=== PATIENT | female | born 1950 ===

== ENCOUNTER 2017-01-28 16:16 | Emergency (ER) | payer OTHER ==
--- NOTE | 2017-01-28 19:30 | C.PDOC ---
History Of Present Illness 66 y/o female presents to ED with complaints of exacerbation of baseline dizziness, occipital headache, and elevated blood pressure. Patient also reports c/o of left foot pain, particularly in the arch, noting it worsens with walking up stairs. Patient states she took her normal morning medications today. Otherwise, denies leg swelling, chest pain, palpitations, visual changes , nausea, vomiting, or other complaints. Time Seen by Provider: 01/28/17 19:20 Chief Complaint (Nursing): Dizziness/Lightheaded History Per: Patient History/Exam Limitations: no limitations Onset/Duration Of Symptoms: Days Current Symptoms Are (Timing): Still Present Fall Associated With With Symptoms: No Recent travel outside of the [place]: No Past Medical History Reviewed: Historical Data, Nursing Documentation, Vital Signs Vital Signs: Last Vital Signs Temp 97.7 F 01/28/17 21:17 Pulse 57 L 01/28/17 21:17 Resp 18 01/28/17 21:17 BP 149/77 01/28/17 21:17 Pulse Ox 98 01/28/17 21:35 - Medical History PMH: HTN, Hypercholesterolemia, Kidney Stones, Chronic Kidney Disease (kidney stones) Surgical History: Appendectomy - [facility] Procedures INJECT/INFUSE NEC (08/22/14) INTRODUCTION OF SERUM/TOX/VACCINE INTO MUSCLE, PERC APPROACH (09/04/16) UMBIL HERNIA REPAIR NEC (07/21/98) Family History: States: Hypertension - Social History Hx Alcohol Use: No Hx Substance Use: No - Immunization History Hx Influenza Vaccination: Yes Review Of Systems Except As Marked, All Systems Reviewed And Found Negative. Constitutional: Negative for: Fever, Chills Cardiovascular: Negative for: Chest Pain, Palpitations Respiratory: Negative for: Cough, Shortness of Breath Gastrointestinal: Negative for: Nausea, Vomiting Skin: Negative for: Rash Neurological: Positive for: Headache, Dizziness. Negative for: Weakness, Numbness Physical Exam - Physical Exam Appears: Non-toxic, No Acute Distress Skin: Normal Color, Warm, Dry Head: Atraumatic, Normacephalic Eye(s): bilateral: Normal Inspection, EOMI Nose: Normal Oral Mucosa: Moist Chest: Symmetrical Cardiovascular: Rhythm Regular Respiratory: Normal Breath Sounds, No Rales, No Rhonchi, No Wheezing Gastrointestinal/Abdominal: Soft, No Tenderness, No Guarding, No Rebound Back: Normal Inspection Extremity: Normal ROM, Tenderness (mild, arch of left foot), No Pedal Edema, Capillary Refill (< 2 sec.), No Deformity, No Swelling Extremity: Bilateral: Normal Color And Temperature Pulses: Left Dorsalis Pedis: Normal, Right Dorsalis Pedis: Normal Neurological/Psych: Oriented x3, Normal Speech, Normal Cognition ED Course And Treatment - Laboratory Results Result Diagrams: 01/28/17 19:41 01/28/17 19:41 Lab Interpretation: Normal (ua neg.) ECG: Interpreted By Me ECG Rhythm: Sinus Rhythm ECG Interpretation: Normal Rate From EC O2 Sat by Pulse Oximetry: 98 (RA) Pulse Ox Interpretation: Normal - Radiology CXR: Interpreted by Me CXR Interpretation: Yes: No Acute Disease - CT Scan/US Head CT Other Rad Studies (CT/US): Read By Radiologist, Radiology Report Reviewed CT/US Interpretation: IMPRESSION: 1. No definite acute intracranial abnormality. 2. Incidental/non-acute findings are described above. Progress Note: CT Head, EKG, CxR, bloodwork ordered. Treated with Toradol, Ultram, Vasotec. Placed on lunchroom monitor. CT head returns negative for acute abnormality. Reevaluation Time: 21:36 Reassessment Condition: Improved (MONSON and HTN resolved) Medical Decision Making Medical Decision Making: elevated bp even with good med compliance increase/maximize Zestril 20-> 40 mg daily, f/u in Clinic. Disposition Doctor Will See Patient In The: Office Counseled Patient/Family Regarding: Studies Performed, Diagnosis - Disposition Disposition: HOME/ ROUTINE Disposition Time: 21:37 Condition: GOOD Additional Instructions: Augmenta arnold Zestril de 20 mg diario hasta 40 mg diario. Sigue con arnold medico o' en la Clinica en 2-3 semanas. Prescriptions: Lisinopril [Zestril] 40 mg PO DAILY #30 tab Instructions: Hypertension (ED) Print Language: PORTUGUESE - Clinical Impression Clinical Impression: HTN (hypertension), Headache - Scribe Statement The provider has reviewed the documentation as recorded by the Ana Pimentel Provider Attestation: All medical record entries made by the Estephanieibyao were at my direction and personally dictated by me. I have reviewed the chart and agree that the record accurately reflects my personal performance of the history, physical exam, medical decision making, and the department course for this patient. I have also personally directed, reviewed, and agree with the discharge instructions and disposition.
[2017-01-28] MEDS ORDERED: Sodium Chloride 0.9% 1,000 ML ONE (19:42)
[2017-01-28 19:54] LABS: BASO # 0.1 K/uL (0.0-0.2); BASO % 0.8 % (0.0-2.0); EOS # 0.3 K/uL (0.0-0.7); EOS % 4.1 % (0.0-4.0); HEMATOCRIT 39.1 % (34.0-47.0); LYMPH # 2.1 K/uL (1.0-4.3); LYMPH % 29.5 % (20.0-40.0); MEAN CELL VOLUME 89.4 fL (81.0-99.0); MEAN CORPUSCULAR HEMOGLOBIN 29.7 pg (27.0-31.0); MEAN CORPUSCULAR HGB CONC 33.2 g/dL (33.0-37.0); MEAN PLATELET VOLUME 10.1 fL (7.2-11.7); MONO # 0.4 K/uL (0.0-0.8); MONO % 5.7 % (0.0-10.0); RED CELL DISTRIBUTION WIDTH 12.9 % (11.5-14.5); WHITE BLOOD COUNT 7.1 K/uL (4.8-10.8)
[2017-01-28 20:02] LABS: CHLORIDE 104 mmol/L (98-107)
[2017-01-28 20:03] LABS: SODIUM 138 mmol/L (132-148)
[2017-01-28 20:04] LABS: INR 1.1
[2017-01-28 20:05] LABS: CARBON DIOXIDE 27 mmol/L (22-30); CHOLESTEROL 205 mg/dL (0-199)
[2017-01-28 20:06] LABS: ALB/GLOB RATIO 1.2 (1.0-2.1); ALKALINE PHOSPHATASE 74 U/L (38-126); ALT/SGPT 12 U/L (9-52); AST/SGOT 49 U/L (14-36); BILIRUBIN,TOTAL 1.2 mg/dL (0.2-1.3); BLOOD UREA NITROGEN 15 mg/dL (7-17); GFR AFRICAN-AMERICAN > 60; GLUCOSE,RANDOM 95 mg/dL (65-105); TOTAL PROTEIN 8.2 g/dL (6.3-8.3)
[2017-01-28 20:13] LABS: POTASSIUM 5.3 mmol/L (3.6-5.2)
[2017-01-28 20:14] LABS: RBC URINE < 1 /hpf (0-3); URINE BACTERIA RARE (<OCC); URINE BILIRUBIN NEGATIVE (NEGATIVE); URINE BLOOD 2+ (NEGATIVE); URINE COLOR Straw (YELLOW); URINE GLUCOSE (UA) NORMAL (Normal); URINE KETONE NEGATIVE (NEGATIVE); URINE LEUKOCYTE ESTERASE 1+ Leu/uL (Negative); URINE PROTEIN NEGATIVE (NEGATIVE); URINE UROBILINOGEN NORMAL mg/dL (0.2-1.0); WBC URINE 1 /hpf (0-5)
[2017-01-28 20:28] VITALS: RESP 18
--- NOTE | 2017-01-28 21:09 | CT ---
EXAM: CT Head Without Intravenous Contrast CLINICAL HISTORY: 66 years old, female; Signs and symptoms; Other: High blood pressure; Additional info: Occ MONSON, elev BP, h/o vertigo, ? cerebellar TECHNIQUE: Axial computed tomography images of the head/brain without intravenous contrast. This CT exam was performed using one or more of the following dose reduction techniques: automated exposure control, adjustment of the mA and/or kV according to patient size, and/or use of iterative reconstruction technique. COMPARISON: No relevant prior studies available. FINDINGS: Brain: Mild atrophy. No intracranial hemorrhage. No mass. No definite edema. Ventricles: No hydrocephalus. Bones/joints: No acute fracture. Soft tissues: Unremarkable. Vasculature: Mild atherosclerotic disease of intracranial arteries. Sinuses: Scattered minimal to mild mucosal thickening. Mastoid air cells: No mastoid effusion. Orbits: Unremarkable as visualized. IMPRESSION: 1. No definite acute intracranial abnormality. 2. Incidental/non-acute findings are described above.
[2017-01-28 21:18] VITALS: BP 149/77; PULSE 57; TEMP 97.7
[2017-01-28 21:20] VITALS: O2SAT 98
--- NOTE | 2017-01-29 08:45 | RAD ---
HISTORY: Admission film COMPARISON: No prior. FINDINGS: LUNGS: Diffuse increased interstitial lung markings. No focal infiltrate or effusion. Mild venous congestion. Biapical pleural thickening with upper lobe granulomatous changes. PLEURA: No significant pleural effusion identified, no pneumothorax apparent. CARDIOVASCULAR: Tortuous aorta. OSSEOUS STRUCTURES: Degenerative changes in the spine and shoulders. Question minimal tendinopathy of the right proximal humerus. VISUALIZED UPPER ABDOMEN: Normal. OTHER FINDINGS: None. IMPRESSION: Diffuse increased interstitial lung markings. No focal infiltrate or effusion. Mild venous congestion. Biapical pleural thickening with upper lobe granulomatous changes.
--- NOTE | 2017-01-31 00:27 | CARD ---
APPROVED REPORT EKG Measurement Heart [id number] <Conclusion> Sinus bradycardia Otherwise normal ECG
== END 2017-01-28 21:50 | disposition home or self-care (01) ==
LOC: C.ER 16:16
DX: I10 Essential (primary) hypertension (principal); R51 Headache
CPT/HCPCS: 70450; 71010; 80053; 80061; 81001; 82948; 83036; 84484; 85025; 85610; 85730; 96374; 99285; J1885

== ENCOUNTER 2017-03-07 16:32 | Inpatient (IN) | payer MEDICAID, OTHER ==
--- NOTE | 2017-03-07 17:02 | C.PDOC ---
History Of Present Illness 66 y/o female sent to the emergency department from the clinic with complaints of headache and blurry vision, which she has had for 2 days. Patient with reported elevated BP in the clinic. Sent to ER for evaluation to r/o stroke. Pt at bedside reports mild right leg pain she has had for the last month. Denies any other symptoms. Time Seen by Provider: 03/07/17 16:47 Chief Complaint (Nursing): High Blood Pressure History Per: Patient History/Exam Limitations: no limitations Onset/Duration Of Symptoms: Days Current Symptoms Are (Timing): Still Present Associated Symptoms: Blurred Vision, Headache Recent travel outside of the [place]: No Past Medical History Reviewed: Historical Data, Nursing Documentation, Vital Signs Vital Signs: Last Vital Signs Temp 98.3 F 03/08/17 04:00 Pulse 52 L 03/08/17 04:00 Resp 20 03/08/17 04:00 BP 151/67 H 03/08/17 04:00 Pulse Ox 98 03/08/17 04:00 - Medical History PMH: HTN, Hypercholesterolemia, Kidney Stones, Chronic Kidney Disease (kidney stones) Surgical History: Appendectomy - [facility] Procedures INJECT/INFUSE NEC (08/22/14) INTRODUCTION OF SERUM/TOX/VACCINE INTO MUSCLE, PERC APPROACH (09/04/16) UMBIL HERNIA REPAIR NEC (07/21/98) Family History: States: Hypertension - Social History Hx Alcohol Use: No Hx Substance Use: No - Immunization History Hx Influenza Vaccination: Yes Review Of Systems Except As Marked, All Systems Reviewed And Found Negative. Constitutional: Negative for: Fever, Chills Eyes: Positive for: Other (blurry vision) Cardiovascular: Negative for: Chest Pain, Palpitations Respiratory: Negative for: Cough, Shortness of Breath, Wheezing Gastrointestinal: Negative for: Nausea, Vomiting Musculoskeletal: Positive for: Leg Pain (right). Negative for: Neck Pain Neurological: Positive for: Headache. Negative for: Weakness, Numbness, Dizziness Physical Exam - Physical Exam Appears: Non-toxic, No Acute Distress Skin: Normal Color, Warm, Dry Head: Atraumatic, Normacephalic Eye(s): bilateral: Normal Inspection, PERRL, EOMI Oral Mucosa: Moist Neck: No Paracervical Tenderness, Supple Chest: Symmetrical Cardiovascular: Rhythm Regular, No Murmur Respiratory: Normal Breath Sounds, No Accessory Muscle Use, No Rales, No Rhonchi , No Wheezing Gastrointestinal/Abdominal: Soft, No Tenderness, No Guarding, No Rebound Back: Normal Inspection Extremity: Normal ROM, Capillary Refill (< 2 sec. ) Neurological/Psych: Oriented x3, Normal Speech, Normal Cognition, Normal Motor, Normal Sensation ED Course And Treatment - Laboratory Results Result Diagrams: 03/08/17 06:44 03/08/17 06:40 O2 Sat by Pulse Oximetry: 98 (RA) Pulse Ox Interpretation: Normal - CT Scan/US CT Head Other Rad Studies (CT/US): Read By Radiologist, Radiology Report Reviewed CT/US Interpretation: FINDINGS: HEMORRHAGE: No intracranial hemorrhage. BRAIN : No mass effect or edema. The duque-white matter differentiation appears intact. Re-identified 5 mm right basal ganglia lacunar infarct versus dilated perivascular space. Please note that MRI with diffusion imaging is more sensitive in the detection of acute ischemic event. VENTRICLES: No hydrocephalus. CALVARIUM: Unremarkable. PARANASAL SINUSES: Unremarkable as visualized. No significant inflammatory changes. MASTOID AIR CELLS: Unremarkable as visualized. No inflammatory changes. OTHER FINDINGS: None. IMPRESSION: No acute findings. See above. NIHSS Stroke Scale - Date/Time Evaluation Performed Date Performed: 03/07/17 Time Performed: 18:45 - How Severe is the Stoke Level of Consciousness: 0=Alert LOC to Questions: 0=Both comments correct LOC to commands: 0=Obeys both correctly Best Gaze: 0=Normal Visual: 3=Bilateral Facial: 0=Normal Motor Arm - Left: 0=No drift Motor Arm - Right: 0=No drift Motor Leg - Left: 0=No drift Motor Leg - Right: 0=No drift Limb Ataxia: 0=Absent Sensory: 0=Normal Best Language: 0=No aphasia Dysarthia: 0=Normal articulation Extinction & Inattention (Neglect): 0=Normal, no object Score: 3 Severity Of Stroke: 1-4= Minor Stroke rTPA Inclusion/Exclusion - Refusal of Treatment Patient Refused Treatment: No - Inclusion Criteria for Altepase Patient is 18 years or Older: Yes The Clinical Diagnosis of Ischemic Stroke That is Causing a Potentially Disabling Neurological Deficit: No Time of Onset is Well Established to be Less Than 270 Minute Before Treatment Would Begin: No Risk/Benefit Discussed With Patient/Family Member Present: Yes Medical Decision Making Medical Decision Making: Plan: * Head CT, EKG, CxR, bloodwork * reassess Progress Notes: ekg sinus rohini [address] head negative for acute intracranial abnormality Disposition - Disposition Disposition: HOSPITALIZED Disposition Time: 18:44 Condition: STABLE - Clinical Impression Clinical Impression: Headache, Blurry vision, Hypertensive urgency - Scribe Statement The provider has reviewed the documentation as recorded by the Scribe Yrn Pimentel All medical record entries made by the Scribe were at my direction and personally dictated by me. I have reviewed the chart and agree that the record accurately reflects my personal performance of the history, physical exam, medical decision making, and the department course for this patient. I have also personally directed, reviewed, and agree with the discharge instructions and disposition. Decision To Admit - Pt Status Changed To: Hospital Disposition Of: Inpatient - Admit Certification Admit to Inpatient:: After my assessment, the patient will require hospitalization for at least two midnights. This is because of the severity of symptoms shown, intensity of services needed, and/or the medical risk in this patient being treated as an outpatient. - InPatient: Physician Admission Certification: I certify that this patient requires 2 or more midnights of care for the following reason:: pt hypertensive, r/o cva - . Bed Request Type: Telemetry Admitting Physician: Americo Martínez Patient Diagnosis: Headache, Blurry vision, Hypertensive urgency
[2017-03-07 17:33] LABS: BASO # 0.1 K/uL (0.0-0.2); BASO % 0.8 % (0.0-2.0); EOS # 0.3 K/uL (0.0-0.7); EOS % 4.4 % (0.0-4.0); HEMATOCRIT 39.8 % (34.0-47.0); LYMPH % 31.7 % (20.0-40.0); MEAN CELL VOLUME 89.3 fL (81.0-99.0); MEAN CORPUSCULAR HEMOGLOBIN 30.6 pg (27.0-31.0); MEAN CORPUSCULAR HGB CONC 34.3 g/dL (33.0-37.0); MEAN PLATELET VOLUME 9.8 fL (7.2-11.7); MONO # 0.4 K/uL (0.0-0.8); MONO % 6.7 % (0.0-10.0); RED CELL DISTRIBUTION WIDTH 12.9 % (11.5-14.5); WHITE BLOOD COUNT 6.3 K/uL (4.8-10.8)
[2017-03-07 17:39] LABS: CHLORIDE 99 mmol/L (98-107); POTASSIUM 4.4 mmol/L (3.6-5.2); SODIUM 140 mmol/L (132-148)
[2017-03-07 17:41] LABS: CHOLESTEROL 227 mg/dL (0-199); GFR AFRICAN-AMERICAN > 60
[2017-03-07 17:42] LABS: ALB/GLOB RATIO 1.2 (1.0-2.1); ALKALINE PHOSPHATASE 85 U/L (38-126); ALT/SGPT 42 U/L (9-52); AST/SGOT 32 U/L (14-36); BILIRUBIN,TOTAL 0.5 mg/dL (0.2-1.3); BLOOD UREA NITROGEN 14 mg/dL (7-17); CALCIUM 9.3 mg/dl (8.6-10.4); CARBON DIOXIDE 29 mmol/L (22-30); GLUCOSE,RANDOM 91 mg/dL (65-105); TOTAL PROTEIN 7.7 g/dL (6.3-8.3)
--- NOTE | 2017-03-07 18:02 | CT ---
PROCEDURE: CT HEAD WITHOUT CONTRAST. HISTORY: fay blurry vision COMPARISON: None available. TECHNIQUE: Axial computed tomography images were obtained through the head/brain without intravenous contrast. Radiation dose: Total exam DLP = 819.62 mGy-cm. This CT exam was performed using one or more of the following dose reduction techniques: Automated exposure control, adjustment of the mA and/or kV according to patient size, and/or use of iterative reconstruction technique. FINDINGS: HEMORRHAGE: No intracranial hemorrhage. BRAIN: No mass effect or edema. The duque-white matter differentiation appears intact. Re-identified 5 mm right basal ganglia lacunar infarct versus dilated perivascular space. Please note that MRI with diffusion imaging is more sensitive in the detection of acute ischemic event. VENTRICLES: No hydrocephalus. CALVARIUM: Unremarkable. PARANASAL SINUSES: Unremarkable as visualized. No significant inflammatory changes. MASTOID AIR CELLS: Unremarkable as visualized. No inflammatory changes. OTHER FINDINGS: None. IMPRESSION: No acute findings. See above.
[2017-03-07] MEDS ORDERED: Aspirin 325 mg EC Tablets PO ONE (18:14)
--- NOTE | 2017-03-07 19:56 | CP.PCM.HP ---
<Henry Bolden - Last Filed: 03/08/17 02:25> History of Present Illness - History of Present Illness History of Present Illness: CC: Headache x1week; Blurry vision u9aeisl. HPI: This 66 y/o female with PMHx HTN, Hypercholesterolemia, Kidney Stones, Vertigo - was sent to the emergency department from the clinic due to HTN, complaints of Headache x1wk and Blurry vision x1 month. She went to the clinic to have these symptoms addressed, and admits to overall poor followup with her physician. She describes the headache as occipital in nature, intermittent, lasting for several hours per day, and is not associated with positioning. She also admits to associated light headedness for the past week. She admits to blurry vision for the past month, and describes it as a "thin layer" covering both eyes and causing her vision to be less clear. She has had floaters for many years, and reports that they have not increased or changed significantly. She also wears eye glasses for distance, and does not feel her blurry vision is related to her prescription. Upon further questioning, patient also complains of chest pain on exertion for the past year, especially when walking more than 3 blocks or walking up 3 flights of stairs to her apartment. She does not sleep with any pillows at night and does not get SOB while laying flat. She does c/o mild leg/arm swelling, present at the end of a long day, most days of the week, with intermittent tingling of the L fingertips when the arm is swollen. Of note , patients dose of lisiopril was increased to 40 last month, however this made her feel light headed. She has reduced her dose to 20mg PO qd for the past 3 weeks, and has felt less lightheaded. Denies f/c, weakness, dizziness, chest pain, SOB, abdominal pain, n/v, d/c, recent travel, numbness, tingling, or any additional acute complaints. 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 PMD: [facility] Review of Systems: -Gen: +headache. denies fever, chills, lethargy, weakness. -HEENT: +blurry vision. denies dizziness, change in hearing, sore throat, dysphagia, congestion. -Cardio: +leg/arm edema at night. denies chest pain, palpitations, orthopnea. -Resp: denies cough, dyspnea, hemoptysis, wheezing, pain on inspiration, congestion, mucous. -GI: pt denies abdominal pain, nausea/vomiting, diarrhea/constipation, hematochezia. -: pt denies dysuria, urinary freq, incontinence, hematuria, change in urinary stream. -MSK: denies back pain, muscle weakness, radiating pain. -Skin: denies itching, rash, lesions. -Neuro: +L arm tingling when arm becomes swollen. denies confusion, focal weakness, radicular pain, syncope. -Psych: denies anxiety, depression, H/I, S/I, hallucinations. Present on Admission - Present on Admission Any Indicators Present on Admission: No Past Patient History - Infectious Disease Hx of Infectious Diseases: None - Tetanus Immunizations Tetanus Immunization: Unknown - Past Medical History & Family History Past Medical History?: Yes - Past Social History Smoking Status: Never Smoked - CARDIAC Hx Hypercholesterolemia: Yes Hx Hypertension: Yes - PULMONARY Hx Respiratory Disorders: No - NEUROLOGICAL Hx Neurological Disorder: No - HEENT Hx HEENT Problems: No - RENAL Hx Chronic Kidney Disease: Yes (kidney stones) Hx Kidney Stones: Yes - ENDOCRINE/METABOLIC Hx Endocrine Disorders: No - HEMATOLOGICAL/ONCOLOGICAL Hx Human Immunodeficiency Virus (HIV): No - INTEGUMENTARY Hx Dermatological Problems: No - MUSCULOSKELETAL/RHEUMATOLOGICAL Hx Musculoskeletal Disorders: Yes Hx Falls: Yes - GASTROINTESTINAL Hx Gastrointestinal Disorders: No - GENITOURINARY/GYNECOLOGICAL Hx Genitourinary Disorders: No - PSYCHIATRIC Hx Substance Use: No - SURGICAL HISTORY Hx Appendectomy: Yes - ANESTHESIA Hx Anesthesia: Yes Hx Anesthesia Reactions: No Hx Malignant Hyperthermia: No Meds Allergies/Adverse Reactions: Allergies Allergy/AdvReac Type Severity Reaction Status Date / Time ibuprofen Allergy Mild RASH Verified 03/07/17 16:40 Physical Exam - Constitutional Appears: Non-toxic, No Acute Distress - Head Exam Head Exam: ATRAUMATIC, NORMAL INSPECTION - Eye Exam Eye Exam: EOMI, Normal appearance (no cataracts appreciated), PERRL - ENT Exam ENT Exam: Mucous Membranes Moist, Normal Exam - Neck Exam Neck exam: Negative for: Lymphadenopathy - Respiratory Exam Respiratory Exam: Clear to Auscultation Bilateral, NORMAL BREATHING PATTERN. absent: Rhonchi, Wheezes - Cardiovascular Exam Cardiovascular Exam: Bradycardia, +S1, +S2. absent: Diastolic murmur Additional comments: no carrotid bruits - GI/Abdominal Exam GI & Abdominal Exam: Normal Bowel Sounds, Soft. absent: Tenderness - Extremities Exam Extremities exam: Positive for: normal inspection, pedal edema (mild), pedal pulses present. Negative for: joint swelling, tenderness - Back Exam Back exam: NORMAL INSPECTION. absent: CVA tenderness (L), CVA tenderness (R) - Neurological Exam Neurological exam: Alert, CN II-XII Intact, Oriented x3, Reflexes Normal Additional comments: NIHSS Stroke Scale - Date/Time Evaluation Performed Date Performed: 03/07/17 Time Performed: 18:45 - How Severe is the Stoke Level of Consciousness: 0=Alert LOC to Questions: 0=Both comments correct LOC to commands: 0=Obeys both correctly Best Gaze: 0=Normal Visual: 3=Bilateral Facial: 0=Normal Motor Arm - Left: 0=No drift Motor Arm - Right: 0=No drift Motor Leg - Left: 0=No drift Motor Leg - Right: 0=No drift Limb Ataxia: 0=Absent Sensory: 0=Normal Best Language: 0=No aphasia Dysarthia: 0=Normal articulation Extinction & Inattention (Neglect): 0=Normal, no object Score: 3 Severity Of Stroke: 1-4= Minor Stroke - Psychiatric Exam Psychiatric exam: Normal Affect, Normal Mood - Skin Skin Exam: Dry, Intact, Normal Color, Warm Additional comments: Cheecks/forehead appeared flushed. Warm to palpation Results - Vital Signs Recent Vital Signs: Last Vital Signs Temp 97.8 F 03/07/17 16:37 Pulse 50 L 03/07/17 18:09 Resp 17 03/07/17 18:09 BP 197/79 H 03/07/17 18:09 Pulse Ox 98 03/07/17 18:45 - Labs Result Diagrams: 03/07/17 17:20 03/07/17 17:20 Assessment & Plan - Assessment and Plan (Free Text) Assessment: Hypertensive Urgency * r/o CVA - no focal deficits appreciated, except for blurry vision x1 month. * ED course: ASA 325 + Hydralazine 10mg * EKG - sinus rohini * CT head negative, see full report * CXR - negative, see full report * BP 191/82 in ED * f/u Echo, BNP * Continue home ASA 81, Lisinopril 20mg PO qd, Lipitor 10mg PO qd Headache / Blurry Vision * CT head w/o contrast - negative * ekg sinus rohini 50 bpm * prior admission 08/2016 - similar complaints, diag. w/ postural hypotension. * Orthostatics Q8 * Neuro consult, Dr. Carter, f/u recs * Tylenol 650mg PO Q6H, PRN headache Hypercholesterolema * Continue home Lipitor 10mg PO qd -> Crestor 5mg PO HS * f/u lipid panel Hx of Vertigo * untreated, never followed up * Antivert 12.5mg PO Q12H * Neuro consult, Dr. Carter, f/u recs Prophylaxis * SCD C/I * heart healthy diet * Pepcid 20mg PO BID * Hep 5k SC q8H - Date & Time Date: 03/07/17 Time: 20:00 <Jaciel Brady - Last Filed: 03/08/17 05:54> Results - Vital Signs Recent Vital Signs: Last Vital Signs Temp 98.3 F 03/08/17 04:00 Pulse 52 L 03/08/17 04:00 Resp 20 03/08/17 04:00 BP 151/67 H 03/08/17 04:00 Pulse Ox 98 03/08/17 04:00 - Labs Result Diagrams: 03/07/17 17:20 03/07/17 17:20 Labs: Laboratory Results - last 24 hr 03/07/17 21:51 POC Glucose (mg/dL) 93 Assessment & Plan - Date & Time Date: 03/08/17 (I have seen and examined the patient. I agree with the findings and plan of care as documented by Dr. Bolden. Patient with hypertensive urgency accompanied with headache/vision changes. Hydralazine given in ED. Continue home meds. Symptomatic treatment. Some improvement but headache still not completely relieved. History of vertigo. Noncompliant with meds. Restarts meclizine. Monitor for acute changes.) Time: 05:53 Attending/Attestation - Attestation I have personally seen and examined this patient.: Yes I have fully participated in the care of the patient.: Yes I have reviewed all pertinent clinical information: Yes
[2017-03-08 07:09] LABS: ALB/GLOB RATIO 1.3 (1.0-2.1); ALKALINE PHOSPHATASE 67 U/L (38-126); ALT/SGPT 36 U/L (9-52); AST/SGOT 30 U/L (14-36); BILIRUBIN,TOTAL 0.3 mg/dL (0.2-1.3); BLOOD UREA NITROGEN 14 mg/dL (7-17); CALCIUM 8.9 mg/dl (8.6-10.4); CARBON DIOXIDE 30 mmol/L (22-30); CHLORIDE 99 mmol/L (98-107); CHOLESTEROL 195 mg/dL (0-199); GFR AFRICAN-AMERICAN > 60; GLUCOSE,RANDOM 97 mg/dL (65-105); MAGNESIUM 1.7 mg/dL (1.6-2.3); PHOSPHOROUS 4.1 mg/dL (2.5-4.5); POTASSIUM 3.8 mmol/L (3.6-5.2); SODIUM 139 mmol/L (132-148); TOTAL PROTEIN 6.4 g/dL (6.3-8.3)
[2017-03-08 07:17] LABS: BASO % 0.8 % (0.0-2.0); EOS # 0.3 K/uL (0.0-0.7); EOS % 5.3 % (0.0-4.0); HEMATOCRIT 37.3 % (34.0-47.0); LYMPH # 1.8 K/uL (1.0-4.3); LYMPH % 35.4 % (20.0-40.0); MEAN CELL VOLUME 89.3 fL (81.0-99.0); MEAN CORPUSCULAR HEMOGLOBIN 30.8 pg (27.0-31.0); MEAN CORPUSCULAR HGB CONC 34.5 g/dL (33.0-37.0); MEAN PLATELET VOLUME 10.2 fL (7.2-11.7); MONO # 0.3 K/uL (0.0-0.8); MONO % 6.7 % (0.0-10.0); NRBC % 0.1 % (0.0-2.0)
[2017-03-08 07:22] LABS: FREE T4 1.24 ng/dL (0.78-2.19)
[2017-03-08 07:35] LABS: THYROID STIMULATING HORMONE 6.23 mIU/L (0.46-4.68)
[2017-03-08 07:36] LABS: THYROID STIMULATING HORMONE 6.37 mIU/L (0.46-4.68)
--- NOTE | 2017-03-08 07:41 | CP.PCM.CON ---
History of Present Illness - History of Present Illness History of Present Illness: consult dictated NO LATERLIZING SIGNS CHCK MRI WORK UP PER ORDER CORRECT BP Past Patient History - Infectious Disease Hx of Infectious Diseases: None - Tetanus Immunizations Tetanus Immunization: Unknown - Past Medical History & Family History Past Medical History?: Yes - Past Social History Smoking Status: Never Smoked - CARDIAC Hx Hypercholesterolemia: Yes Hx Hypertension: Yes - PULMONARY Hx Respiratory Disorders: No - NEUROLOGICAL Hx Neurological Disorder: No - HEENT Hx HEENT Problems: No - RENAL Hx Chronic Kidney Disease: Yes (kidney stones) Hx Kidney Stones: Yes - ENDOCRINE/METABOLIC Hx Endocrine Disorders: No - HEMATOLOGICAL/ONCOLOGICAL Hx Human Immunodeficiency Virus (HIV): No - INTEGUMENTARY Hx Dermatological Problems: No - MUSCULOSKELETAL/RHEUMATOLOGICAL Hx Musculoskeletal Disorders: Yes Hx Falls: Yes - GASTROINTESTINAL Hx Gastrointestinal Disorders: No - GENITOURINARY/GYNECOLOGICAL Hx Genitourinary Disorders: No - PSYCHIATRIC Hx Substance Use: No - SURGICAL HISTORY Hx Appendectomy: Yes - ANESTHESIA Hx Anesthesia: Yes Hx Anesthesia Reactions: No Hx Malignant Hyperthermia: No Meds Allergies/Adverse Reactions: Allergies Allergy/AdvReac Type Severity Reaction Status Date / Time ibuprofen Allergy Mild RASH Verified 03/07/17 16:40 - Medications Medications: Current Medications Acetaminophen (Tylenol 325mg Tab) 650 mg PO Q6 PRN PRN Reason: Headache Aspirin (Ecotrin) 81 mg PO DAILY [facility] Famotidine (Pepcid) 20 mg PO BID [facility] Heparin Sodium (Porcine) (Heparin) 5,000 units SC Q8 [facility] Last Admin: 03/08/17 05:30 Dose: 5,000 units Lisinopril (Zestril) 20 mg PO DAILY [facility] Meclizine HCl (Antivert) 12.5 mg PO Q12H [facility] Last Admin: 03/08/17 00:00 Dose: 12.5 mg Rosuvastatin Calcium (Crestor) 5 mg PO HS [facility] Last Admin: 03/07/17 21:49 Dose: 5 mg Results - Vital Signs Recent Vital Signs: Last Vital Signs Temp 98.3 F 03/08/17 04:00 Pulse 52 L 03/08/17 04:00 Resp 20 03/08/17 04:00 BP 151/67 H 03/08/17 04:00 Pulse Ox 98 03/08/17 04:00 - Labs Result Diagrams: 03/08/17 06:44 03/08/17 06:40 Labs: Laboratory Results - last 24 hr 03/07/17 03/08/17 03/08/17 21:51 06:23 06:40 WBC RBC Hgb Hct MCV MCH MCHC RDW Plt Count MPV Neut % (Auto) Lymph % (Auto) Hendricks % (Auto) Eos % (Auto) Baso % (Auto) Neut # Lymph # Hendricks # Eos # Baso # APTT Sodium Potassium Chloride Carbon Dioxide Anion Gap BUN Creatinine Est GFR ( Amer) Est GFR (Non-Af Amer) POC Glucose (mg/dL) 93 105 Random Glucose Calcium Phosphorus Magnesium Total Bilirubin AST ALT Alkaline Phosphatase C-React Prot High Sens 1.36 NT-Pro-B Natriuret Pep Total Protein Albumin Globulin Albumin/Globulin Ratio Triglycerides Cholesterol LDL Cholesterol Direct HDL Cholesterol Free T4 1.24 TSH 3rd Generation 03/08/17 03/08/17 03/08/17 06:40 06:44 06:44 WBC 5.0 RBC 4.17 Hgb 12.8 Hct 37.3 MCV 89.3 MCH 30.8 MCHC 34.5 RDW 13.0 Plt Count 164 MPV 10.2 Neut % (Auto) 51.8 Lymph % (Auto) 35.4 Hendricks % (Auto) 6.7 Eos % (Auto) 5.3 H Baso % (Auto) 0.8 Neut # 2.6 Lymph # 1.8 Hendricks # 0.3 Eos # 0.3 Baso # 0.0 APTT 28 Sodium 139 Potassium 3.8 Chloride 99 Carbon Dioxide 30 Anion Gap 14 BUN 14 Creatinine 0.6 L Est GFR ( Amer) > 60 Est GFR (Non-Af Amer) > 60 POC Glucose (mg/dL) Random Glucose 97 Calcium 8.9 Phosphorus 4.1 Magnesium 1.7 Total Bilirubin 0.3 AST 30 ALT 36 Alkaline Phosphatase 67 C-React Prot High Sens NT-Pro-B Natriuret Pep 167 Total Protein 6.4 Albumin 3.6 Globulin 2.7 Albumin/Globulin Ratio 1.3 Triglycerides 105 Cholesterol 195 LDL Cholesterol Direct 145 H HDL Cholesterol 49 Free T4 TSH 3rd Generation 6.23 H
--- NOTE | 2017-03-08 09:08 | RAD ---
HISTORY: stroke alert COMPARISON: 01/28/2017 FINDINGS: LUNGS: No active pulmonary disease. PLEURA: No significant pleural effusion identified, no pneumothorax apparent. CARDIOVASCULAR: Normal. OSSEOUS STRUCTURES: No significant abnormalities. VISUALIZED UPPER ABDOMEN: Normal. OTHER FINDINGS: None. IMPRESSION: No active disease.
--- NOTE | 2017-03-08 11:26 | MRI ---
PROCEDURE: MRI BRAIN WITHOUT CONTRAST HISTORY: stroke COMPARISON: Noncontrast head CT from 03/07/2017 TECHNIQUE: Multiplanar, multisequence MR images of the brain were obtained without intravenous contrast enhancement. FINDINGS: HEMORRHAGE: None DWI: No evidence of an acute or early subacute infarction. BRAIN PARENCHYMA: There are mild chronic microangiopathic changes. There is no mass, mass effect or abnormal extra-axial fluid collection. There is no territorial infarction. The midline sagittal structures are normal. VENTRICLES: There is mild age-related global parenchymal volume loss and proportionate enlargement of the ventricles and cortical sulci. CRANIUM: There is normal bone marrow signal pattern. ORBITS: Grossly unremarkable. PARANASAL SINUSES/MASTOIDS: There is mild mucosal thickening in the left posterior ethmoid air cells, and mild circumferential mucosal thickening in the sphenoid sinus and frontal sinuses. The remaining included paranasal sinuses and mastoid air cells are predominantly clear P VASCULAR SYSTEM: There are normal signal voids in the larger intracranial arteries. OTHER FINDINGS: None. IMPRESSION: 1. No acute intracranial abnormality. 2. Mild chronic microangiopathic changes and mild age-related global parenchymal volume loss.
--- NOTE | 2017-03-08 15:16 | CON ---
DATE: 03/08/2017 REASON FOR CONSULTATION: Visual impairment. CHIEF COMPLAINT: The patient was brought in to [facility] with history of headache, hypertension and visual disturbances. From neurological point of view, I was called in to evaluate for her further management. HISTORY OF PRESENT ILLNESS: The patient is a right-handed Georgian-speaking female, presenting with headache and visual impairment right more than her left side for the last 1 week. The symptoms associating with mild lightheadedness. She denies temporal headache; however, she admitted to the hospital with an headache. Her headache is around 4/5, not associating with nausea or vomiting. No history of double vision. No history of bulbar dysfunction. No history of focal weakness. PAST MEDICAL HISTORY: Hypertension, dyslipidemia, renal stone and vertigo. PAST SURGICAL HISTORY: Appendectomy in the past. MEDICATIONS AT HOME: Lipitor, lisinopril, aspirin. ALLERGIES: TO IBUPROFEN. FAMILY HISTORY: Hypertension and RI on her mother's history. SOCIAL HISTORY: Quit smoking by a year ago. Denies alcohol use. REVIEW OF SYSTEMS: As per H and P. MEDICATIONS: Meclizine, Crestor, aspirin, heparin, Pepcid, Tylenol and Zestril. PHYSICAL EXAMINATION: VITAL SIGNS: Blood pressure 151/67, mean arterial pressure of 95, respiratory rate of 16, temperature afebrile. NECK: Supple. No carotid bruits. HEART: Sounds are regular. CHEST: Fair air entry. EXTREMITIES: No edema in legs. NEUROLOGICAL: Mental status examination; She is awake, alert, oriented to person, place, and time. Speech is clear. Naming, repetition, fluency, comprehension all within normal. The patient is communicable only in Georgian. MOTOR EXAMINATION: She could able to lift both upper extremities against the gravity. No drift noted. Power is symmetric on either side. DEEP TENDON REFLEXES: At both knees are absent and at both ankles are absent. Plantars are downgoing. COORDINATION: [id number] test is intact. Examination of the temporal artery, no beading appearance, no tenderness. No Tinel sign positive over temporal artery as wells as TMJ is normal. CONCLUSION: Upon reviewing her history and neurological examination, the patient presenting with no lateralizing sign except subjective visual impairment. 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 Rest of the examination does not show the any evidence of possible Temporal Arteritis. The patient is also presenting with mild sensory motor neuropathy as per examination. LABORATORY DATA: Workup WBC 5.0, hemoglobin 12.8, hematocrit 37.3, platelet 164. Sodium 139, potassium 3.8, chloride 99, bicarbonate 30, BUN 14, creatinine 0.6, PT 11.6, INR 1.0, PTT is 27. Cholesterol 227 and LDL 163. RECOMMENDATIONS: 1. The patient is requested to have an MRI of the brain to rule out any ischemic process. 2. Continue statin and antiplatelet. Rest of the blood workup has requested. 3. If the patient MRI is negative and the patient can be discharge from neurological point of view and if her symptoms are persistent, she should be follow up as outpatient and she should have ophthalmology consultation as well. Javan Carter MD MTDD
--- NOTE | 2017-03-08 15:21 | VASCLAB ---
PROCEDURE: HISTORY: stenosis COMPARISON: None available. TECHNIQUE: Grayscale and duplex Doppler evaluation of the cervical carotid and vertebral arteries were performed. The common carotid, carotid bifurcations and cervical Internal Carotid Artery (ICA) and proximal External Carotid Artery (ECA) were evaluated. The vertebral arteries were evaluated for gross patency and flow direction. Report prepared by Marlon Figueroa, BS, RVT FINDINGS: RIGHT CAROTID ARTERIES: 1. Common Carotid Artery: No significant focal plaque formation of the right common carotid artery. Maximum Peak Systolic velocity: 85 cm/sec: End-diastolic velocity 24 cm/sec. 2. Carotid Bifurcation: plaque formation. Maximum Peak Systolic velocity: 88 cm/sec: End-diastolic velocity 26 cm/sec. 3. Internal Carotid Artery: Minimal plaque formation of the right proximal ICA which does not result in hemodynamically significant stenosis. Plaque description: Calcific 3.1. Proximal Segment: Peak systolic velocity 89 cm/sec: End-diastolic velocity 34 cm/sec - % stenosis 0-15% 3.2. Middle Segment: Peak systolic velocity 103 cm/sec: End-diastolic velocity 37 cm/sec - % stenosis 0-15% 3.3. Distal Segment: Peak systolic velocity 107 cm/sec: End-diastolic velocity 29 cm/sec - % stenosis 0-15% 4. External Carotid Artery: No significant focal plaque formation. Peak systolic velocity 151 cm/sec 5. ICA/CCA Ratio: 1.3 LEFT CAROTID ARTERIES: 1. Common Carotid Artery: No significant focal plaque formation of the left common carotid artery. Maximum Peak Systolic velocity: 80 cm/sec: End-diastolic velocity 24 cm/sec. 2. Carotid Bifurcation: plaque formation. Maximum Peak Systolic velocity: 71 cm/sec: End-diastolic velocity 23 cm/sec. 3. Internal Carotid Artery: Plaque description: 3.1. Proximal Segment: Peak systolic velocity 103 cm/sec: End-diastolic velocity 29 cm/sec - % stenosis 0-15% 3.2. Middle Segment: Peak systolic velocity 103 cm/sec: End-diastolic velocity 27 cm/sec - % stenosis 0-15% 3.3. Distal Segment: Peak systolic velocity 70 cm/sec: End-diastolic velocity 17 cm/sec - % stenosis 0-15% 4. External Carotid Artery: No significant focal plaque formation. Peak systolic velocity 99 cm/sec 5. ICA/CCA Ratio: 1.3 VERTEBRAL ARTERIES: 1. Right Vertebral Artery: The right vertebral artery flow direction is antegrade. 2. Left Vertebral Artery: The left vertebral artery flow direction is antegrade. OTHER FINDINGS: 1. Right Brachial Blood pressure: 130 mmHg. 2. Left Brachial Blood pressure: 132 mmHg. IMPRESSION: RIGHT: Duplex scan does not suggest hemodynamically significant stenosis of the right extracranial carotid arteries. LEFT: Duplex scan does not suggest hemodynamically significant stenosis of the left extracranial carotid arteries.
[2017-03-08] MEDS: Amoxicillin-Clav 875-125 mg Tab PO SCH (16:20)
[2017-03-08] MEDS: Saccharomyces Boulardi 250 mg Cap PO SCH (18:07)
--- NOTE | 2017-03-08 19:10 | CP.PCM.PN ---
<Rola Guevara - Last Filed: 03/08/17 19:07> Subjective - Date & Time of Evaluation Date of Evaluation: 03/08/17 Time of Evaluation: 07:00 - Subjective Subjective: PGY1- Medicine Note- Dr. Sumner's Service Patient seen and examined at bedside. Patient complains of headache and blurry vision. Headache is 3/10 pain that is located at the occiput and is exacerbated upon movement. There are no exacerbating or remitting factors. Patient complains of blurry vision for the past month and also complains of intermittent black spots. Patient is able to see objects in the room and denies seeing flashing lights. Denies chest pain, shortness of breath, dizziness, numbness in fingers and toes, leg swelling and pain, fever, chills, nausea, vomiting, diarrhea, constipation, dysuria. Denies all other complaints. Objective - Vital Signs/Intake and Output Vital Signs (last 24 hours): Temp Pulse Resp BP Pulse Ox 98.1 F 58 L 18 115/71 96 03/08/17 16:00 03/08/17 16:00 03/08/17 16:00 03/08/17 16:00 03/08/17 16:00 - Medications Medications: Current Medications Acetaminophen (Tylenol 325mg Tab) 650 mg PO Q6 PRN PRN Reason: Headache Amoxicillin/Clavulanate Potassium (Augmentin 875 Mg-125 Mg Tab) 1 tab PO Q12H [facility] Last Admin: 03/08/17 16:20 Dose: 1 tab Aspirin (Ecotrin) 81 mg PO DAILY [facility] Last Admin: 03/08/17 10:22 Dose: 81 mg Famotidine (Pepcid) 20 mg PO BID [facility] Last Admin: 03/08/17 18:08 Dose: 20 mg Heparin Sodium (Porcine) (Heparin) 5,000 units SC Q8 [facility] Last Admin: 03/08/17 14:00 Dose: Not Given Lisinopril (Zestril) 20 mg PO DAILY [facility] Last Admin: 03/08/17 10:22 Dose: 20 mg Meclizine HCl (Antivert) 12.5 mg PO Q12H [facility] Last Admin: 03/08/17 16:20 Dose: 12.5 mg Rosuvastatin Calcium (Crestor) 5 mg PO HS [facility] Last Admin: 03/07/17 21:49 Dose: 5 mg Saccharomyces Leóni (Florastor) 250 mg PO BID [facility] Last Admin: 03/08/17 18:07 Dose: 250 mg - Labs Labs: 03/08/17 06:44 03/08/17 06:40 PT 11.6 SECONDS (9.7-12.2) 03/07/17 17:20 INR 1.0 03/07/17 17:20 APTT 28 SECONDS (21-34) 03/08/17 06:44 - Constitutional Appears: Well, Non-toxic, No Acute Distress - Head Exam Head Exam: ATRAUMATIC, NORMAL INSPECTION, NORMOCEPHALIC - Eye Exam Eye Exam: EOMI, Normal appearance, PERRL - ENT Exam ENT Exam: Mucous Membranes Moist, Normal Exam - Neck Exam Neck Exam: Full ROM, Normal Inspection. absent: Lymphadenopathy - Respiratory Exam Respiratory Exam: Clear to Ausculation Bilateral, NORMAL BREATHING PATTERN - Cardiovascular Exam Cardiovascular Exam: REGULAR RHYTHM, RRR. absent: Gallop, Rubs, Murmur - GI/Abdominal Exam GI & Abdominal Exam: Soft, Normal Bowel Sounds - Extremities Exam Extremities Exam: Full ROM, Normal Inspection - Back Exam Back Exam: NORMAL INSPECTION. absent: rash noted - Neurological Exam Neurological Exam: Alert, Awake, Oriented x3 - Psychiatric Exam Psychiatric exam: Normal Affect, Normal Mood - Skin Skin Exam: Intact, Normal Color, Warm Assessment and Plan - Assessment and Plan (Free Text) Assessment: Hypertensive Urgency * r/o CVA - no focal deficits appreciated, except for blurry vision x1 month. * ED course: ASA 325 + Hydralazine 10mg * EKG - sinus rohini * CT head negative, see full report * CXR - negative, see full report * MRI: no acute intracranial abnormality, mild chronic microangiopathic changes and mild age related global parenchymal volume loss * BP 191/82 in ED * f/u Echo * BNP: 167 * Continue home ASA 81, Lisinopril 20mg PO qd, Lipitor 10mg PO qd * TSH:6.23, T4: 1.14 Headache / Blurry Vision * CT head w/o contrast - negative * ekg sinus rohini 50 bpm * prior admission 08/2016 - similar complaints, diag. w/ postural hypotension. * Orthostatics Q8 * Neuro consult, Dr. Carter, f/u recs * Tylenol 650mg PO Q6H, PRN headache Hypercholesterolema * Continue home Lipitor 10mg PO qd -> Crestor 5mg PO HS * lipid panel: Triglycerides:105, Cholesterol: 195, LDL: 145, HDL:49 Hx of Vertigo * untreated, never followed up * Antivert 12.5mg PO Q12H * Neuro consult, Dr. Carter, help appreciated Prophylaxis * SCD C/I * heart healthy diet * Pepcid 20mg PO BID * Hep 5k SC q8H <Marija Sumner V - Last Filed: 03/08/17 20:16> Objective - Vital Signs/Intake and Output Vital Signs (last 24 hours): Temp Pulse Resp BP Pulse Ox 98.1 F 58 L 18 115/71 96 03/08/17 16:00 03/08/17 16:00 03/08/17 16:00 03/08/17 16:00 03/08/17 16:00 - Medications Medications: Current Medications Acetaminophen (Tylenol 325mg Tab) 650 mg PO Q6 PRN PRN Reason: Headache Amoxicillin/Clavulanate Potassium (Augmentin 875 Mg-125 Mg Tab) 1 tab PO Q12H [facility] Last Admin: 03/08/17 16:20 Dose: 1 tab Aspirin (Ecotrin) 81 mg PO DAILY [facility] Last Admin: 03/08/17 10:22 Dose: 81 mg Famotidine (Pepcid) 20 mg PO BID [facility] Last Admin: 03/08/17 18:08 Dose: 20 mg Heparin Sodium (Porcine) (Heparin) 5,000 units SC Q8 [facility] Last Admin: 03/08/17 14:00 Dose: Not Given Lisinopril (Zestril) 20 mg PO DAILY [facility] Last Admin: 03/08/17 10:22 Dose: 20 mg Meclizine HCl (Antivert) 12.5 mg PO Q12H [facility] Last Admin: 03/08/17 16:20 Dose: 12.5 mg Rosuvastatin Calcium (Crestor) 5 mg PO HS [facility] Last Admin: 03/07/17 21:49 Dose: 5 mg Saccharomyces Boulardii (Florastor) 250 mg PO BID [facility] Last Admin: 03/08/17 18:07 Dose: 250 mg - Labs Labs: 03/08/17 06:44 03/08/17 06:40 PT 11.6 SECONDS (9.7-12.2) 03/07/17 17:20 INR 1.0 03/07/17 17:20 APTT 28 SECONDS (21-34) 03/08/17 06:44 Attending/Attestation - Attestation I have personally seen and examined this patient.: Yes I have fully participated in the care of the patient.: Yes I have reviewed all pertinent clinical information, including history, physical exam and plan: Yes Notes (Text): Patient seen, examined and case discussed with day-time resident. Patient reports mild headache and associated lightheadedness. Patient completed Brain MRI and echo. Echocardiogram pending report. Patient's Brain MRI showing mucosal thickening over the sinuses-->patient started on Augmentin 875 1 tab PO bid with probiotic. Blood pressure controlled. pending echocardiogram Assessment/Plan 1) Hypertensive Urgency * Blood pressure controlled * EKG - sinus rohini * CT head negative, see full report * CXR - negative, see full report * MRI brain (03/08/17): no acute intracranial abnormality, mild chronic microangiopathic changes and mild age related global parenchymal volume loss; mild mucosal thickening in the left posterio ethmoid air cells, mild circumferential mucosal thickening in the sphenoid sinus and frontal sinuses. * Cartoid doppler: negative * Patient is not orthostatic * f/u Echo * BNP: 167 * Continue home ASA 81mg PO daily, Lisinopril 20mg PO qdaily, Lipitor 10mg PO qdaily * TSH:6.23, T4: 1.14 2) Headache * CT head w/o contrast - negative * ekg sinus rohini 50 bpm * prior admission 08/2016 - similar complaints, diag. w/ postural hypotension. * Orthostatics Q8 * Neuro consult, Dr. Carter, f/u recs * Tylenol 650mg PO Q6H, PRN headache * RPR: nonreactive 3) Sinusitis * MRI brain (03/08/17): no acute intracranial abnormality, mild chronic microangiopathic changes and mild age related global parenchymal volume loss; mild mucosal thickening in the left posterio ethmoid air cells, mild circumferential mucosal thickening in the sphenoid sinus and frontal sinuses. * Augmentin 875-125 mg PO 1 tab PO BID * Florastor 250mg PO BID 4) Impaired glucose tolerance * a1c: 6.2 * will need follow-up in one year to avoid overt diabetes * recommend diet and exercise modifications 5) Hypercholesterolema * Continue home Lipitor 10mg PO qd -> Crestor 5mg PO HS (lipitor not available on hospital formulary( * lipid panel: Triglycerides:105, Cholesterol: 195, LDL: 145 HDL:49 6) Hx of Vertigo * untreated, never followed up * Antivert 12.5mg PO Q12H * Neuro consult, Dr. Carter, help appreciated 7) Prophylaxis * SCD C/I * heart healthy diet * Pepcid 20mg PO BID * Hep 5000 SC q8H * PT eval
[2017-03-09 00:10] VITALS: O2SAT 98
[2017-03-09] MEDS: Amoxicillin-Clav 875-125 mg Tab PO SCH ×2 (01:03→11:52)
[2017-03-09 07:45] LABS: BASO # 0.1 K/uL (0.0-0.2); EOS # 0.2 K/uL (0.0-0.7); EOS % 4.5 % (0.0-4.0); HEMATOCRIT 38.9 % (34.0-47.0); LYMPH # 1.9 K/uL (1.0-4.3); LYMPH % 36.3 % (20.0-40.0); MEAN CORPUSCULAR HEMOGLOBIN 30.7 pg (27.0-31.0); MEAN CORPUSCULAR HGB CONC 34.5 g/dL (33.0-37.0); MEAN PLATELET VOLUME 9.3 fL (7.2-11.7); MONO # 0.3 K/uL (0.0-0.8); MONO % 6.3 % (0.0-10.0); NRBC % 0.1 % (0.0-2.0); RED CELL DISTRIBUTION WIDTH 13.1 % (11.5-14.5); WHITE BLOOD COUNT 5.2 K/uL (4.8-10.8)
[2017-03-09 08:10] VITALS: BP 121/68; PULSE 52; RESP 18; TEMP 98.3
[2017-03-09 08:18] LABS: CHLORIDE 100 mmol/L (98-107); POTASSIUM 4.2 mmol/L (3.6-5.2); SODIUM 141 mmol/L (132-148)
[2017-03-09 08:20] LABS: ALB/GLOB RATIO 1.1 (1.0-2.1); ALKALINE PHOSPHATASE 69 U/L (38-126); AST/SGOT 26 U/L (14-36); BILIRUBIN,TOTAL 0.7 mg/dL (0.2-1.3); CARBON DIOXIDE 28 mmol/L (22-30); GFR AFRICAN-AMERICAN > 60; TOTAL PROTEIN 7.2 g/dL (6.3-8.3)
[2017-03-09 08:21] LABS: ALT/SGPT 35 U/L (9-52); BLOOD UREA NITROGEN 15 mg/dL (7-17); CALCIUM 8.8 mg/dl (8.6-10.4); GLUCOSE,RANDOM 100 mg/dL (65-105); MAGNESIUM 1.8 mg/dL (1.6-2.3); PHOSPHOROUS 3.6 mg/dL (2.5-4.5)
[2017-03-09] MEDS: Saccharomyces Boulardi 250 mg Cap PO SCH (09:26)
--- NOTE | 2017-03-09 14:11 | CP.PCM.DIS ---
<LauraMarilin H - Last Filed: 03/09/17 14:04> Provider - Provider Date of Admission: 03/07/17 18:23 Attending physician: Americo Martínez MD Primary care physician: Referred to [facility] Consults: Neurology - Dr. Carter Time Spent in preparation of Discharge (in minutes): 40 Hospital Course - Lab Results Lab Results: Most Recent Lab Values WBC 5.2 K/uL (4.8-10.8) 03/09/17 07:33 RBC 4.37 Mil/uL (3.80-5.20) 03/09/17 07:33 Hgb 13.4 g/dL (11.0-16.0) 03/09/17 07:33 Hct 38.9 % (34.0-47.0) 03/09/17 07:33 MCV 89.0 fL (81.0-99.0) 03/09/17 07:33 MCH 30.7 pg (27.0-31.0) 03/09/17 07:33 MCHC 34.5 g/dL (33.0-37.0) 03/09/17 07:33 RDW 13.1 % (11.5-14.5) 03/09/17 07:33 Plt Count 173 K/uL (130-400) 03/09/17 07:33 MPV 9.3 fL (7.2-11.7) 03/09/17 07:33 Neut % (Auto) 51.9 % (50.0-75.0) 03/09/17 07:33 Lymph % (Auto) 36.3 % (20.0-40.0) 03/09/17 07:33 Chicot % (Auto) 6.3 % (0.0-10.0) 03/09/17 07:33 Eos % (Auto) 4.5 % (0.0-4.0) H 03/09/17 07:33 Baso % (Auto) 1.0 % (0.0-2.0) 03/09/17 07:33 Neut # 2.7 K/uL (1.8-7.0) 03/09/17 07:33 Lymph # 1.9 K/uL (1.0-4.3) 03/09/17 07:33 Chicot # 0.3 K/uL (0.0-0.8) 03/09/17 07:33 Eos # 0.2 K/uL (0.0-0.7) 03/09/17 07:33 Baso # 0.1 K/uL (0.0-0.2) 03/09/17 07:33 ESR 5 mm/hr (0-20) 03/08/17 06:44 PT 11.6 SECONDS (9.7-12.2) 03/07/17 17:20 INR 1.0 03/07/17 17:20 APTT 28 SECONDS (21-34) 03/08/17 06:44 Sodium 141 mmol/L (132-148) 03/09/17 07:33 Potassium 4.2 mmol/L (3.6-5.2) 03/09/17 07:33 Chloride 100 mmol/L (98-107) 03/09/17 07:33 Carbon Dioxide 28 mmol/L (22-30) 03/09/17 07:33 Anion Gap 18 (10-20) 03/09/17 07:33 BUN 15 mg/dL (7-17) 03/09/17 07:33 Creatinine 0.7 MG/DL (0.7-1.2) 03/09/17 07:33 Est GFR ( Amer) > 60 03/09/17 07:33 Est GFR (Non-Af Amer) > 60 03/09/17 07:33 POC Glucose (mg/dL) 105 mg/dL (65-110) 03/09/17 11:20 Random Glucose 100 mg/dL (65-105) 03/09/17 07:33 Hemoglobin A1c 6.1 % (4.2-6.5) 03/08/17 06:44 Calcium 8.8 mg/dl (8.6-10.4) 03/09/17 07:33 Phosphorus 3.6 mg/dL (2.5-4.5) 03/09/17 07:33 Magnesium 1.8 mg/dL (1.6-2.3) 03/09/17 07:33 Total Bilirubin 0.7 mg/dL (0.2-1.3) 03/09/17 07:33 AST 26 U/L (14-36) 03/09/17 07:33 ALT 35 U/L (9-52) 03/09/17 07:33 Alkaline Phosphatase 69 U/L (38-126) 03/09/17 07:33 Troponin I < 0.0120 ng/mL (0.00-0.120) 03/07/17 17:20 C-React Prot High Sens 1.36 mg/L (1.00-3.00) 03/08/17 06:40 NT-Pro-B Natriuret Pep 167 pg/mL (0-900) 03/08/17 06:40 Total Protein 7.2 g/dL (6.3-8.3) 03/09/17 07:33 Albumin 3.8 g/dL (3.5-5.0) 03/09/17 07:33 Globulin 3.4 gm/dL (2.2-3.9) 03/09/17 07:33 Albumin/Globulin Ratio 1.1 (1.0-2.1) 03/09/17 07:33 Triglycerides 105 mg/dL (0-149) 03/08/17 06:40 Cholesterol 195 mg/dL (0-199) 03/08/17 06:40 LDL Cholesterol Direct 145 mg/dL (0-129) H 03/08/17 06:40 HDL Cholesterol 49 mg/dL (30-70) 03/08/17 06:40 Free T4 1.14 ng/dL (0.78-2.19) 03/08/17 06:44 TSH 3rd Generation 6.37 mIU/L (0.46-4.68) H 03/08/17 06:40 RPR Nonreactive (NONREACTIVE) 03/08/17 06:40 Blood Type B POSITIVE 03/07/17 17:20 Antibody Screen Negative 03/07/17 17:20 - Hospital Course Hospital Course: On admission: This 66 y/o female with PMHx HTN, Hypercholesterolemia, Kidney Stones, Vertigo - was sent to the emergency department from the clinic due to HTN, complaints of Headache x1wk and Blurry vision x1 month. She went to the clinic to have these symptoms addressed, and admits to overall poor followup with her physician. She describes the headache as occipital in nature, intermittent, lasting for several hours per day, and is not associated with positioning. She also admits to associated light headedness for the past week. She admits to blurry vision for the past month, and describes it as a "thin layer" covering both eyes and causing her vision to be less clear. She has had floaters for many years, and reports that they have not increased or changed significantly. She also wears eye glasses for distance, and does not feel her blurry vision is related to her prescription. Upon further questioning, patient also complains of chest pain on exertion for the past year, especially when walking more than 3 blocks or walking up 3 flights of stairs to her apartment. She does not sleep with any pillows at night and does not get SOB while laying flat. She does c/o mild leg/arm swelling, present at the end of a long day, most days of the week, with intermittent tingling of the L fingertips when the arm is swollen. Of note , patients dose of lisiopril was increased to 40 last month, however this made her feel light headed. She has reduced her dose to 20mg PO qd for the past 3 weeks, and has felt less lightheaded. Denies f/c, weakness, dizziness, chest pain, SOB, abdominal pain, n/v, d/c, recent travel, numbness, tingling, or any additional acute complaints. Hospital Course: Patient worked up for HTN urgency, headache and sinusitis. Blood pressure was controlled with lisinopril 20mg PO daily. Patient had an EKG showing sinus rohini. CT of her head was negative. CXr was negative. Carotid dopplers were negative. Patient was not orthostatic. ECHO report needs to be followed up outpatient. Patient also placed on ASA and lipitor for elevated LDL at 145. Patient's HgbA1C found to be 6.2. Patient counselled on diet and exercise. HgbA1C will need to be rechecked in 3-6 months. For patient's headache, Head CT and Brain MRI were done. Head CT was negative. Brain MRI on 03/08/17 showed no acute intracranial abnormality, mild chronic microangiopathic changes and mild age related global parenchymal volume loss; mild mucosal thickening in the left posterio ethmoid air cells, mild circumferential mucosal thickening in the sphenoid sinus and frontal sinuses. ( please see full report in [facility]) Neurology was consulted - help appreciated. RPR was negative. Tylenol helped pain. For the sinusitis, patient was started on Augmentin BID and Florastor BID. Patient has a history of vertigo. She was not taking her antivert but she was restarted on it here and given a script for it as well. Patient denied any problems walking this morning. Patient says she has not felt dizzy in 24 hours. She says she can walk to the bathroom and back which is about 12 feet away without any dizziness. On Discharge: Patient to be discharged home per Dr. Jossue Sumner. Patient should take medications as directed below. Patient also given script for outpatient physical therapy. Patient should make an appointment and follow up in the [facility] within one week. There, she should follow up her ECHO report, get an ophthalmology consult and get an ENT consult if symptoms of sinusitis continue after 5 more days of Augmentin. Patient should return to ED immediately if symptoms return or worsen. Medications: Aspirin 81mg by mouth daily #30 Lisinopril 20mg by mouth daily #30 Simvastatin 20mg by mouth daily #30 Augmentin 875-125mg by mouth every 12 hours for 5 more days #10 take with yogurt Meclizine 12.5mg by mouth every 12 hours #60 Discharge Exam - Head Exam Head Exam: ATRAUMATIC, NORMAL INSPECTION, NORMOCEPHALIC - Eye Exam Eye Exam: EOMI - ENT Exam ENT Exam: Mucous Membranes Moist - Respiratory Exam Respiratory Exam: Clear to PA & Lateral, NORMAL BREATHING PATTERN. absent: Rales, Wheezes, Respiratory Distress - Cardiovascular Exam Cardiovascular Exam: REGULAR RHYTHM, +S1, +S2, Systolic Murmur. absent: Gallop , Rubs - GI/Abdominal Exam GI & Abdominal Exam: Normal Bowel Sounds, Soft. absent: Tenderness - Extremities Exam Extremities exam: normal capillary refill, pedal pulses present - Neurological Exam Neurological exam: Alert, Oriented x3 - Psychiatric Exam Psychiatric exam: Normal Affect, Normal Mood - Skin Skin Exam: Normal Color, Warm Discharge Plan - Discharge Medications Prescriptions: RX: Amoxicillin/Clavulanate [Augmentin 875 MG-125 MG Tab] 1 tab PO Q12H #10 tab RX: Aspirin [Ecotrin] 81 mg PO DAILY #30 RX: Lisinopril [Zestril] 20 mg PO DAILY #30 tab RX: Meclizine [Antivert] 12.5 mg PO Q12H #60 tab RX: Simvastatin 20 mg PO DAILY #30 tablet - Follow Up Plan Condition: STABLE Disposition: HOME/ ROUTINE Instructions: Amoxicillin/Clavulanate Potassium (By mouth), Acute Headache (DC) , Hypertension (DC), Hypertension (GEN) Additional Instructions: Patient to be discharged home per Dr. Jossue Sumner. Patient should take medications as directed below. Patient also given script for outpatient physical therapy. Patient should make an appointment and follow up in the [facility] within one week. There, she should follow up her ECHO report, get an ophthalmology consult and get an ENT consult if symptoms of sinusitis continue after 5 more days of Augmentin. Patient should return to ED immediately if symptoms return or worsen. Medications: Aspirin 81mg by mouth daily #30 Lisinopril 20mg by mouth daily #30 Simvastatin 20mg by mouth daily #30 Augmentin 875-125mg by mouth every 12 hours for 5 more days #10 take with yogurt Meclizine 12.5mg by mouth every 12 hours #60 Referrals: [facility] [Outside] Javan Carter MD [Staff Provider] - <Marija Sumner V - Last Filed: 03/09/17 19:24> Provider - Provider Date of Admission: 03/07/17 18:23 Attending physician: Americo Martínez MD Hospital Course - Lab Results Lab Results: Most Recent Lab Values WBC 5.2 K/uL (4.8-10.8) 03/09/17 07:33 RBC 4.37 Mil/uL (3.80-5.20) 03/09/17 07:33 Hgb 13.4 g/dL (11.0-16.0) 03/09/17 07:33 Hct 38.9 % (34.0-47.0) 03/09/17 07:33 MCV 89.0 fL (81.0-99.0) 03/09/17 07:33 MCH 30.7 pg (27.0-31.0) 03/09/17 07:33 MCHC 34.5 g/dL (33.0-37.0) 03/09/17 07:33 RDW 13.1 % (11.5-14.5) 03/09/17 07:33 Plt Count 173 K/uL (130-400) 03/09/17 07:33 MPV 9.3 fL (7.2-11.7) 03/09/17 07:33 Neut % (Auto) 51.9 % (50.0-75.0) 03/09/17 07:33 Lymph % (Auto) 36.3 % (20.0-40.0) 03/09/17 07:33 Chicot % (Auto) 6.3 % (0.0-10.0) 03/09/17 07:33 Eos % (Auto) 4.5 % (0.0-4.0) H 03/09/17 07:33 Baso % (Auto) 1.0 % (0.0-2.0) 03/09/17 07:33 Neut # 2.7 K/uL (1.8-7.0) 03/09/17 07:33 Lymph # 1.9 K/uL (1.0-4.3) 03/09/17 07:33 Chicot # 0.3 K/uL (0.0-0.8) 03/09/17 07:33 Eos # 0.2 K/uL (0.0-0.7) 03/09/17 07:33 Baso # 0.1 K/uL (0.0-0.2) 03/09/17 07:33 ESR 5 mm/hr (0-20) 03/08/17 06:44 PT 11.6 SECONDS (9.7-12.2) 03/07/17 17:20 INR 1.0 03/07/17 17:20 APTT 28 SECONDS (21-34) 03/08/17 06:44 Sodium 141 mmol/L (132-148) 03/09/17 07:33 Potassium 4.2 mmol/L (3.6-5.2) 03/09/17 07:33 Chloride 100 mmol/L (98-107) 03/09/17 07:33 Carbon Dioxide 28 mmol/L (22-30) 03/09/17 07:33 Anion Gap 18 (10-20) 03/09/17 07:33 BUN 15 mg/dL (7-17) 03/09/17 07:33 Creatinine 0.7 MG/DL (0.7-1.2) 03/09/17 07:33 Est GFR ( Amer) > 60 03/09/17 07:33 Est GFR (Non-Af Amer) > 60 03/09/17 07:33 POC Glucose (mg/dL) 105 mg/dL (65-110) 03/09/17 11:20 Random Glucose 100 mg/dL (65-105) 03/09/17 07:33 Hemoglobin A1c 6.1 % (4.2-6.5) 03/08/17 06:44 Calcium 8.8 mg/dl (8.6-10.4) 03/09/17 07:33 Phosphorus 3.6 mg/dL (2.5-4.5) 03/09/17 07:33 Magnesium 1.8 mg/dL (1.6-2.3) 03/09/17 07:33 Total Bilirubin 0.7 mg/dL (0.2-1.3) 03/09/17 07:33 AST 26 U/L (14-36) 03/09/17 07:33 ALT 35 U/L (9-52) 03/09/17 07:33 Alkaline Phosphatase 69 U/L (38-126) 03/09/17 07:33 Troponin I < 0.0120 ng/mL (0.00-0.120) 03/07/17 17:20 C-React Prot High Sens 1.36 mg/L (1.00-3.00) 03/08/17 06:40 NT-Pro-B Natriuret Pep 167 pg/mL (0-900) 03/08/17 06:40 Total Protein 7.2 g/dL (6.3-8.3) 03/09/17 07:33 Albumin 3.8 g/dL (3.5-5.0) 03/09/17 07:33 Globulin 3.4 gm/dL (2.2-3.9) 03/09/17 07:33 Albumin/Globulin Ratio 1.1 (1.0-2.1) 03/09/17 07:33 Triglycerides 105 mg/dL (0-149) 03/08/17 06:40 Cholesterol 195 mg/dL (0-199) 03/08/17 06:40 LDL Cholesterol Direct 145 mg/dL (0-129) H 03/08/17 06:40 HDL Cholesterol 49 mg/dL (30-70) 03/08/17 06:40 Free T4 1.14 ng/dL (0.78-2.19) 03/08/17 06:44 TSH 3rd Generation 6.37 mIU/L (0.46-4.68) H 03/08/17 06:40 RPR Nonreactive (NONREACTIVE) 03/08/17 06:40 Blood Type B POSITIVE 03/07/17 17:20 Antibody Screen Negative 03/07/17 17:20 Attending/Attestation - Attestation I have personally seen and examined this patient.: Yes I have fully participated in the care of the patient.: Yes I have reviewed all pertinent clinical information, including history, physical exam and plan: Yes Notes (Text): Patient seen, examined and case discussed with day-time resident. Patient denies acute complaints today. Patient reports she is able to tolerate walking to the bathroom without dizziness. Patient to continue Augmentin 875-125 1 tab PO BID for 5 days more to cover for sinusitis. patient advised to follow-up with opthalamology and ENT as outpatient. Patient to follow-up Echocardiogram for report which is not available at this. Discussed discharge order and discharge instructions with day-time resident. Medications reconciled with resident. Upon discharge: Patient also given script for outpatient physical therapy. Patient should make an appointment and follow up in the [facility] within one week. There, she should follow up her ECHO report and advised for referral for ophthalmology consult and ENT consult; if symptoms of sinusitis continue after 5 more days of Augmentin. Patient should return to ED immediately if symptoms return or worsen. Medications: Aspirin 81mg by mouth daily #30/0 refills Lisinopril 20mg by mouth daily #30/0 refills Simvastatin 20mg by mouth qHS #30/0 refills Augmentin 875-125mg by mouth every 12 hours for 5 more days #10 take with yogurt to complete 7 day course for sinusitis Meclizine 12.5mg by mouth every 12 hours #60/no refills This is a summary of patient's hospitalization. Please see EMR for further details. Assessment/Plan 1) Hypertensive Urgency-->stable with medications * Blood pressure controlled * EKG - sinus rohini * CT head negative, see full report * CXR - negative, see full report * MRI brain (03/08/17): no acute intracranial abnormality, mild chronic microangiopathic changes and mild age related global parenchymal volume loss; mild mucosal thickening in the left posterio ethmoid air cells, mild circumferential mucosal thickening in the sphenoid sinus and frontal sinuses. * Cartoid doppler: negative * Patient is not orthostatic * f/u Echo=>will need to follow-up official report as outpatient * BNP: 167 * Continue home ASA 81mg PO daily, Lisinopril 20mg PO qdaily, Lipitor 10mg PO qdaily * TSH:6.23, T4: 1.14 2) Headache-->resolved * CT head w/o contrast - negative * ekg sinus rohini 50 bpm * prior admission 08/2016 - similar complaints, diag. w/ postural hypotension; tolerates ambulation without dizziness * Orthostatics Q8-->patient is not orthostatic * Neuro consult, Dr. Carter, f/u recs * Tylenol 650mg PO Q6H, PRN headache * RPR: nonreactive 3) Sinusitis * MRI brain (03/08/17): no acute intracranial abnormality, mild chronic microangiopathic changes and mild age related global parenchymal volume loss; mild mucosal thickening in the left posterio ethmoid air cells, mild circumferential mucosal thickening in the sphenoid sinus and frontal sinuses. * Discharge on Augmentin 875-125 mg PO 1 tab PO BID (10 pills/0 refills) to complete 7 days * Florastor 250mg PO BID 4) Impaired glucose tolerance * a1c: 6.2 * will need follow-up in one year to avoid overt diabetes * recommend diet and exercise modifications 5) Hypercholesterolema * Continue home Lipitor 10mg PO qd -> Crestor 5mg PO HS (lipitor not available on hospital formulary( * lipid panel: Triglycerides:105, Cholesterol: 195, LDL: 145 HDL:49 6) Hx of Vertigo * untreated, never followed up * Discharge with Antivert 12.5mg PO Q12H * Neuro consult, Dr. Carter, help appreciated 7) Prophylaxis * SCD C/I * heart healthy diet * Pepcid 20mg PO BID * Hep 5000 SC q8H * PT eval
--- NOTE | 2017-03-18 08:42 | CARD ---
APPROVED REPORT EXAM: Two-dimensional and M-mode echocardiogram with Doppler and color Doppler. Other Information Quality : GoodRhythm : NSR INDICATION Dyspnea R/O CVA RISK FACTORS Hypertension Hyperlipidemia 2D DIMENSIONS IVSd1.2 (0.7-1.1cm)LVDd4.0 (3.9-5.9cm) LVOT Diameter1.5 (1.8-2.4cm)PWd1.1 (0.7-1.1cm) IVSs1.4 (0.8-1.2cm)LVDs2.8 (2.5-4.0cm) FS (%) 29.8 %PWs1.5 (0.8-1.2cm) LVEF (%)57.5 (>50%) M-Mode DIMENSIONS Left Atrium (MM)4.55 (2.5-4.0cm)Aortic Root2.98 (2.2-3.7cm) Aortic Cusp Exc.1.74 (1.5-2.0cm) Aortic Valve AoV Peak Ghtxndht813.3cm/Gerardo Peak GR.11mmHgLVOT Peak Vscfhhcu913.8cm/s HOLGER (VMAX)1.29cm2 Mitral Valve MV E [place]19.3cm/sMV A Mhuuwcyh21.0cm/sE/A ratio1.0 TDI E/Lateral E'0.0E/Medial E'0.0 Pulmonary Valve PV Peak Ydgjutvn167.6cm/sPV Peak Grad.5mmHg Tricuspid Valve TR Peak Nmazslft587bz/sTR Peak Gr.90scJkBJBM85ieXp LEFT VENTRICLE The left ventricle is normal size. There is normal left ventricular wall thickness. The left ventricular function is normal. The left ventricular ejection fraction is within the normal range. There is normal LV segmental wall motion. Transmitral Doppler flow pattern is Grade I-abnormal relaxation pattern. No left ventricle thrombus noted on this study. RIGHT VENTRICLE The right ventricle is normal size. There is normal right ventricular wall thickness. The right ventricular systolic function is normal. ATRIA The left atrium is mildly dilated. The right atrium size is normal. The interatrial septum is intact with no evidence for an atrial septal defect. AORTIC VALVE The aortic valve is mildly sclerotic. The aortic valve is trileaflet. No aortic regurgitation is present. There is no aortic valvular stenosis. There is no aortic valvular vegetation. MITRAL VALVE The mitral valve is normal in structure. There is no evidence of mitral valve prolapse. There is no mitral valve stenosis. Mitral regurgitation is trace. TRICUSPID VALVE The tricuspid valve is normal in structure. There is mild tricuspid regurgitation. There is no tricuspid valve prolapse or vegetation. There is no tricuspid valve stenosis. PULMONIC VALVE The pulmonary valve is normal in structure. There is mild pulmonic valvular regurgitation. There is no pulmonic valvular stenosis. GREAT VESSELS The aortic root is normal in size. The ascending aorta is normal in size. The IVC is normal in size and collapses >50% with inspiration. PERICARDIAL EFFUSION There is no pericardial effusion. There is no pleural effusion. <Conclusion> The left ventricular function is normal. Transmitral Doppler flow pattern is Grade I-abnormal relaxation pattern. The left atrium is mildly dilated. The aortic valve is mildly sclerotic. Mitral regurgitation is trace. There is mild tricuspid regurgitation.
--- NOTE | 2017-03-18 09:05 | CARD ---
APPROVED REPORT EKG Measurement Heart [id number] <Conclusion> Sinus bradycardia Otherwise normal ECG
== END 2017-03-09 14:30 | disposition home or self-care (01) | DRG 134 ==
LOC: C.ER 16:32 → C.9E 18:23 → C.6T 20:18
PROVIDERS: ADMIT Family Medicine; ATTEND Family Medicine
DX: I16.0 Hypertensive urgency (principal); J32.9 Chronic sinusitis, unspecified; T46.4X6A Underdosing of angiotensin-converting-enzyme inhibitors, initial encounter; Z91.128 Patient's intentional underdosing of medication regimen for other reason; R42 Dizziness and giddiness; R73.02 Impaired glucose tolerance (oral); E78.00 Pure hypercholesterolemia, unspecified; R51 Headache; Z79.82 Long term (current) use of aspirin; Z79.899 Other long term (current) drug therapy

== ENCOUNTER 2017-05-30 08:55 | Emergency (ER) | payer OTHER ==
[2017-05-30 08:56] VITALS: BMI 32.3
--- NOTE | 2017-05-30 10:09 | C.PDOC ---
History Of Present Illness 66 year old female presents to the ED with complaints of right knee pain after a trip and fall yesterday. Patient reports she landed on her right knee and is able to ambulate with a slight limp. She denies LOC, head injury, or symptoms prior to the fall. Chief Complaint (Nursing): Lower Extremity Problem/Injury History Per: Patient History/Exam Limitations: no limitations Onset/Duration Of Symptoms: Hrs Current Symptoms Are (Timing): Still Present Recent travel outside of the [place]: No - Knee Description Of Injury: Fell (tripped and fell, landed on right knee ) Past Medical History Reviewed: Historical Data, Nursing Documentation, Vital Signs Vital Signs: Last Vital Signs Temp 97.6 F 05/30/17 10:36 Pulse 67 05/30/17 10:36 Resp 18 05/30/17 10:36 BP 138/80 05/30/17 10:36 Pulse Ox 100 05/30/17 13:44 - Medical History PMH: HTN, Hypercholesterolemia, Kidney Stones, Chronic Kidney Disease (kidney stones) Surgical History: Appendectomy - [facility] Procedures INJECT/INFUSE NEC (08/22/14) INTRODUCTION OF SERUM/TOX/VACCINE INTO MUSCLE, PERC APPROACH (09/04/16) UMBIL HERNIA REPAIR NEC (07/21/98) Family History: States: Hypertension - Social History Hx Alcohol Use: No Hx Substance Use: No - Immunization History Hx Tetanus Toxoid Vaccination: Yes Hx Influenza Vaccination: Yes Hx Pneumococcal Vaccination: Yes Review Of Systems Musculoskeletal: Positive for: Leg Pain (right knee pain ) Neurological: Negative for: Weakness, Numbness Physical Exam - Physical Exam Appears: Non-toxic, No Acute Distress Skin: Warm, Dry Head: Atraumatic, Normacephalic Extremity: No Normal ROM (slightly decreased ROM, secondary to pain ), Tenderness (diffuse tenderness to right patella ), No Calf Tenderness, Capillary Refill (good capillary refill, less than two seconds ), No Deformity, No Swelling, Other (Abrasion to right knee. No signs of infection. ) Neurological/Psych: Oriented x3, Normal Motor, Normal Sensation Gait: Steady ED Course And Treatment O2 Sat by Pulse Oximetry: 100 (RA) - Other Rad Right Knee X-Ray X-Ray: Viewed By Me, Read By Radiologist Interpretation: FINDINGS: BONES: Normal. No fracture. JOINTS: Normal. No osteoarthritis. JOINT EFFUSION: Suspect trace suprapatellar joint effusion. OTHER FINDINGS: None. IMPRESSION: No evidence of acute displaced fracture nor dislocation. Suspect trace suprapatellar joint effusion. Progress Note: Right knee X-Ray was ordered and patient was given Tylenol. Disposition - Disposition Referrals: Tomasz Epstein Johnathon, [Non-Staff] - Disposition: HOME/ ROUTINE Disposition Time: 10:25 Condition: GOOD Additional Instructions: Thank you for letting us take care of you today. Your provider was Dr. Fajardo. You were treated for a knee contusion. The emergency medical care you received today was directed at your acute symptoms. If you were prescribed any medication, please fill it and take as directed. It may take several days for your symptoms to resolve. Return to the Emergency Department if your symptoms worsen, do not improve, or if you have any other problems. Please contact your doctor or call one of the physicians/clinics you have been referred to that are listed on the Patient Visit Information form that is included in your discharge packet. Bring any paperwork you were given at discharge with you along with any medications you are taking to your follow up visit. Our treatment cannot replace ongoing medical care by a primary care provider (PCP) outside of the emergency department. Thank you for allowing the [facility] team to be part of your care today. Follow up with your doctor if you have any concerns. [place] por permitirnos cuidar de usted braden. Hale proveedor fue el Dr. Fajardo. Te trataron por mena contusin de rodilla. La atencin mdica de emergencia que recibi hoy estaba dirigida a rubi sntomas agudos. Si le recetaron algn medicamento, llnelo y tome dami se le indic. Puede llevar varios dasilva resolver rubi sntomas. Regrese al Departamento de Emergencias si rubi sntomas empeoran, no mejoran o si tiene algn otro problema. Comunquese con hale mdico o llame a shonda de los mdicos / clnicas a los que fay sido derivado que figuran en el formulario de informacin de visita del paciente que se incluye en hale paqu[place] de kay. Lleve consigo cualquier papeleo que reciba al kay junto con cualquier medicamento que est tomando en hale visita de seguimiento. Nuestro tratamiento no puede reemplazar la atencin m dica continua de un proveedor de atencin primaria (PCP) fuera del departamento de emergencias. [place]ie por permitir que el equipo de [facility] sea parte de hale atencin hoy. Si tiene alguna inquietud, hable con hale mdico. Instructions: Knee Pain (ED), RICE Therapy (ED) Forms: Gen Discharge Inst Syriac Print Language: HAITIAN - Clinical Impression Clinical Impression: Knee contusion - Scribe Statement The provider has reviewed the documentation as recorded by the Scribe Beba Hill All medical record entries made by the Scribe were at my direction and personally dictated by me. I have reviewed the chart and agree that the record accurately reflects my personal performance of the history, physical exam, medical decision making, and the department course for this patient. I have also personally directed, reviewed, and agree with the discharge instructions and disposition.
--- NOTE | 2017-05-30 10:18 | RAD ---
PROCEDURE: Right Knee Radiographs. HISTORY: r/o fx COMPARISON: None. FINDINGS: BONES: Normal. No fracture. JOINTS: Normal. No osteoarthritis. JOINT EFFUSION: Suspect trace suprapatellar joint effusion OTHER FINDINGS: None. IMPRESSION: No evidence of acute displaced fracture nor dislocation. Suspect trace suprapatellar joint effusion.
[2017-05-30 10:38] VITALS: BP 138/80; PULSE 67; RESP 18; TEMP 97.6
[2017-05-30 10:59] VITALS: O2SAT 100
== END 2017-05-30 10:37 | disposition home or self-care (01) ==
LOC: C.ER 08:55
DX: S80.01XA Contusion of right knee, initial encounter (principal); W01.0XXA Fall on same level from slipping, tripping and stumbling without subsequent striking against object, initial encounter; E78.00 Pure hypercholesterolemia, unspecified; I10 Essential (primary) hypertension

== ENCOUNTER 2017-06-03 06:31 | Day surgery (SDC) | payer OTHER ==
[2017-06-03] MEDS ORDERED: Propofol 10 mg/ml Inj (20 ML) ONE (07:45)
[2017-06-03] MEDS ORDERED: Lactated Ringer's 1,000 ML IV ONE ×2 (07:49)
[2017-06-03] MEDS: cefOXitin IV 2 gm in Dextrose 2 GM/50 ML BAG IVPB ONE ×2 (07:50→08:10)
--- NOTE | 2017-06-03 08:46 | PCM.SURG1 ---
Surgeon's Initial Post Op Note - Surgeon's Notes Surgeon: Dr Austin Master Of Ceremonies: Dr Mabel Guadalupe, Dr Raegan Javed ( [facility] ) Type of Anesthesia: General Endo Anesthesia Administered By: Dr Sloan Pre-Operative Diagnosis: Postmenopausal Bleeding/ endometrial thickening Operative Findings: Normal sized anteverted uterus, hypertrophic cervical canal , atrophic endometrial cavity. IV Fluids- 500mls. EBL-10mls. UO- 40mls. Post-Operative Diagnosis: Same as Preop Operation Performed: D and C Hysteroscopy, Specimen/Specimens Removed: Endometrial and endocervical tissue for histopathology. Estimated Blood Loss: EBL {In ML}: 10 Post-Op Condition: Good Date of Surgery/Procedure: 06/03/17 Time of Surgery/Procedure: 08:47
[2017-06-03 10:52] VITALS: BP 120/74; PULSE 66; RESP 18; TEMP 97; O2SAT 98
--- NOTE | 2017-06-03 14:18 | OP ---
PROCEDURE DATE: 06/03/2017 PREOPERATIVE DIAGNOSES: Postmenopausal bleeding and endometrial thickening. POSTOPERATIVE DIAGNOSES: Postmenopausal bleeding and endometrial thickening. PROCEDURE DONE: Dilation and curettage hysteroscopy performed on 06/03/2017. SURGEON: Luis Austin MD. ASSISTANTS: . TYPE OF ANESTHESIA: General endotracheal. ANESTHESIA ADMINISTERED BY: Antolin Sloan MD. OPERATIVE FINDINGS: Normal-sized anteverted uterus with hypertrophic cervical, endocervical tissue at hysteroscopy. The endometrial cavity bunch appeared atrophic. There have been no other abnormalities noted. IV FLUID INTAKE: 500 mL. ESTIMATED BLOOD LOSS: About 10 mL. URINE OUTPUT: About 40 mL. COMPLICATIONS: None. SPECIMENS: Obtained are endometrial and endocervical tissue for histopathology. DESCRIPTION OF PROCEDURE: After obtaining informed consent, the patient was sent to the OR with IV running. The patient was placed in a supine position on the OR table and after adequate general anesthesia, was repositioned in the dorsal lithotomy position using the David stirrups. The patient was then prepped and draped in the usual sterile fashion. The urinary bladder was drained using a straight cath with output of about 40 mL of clear urine. The posterior vaginal wall was depressed with a weighted speculum and the anterior wall was elevated with an L-shaped retractor to expose the cervix. The anterior lip of the cervix was held with a single-tooth tenaculum and the uterus was later sounded to a depth of about 7 cm. The cervical canal was dilated with Hegar dilator with dilatation of about 8 mm, after which the hysteroscope was introduced with the above findings noted. Endometrial and endocervical curettage was performed using a sharp curette and the tissues obtained were sent for pathological evaluation. Once the procedure had been completed, all instruments were taken out of the vagina after assuring hemostasis. The patient was repositioned in the supine position and was sent to the recovery room awake and in stable condition. All counts were correct x3. The patient tolerated the procedure well. Luis Austin MD
== END 2017-06-03 12:29 | disposition home or self-care (01) ==
LOC: C.SDS 06:31
PROVIDERS: ATTEND Obstetrics & Gynecology
DX: N84.0 Polyp of corpus uteri (principal); N95.0 Postmenopausal bleeding; R93.8 Abnormal findings on diagnostic imaging of other specified body structures
CPT/HCPCS: 58558; 88305; J0694; J2704; J3010; J7120

== ENCOUNTER 2017-07-18 17:39 | Observation (INO) | payer OTHER ==
[2017-07-18 17:40] VITALS: BMI 28.2
[2017-07-18] MEDS ORDERED: Morphine 4 MG/ML VIAL IV STA (19:40)
[2017-07-18 19:55] LABS: BASO # 0.1 K/uL (0.0-0.2); BASO % 0.6 % (0.0-2.0); EOS # 0.2 K/uL (0.0-0.7); EOS % 2.7 % (0.0-4.0); HEMATOCRIT 42.5 % (34.0-47.0); LYMPH # 2.3 K/uL (1.0-4.3); LYMPH % 26.7 % (20.0-40.0); MEAN CELL VOLUME 89.4 fL (81.0-99.0); MEAN CORPUSCULAR HEMOGLOBIN 30.5 pg (27.0-31.0); MEAN CORPUSCULAR HGB CONC 34.1 g/dL (33.0-37.0); MONO # 0.5 K/uL (0.0-0.8); MONO % 5.6 % (0.0-10.0); NRBC % 0.1 % (0.0-2.0); RED CELL DISTRIBUTION WIDTH 13.2 % (11.5-14.5); WHITE BLOOD COUNT 8.7 K/uL (4.8-10.8)
[2017-07-18 20:15] LABS: ALB/GLOB RATIO 1.3 (1.0-2.1); ALKALINE PHOSPHATASE 72 U/L (38-126); ALT/SGPT 38 U/L (9-52); AST/SGOT 25 U/L (14-36); BILIRUBIN,TOTAL 0.7 mg/dL (0.2-1.3); BLOOD UREA NITROGEN 14 mg/dL (7-17); CALCIUM 9.1 mg/dl (8.6-10.4); CARBON DIOXIDE 32 mmol/L (22-30); CHLORIDE 99 mmol/L (98-107); GFR AFRICAN-AMERICAN > 60; GLUCOSE,RANDOM 118 mg/dL (65-105); SODIUM 138 mmol/L (132-148); TOTAL PROTEIN 7.6 g/dL (6.3-8.3)
[2017-07-18] MEDS ORDERED: Acetaminophen-Codeine 300/30 mg Tab PO STA (20:24)
[2017-07-18] MEDS ORDERED: Acetaminophen-Codeine 300/30 mg Tab PO ONE (20:30)
--- NOTE | 2017-07-18 21:09 | C.PDOC ---
History Of Present Illness 66 y/o female reports to the ER for a work-related crush injury to her right hand. Patient states she had an X- ray at [facility] and the X ray was negative. She reports that she went to [employer] the following day for worker' s compensation. She had a repeat X-Ray and went back today for follow-up and saw her XR results which indicated small radiodensity at the dorsal aspect of the 4th proximal phalanx, questionable foreign body vs. density from a fracture. She states that she had numbness in all her fingers so she was sent to the ER for further evaluation. She denies any injuries and has no other complaints. Time Seen by Provider: 07/18/17 17:54 Chief Complaint (Nursing): Finger,Hand,&Wrist History Per: Patient History/Exam Limitations: no limitations Onset/Duration Of Symptoms: Days Current Symptoms Are (Timing): Still Present Past Medical History Reviewed: Historical Data, Nursing Documentation, Vital Signs Vital Signs: Last Vital Signs Temp 97.8 F 07/18/17 21:10 Pulse 66 07/18/17 21:10 Resp 18 07/18/17 21:10 BP 137/82 07/18/17 21:10 Pulse Ox 100 07/18/17 21:53 - Medical History PMH: Atrial Fibrillation (?), HTN, Hypercholesterolemia, Kidney Stones, Chronic Kidney Disease (kidney stones) Surgical History: Appendectomy - [facility] Procedures INJECT/INFUSE NEC (08/22/14) INTRODUCTION OF SERUM/TOX/VACCINE INTO MUSCLE, PERC APPROACH (09/04/16) UMBIL HERNIA REPAIR NEC (07/21/98) Family History: States: Hypertension - Social History Hx Alcohol Use: No Hx Substance Use: No - Immunization History Hx Tetanus Toxoid Vaccination: Yes Hx Influenza Vaccination: Yes Hx Pneumococcal Vaccination: Yes Review Of Systems Except As Marked, All Systems Reviewed And Found Negative. Constitutional: Negative for: Fever, Chills, Weakness Musculoskeletal: Negative for: Neck Pain, Back Pain, Leg Pain Skin: Negative for: Rash Neurological: Positive for: Numbness (numbness in all fingers in right hand). Negative for: Weakness Physical Exam - Physical Exam Appears: Well, Non-toxic, No Acute Distress Skin: Normal Color, Warm Head: Atraumatic, Normacephalic Oral Mucosa: Moist Neck: Supple Chest: Symmetrical Cardiovascular: Rhythm Regular Respiratory: Normal Breath Sounds Extremity: Normal ROM (FROM of all digits on right hand), Tenderness ( tenderness to the right fourth digit), Capillary Refill (normal), Swelling ( swelling to the right fourth digit, mild swelling to the right third digit), Other (area of ecchymosis at center of palm on right hand) Pulses: Left Radial: Normal, Right Radial: Normal Neurological/Psych: Oriented x3, Normal Speech, Normal Cognition, Normal Cranial Nerves, Normal Motor, Normal Sensation ED Course And Treatment - Laboratory Results Result Diagrams: 07/18/17 19:53 07/18/17 19:53 O2 Sat by Pulse Oximetry: 100 (RA ) Pulse Ox Interpretation: Normal Medical Decision Making Medical Decision Making: Impression: Crush Injury to right hand Plan: Percocet 1 tab PO Morphine: 2 mg IV Zofran: 4 mg IVP Labs Time: [address] Chance, orthopedist lean process deployment consultant, who recommends patient to be placed in in-patient observation and to have an MRI in the morning. Patient admitted under Dr. Wong. Disposition Counseled Patient/Family Regarding: Diagnosis (and plan for inpatient observation d/w the patient and she agrees with plan ) - Disposition Disposition: HOSPITALIZED Disposition Time: 20:30 Condition: STABLE - Clinical Impression Clinical Impression: Crushing injury of right hand, Paresthesias in right hand - PA / MATHEMATICS TECHNICIAN / Resident Statement MD/DO has reviewed & agrees with the documentation as recorded. - Scribe Statement The provider has reviewed the documentation as recorded by the Ana Spencer Provider Attestation: All medical record entries made by the Ana were at my direction and personally dictated by me. I have reviewed the chart and agree that the record accurately reflects my personal performance of the history, physical exam, medical decision making, and the department course for this patient. I have also personally directed, reviewed, and agree with the discharge instructions and disposition.
[2017-07-19 00:39] VITALS: RESP 20
[2017-07-19] MEDS ORDERED: Levothyroxine 50 MCG TAB PO SCH (06:30)
[2017-07-19 08:09] VITALS: O2SAT 96
[2017-07-19 08:17] LABS: CHOLESTEROL 190 mg/dL (0-199)
[2017-07-19 08:34] LABS: FREE T4 1.2 ng/dL (0.78-2.19)
[2017-07-19 08:48] LABS: THYROID STIMULATING HORMONE 3.64 mIU/L (0.46-4.68)
[2017-07-19] MEDS ORDERED: Ergocalciferol 50,000 Intl Units Cap PO SCH (10:00)
--- NOTE | 2017-07-19 10:01 | CP.PCM.HP ---
History of Present Illness - History of Present Illness History of Present Illness: pt has pain and swelind midle finger after injery at work has numness hang Present on Admission - Present on Admission Any Indicators Present on Admission: No Review of Systems - Review of Systems Systems not reviewed;Unavailable: Acuity of Condition - Constitutional Constitutional: As Per HPI - EENT Eyes: As Per HPI Ears: As Per HPI Nose/Mouth/Throat: As Per HPI - Breasts Breasts: As Per HPI - Cardiovascular Cardiovascular: As Per HPI - Respiratory Respiratory: As Per HPI - Gastrointestinal Gastrointestinal: As Per HPI - Genitourinary Genitourinary: As Per HPI - Reproductive: Female Reproductive:Female: As Per HPI - Menstruation Menstruation: As Per HPI - Musculoskeletal Musculoskeletal: Joint Swelling, Numbness - Integumentary Integumentary: As Per HPI - Neurological Neurological: Dizziness Additional comments: for few days get dizzy when gets up or move her head - Endocrine Endocrine: As Per HPI - Hematologic/Lymphatic Hematologic: As Per HPI Past Patient History - Infectious Disease Hx of Infectious Diseases: None - Tetanus Immunizations Tetanus Immunization: Unknown - Past Medical History & Family History Past Medical History?: Yes - Past Social History Smoking Status: Never Smoked - CARDIAC Hx Cardiac Disorders: Yes Hx Hypercholesterolemia: Yes Hx Hypertension: Yes - PULMONARY Hx Respiratory Disorders: No - NEUROLOGICAL Hx Neurological Disorder: No - HEENT Hx HEENT Problems: No - RENAL Hx Chronic Kidney Disease: Yes (kidney stones) Hx Kidney Stones: Yes - ENDOCRINE/METABOLIC Hx Endocrine Disorders: Yes Hx Hypothyroidism: Yes - HEMATOLOGICAL/ONCOLOGICAL Hx Blood Disorders: No - INTEGUMENTARY Hx Dermatological Problems: No - MUSCULOSKELETAL/RHEUMATOLOGICAL Hx Falls: No - GASTROINTESTINAL Hx Gastrointestinal Disorders: No - GENITOURINARY/GYNECOLOGICAL Hx Genitourinary Disorders: No - PSYCHIATRIC Hx Substance Use: No - SURGICAL HISTORY Hx Surgeries: Yes Hx Appendectomy: Yes - ANESTHESIA Hx Anesthesia: Yes Hx Anesthesia Reactions: No Hx Malignant Hyperthermia: No Has any member of the family had a problem w/ anesthesia?: No Meds Allergies/Adverse Reactions: Allergies Allergy/AdvReac Type Severity Reaction Status Date / Time ibuprofen Allergy Mild RASH Verified 06/16/17 17:53 Physical Exam - Constitutional Appears: Non-toxic - Head Exam Head Exam: NORMAL INSPECTION - Eye Exam Eye Exam: EOMI Pupil Exam: PERRL - ENT Exam ENT Exam: Mucous Membranes Moist - Neck Exam Neck exam: Positive for: Full Rom - Respiratory Exam Respiratory Exam: Clear to Auscultation Bilateral Results - Vital Signs Recent Vital Signs: Last Vital Signs Temp 98.4 F 07/19/17 08:08 Pulse 60 07/19/17 08:08 Resp 20 07/19/17 08:08 BP 116/72 07/19/17 08:08 Pulse Ox 96 07/19/17 08:08 - Labs Result Diagrams: 07/18/17 19:53 07/18/17 19:53 Labs: Laboratory Results - last 24 hr 07/18/17 07/18/17 07/19/17 19:53 19:53 07:46 WBC 8.7 D RBC 4.75 Hgb 14.5 Hct 42.5 MCV 89.4 MCH 30.5 MCHC 34.1 RDW 13.2 Plt Count 229 MPV 9.0 Neut % (Auto) 64.4 Lymph % (Auto) 26.7 [place] % (Auto) 5.6 Eos % (Auto) 2.7 Baso % (Auto) 0.6 Neut # 5.6 Lymph # 2.3 [place] # 0.5 Eos # 0.2 Baso # 0.1 Sodium 138 Potassium 4.0 Chloride 99 Carbon Dioxide 32 H Anion Gap 11 BUN 14 Creatinine 0.7 Est GFR ( Amer) > 60 Est GFR (Non-Af Amer) > 60 Random Glucose 118 H Calcium 9.1 Total Bilirubin 0.7 AST 25 ALT 38 Alkaline Phosphatase 72 Total Protein 7.6 Albumin 4.3 Globulin 3.4 Albumin/Globulin Ratio 1.3 Triglycerides 152 H Cholesterol 190 LDL Cholesterol Direct 103 HDL Cholesterol 61 Free T4 TSH 3rd Generation 07/19/17 07:46 WBC RBC Hgb Hct MCV MCH MCHC RDW Plt Count MPV Neut % (Auto) Lymph % (Auto) [place] % (Auto) Eos % (Auto) Baso % (Auto) Neut # Lymph # Stark # Eos # Baso # Sodium Potassium Chloride Carbon Dioxide Anion Gap BUN Creatinine Est GFR ( Amer) Est GFR (Non-Af Amer) Random Glucose Calcium Total Bilirubin AST ALT Alkaline Phosphatase Total Protein Albumin Globulin Albumin/Globulin Ratio Triglycerides Cholesterol LDL Cholesterol Direct HDL Cholesterol Free T4 1.20 TSH 3rd Generation 3.64 Assessment & Plan - Assessment and Plan (Free Text) Assessment: pain and numness ortho called xray neg await mri Plan: as per ortho transfer servise to routin servise - Date & Time Date: 07/19/17 Time: 10:07
--- NOTE | 2017-07-19 10:18 | CP.PCM.CON ---
History of Present Illness - History of Present Illness History of Present Illness: Orthopedic consultation Dr. Chance 66F complains of right hand numbness and tingling after crush injury. 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 States that she has feeling in all of her fingers, but her middle and ring finger feel tingly. Says the sides/front back all feel the same. Most of pain is in right finger. She denies tingling in small finger, a little tingling in index finger. No fever/chills. Pain is minimal if she isn't trying to move fingers. Review of Systems - Review of Systems All systems: reviewed and no additional remarkable complaints except - Constitutional Additional comments: no fever chills - Cardiovascular Additional comments: denies cp - Respiratory Additional comments: denies sob - Musculoskeletal Musculoskeletal: As Per HPI - Integumentary Additional comments: skin intact,, swelling - Neurological Neurological: As Per HPI - Hematologic/Lymphatic Hematologic: absent: As Per HPI, Easy Bleeding, Easy Bruising, Lymphadenopathy, Other Past Patient History - Infectious Disease Hx of Infectious Diseases: None - Tetanus Immunizations Tetanus Immunization: Unknown - Past Medical History & Family History Past Medical History?: Yes Past Family History: Reviewed and not pertinent - Past Social History Smoking Status: Never Smoked - CARDIAC Hx Cardiac Disorders: Yes Hx Hypercholesterolemia: Yes Hx Hypertension: Yes - PULMONARY Hx Respiratory Disorders: No - NEUROLOGICAL Hx Neurological Disorder: No - HEENT Hx HEENT Problems: No - RENAL Hx Chronic Kidney Disease: Yes (kidney stones) Hx Kidney Stones: Yes - ENDOCRINE/METABOLIC Hx Endocrine Disorders: Yes Hx Hypothyroidism: Yes - HEMATOLOGICAL/ONCOLOGICAL Hx Blood Disorders: No - INTEGUMENTARY Hx Dermatological Problems: No - MUSCULOSKELETAL/RHEUMATOLOGICAL Hx Falls: No - GASTROINTESTINAL Hx Gastrointestinal Disorders: No - GENITOURINARY/GYNECOLOGICAL Hx Genitourinary Disorders: No - PSYCHIATRIC Hx Substance Use: No - SURGICAL HISTORY Hx Surgeries: Yes Hx Appendectomy: Yes - ANESTHESIA Hx Anesthesia: Yes Hx Anesthesia Reactions: No Hx Malignant Hyperthermia: No Has any member of the family had a problem w/ anesthesia?: No Meds Allergies/Adverse Reactions: Allergies Allergy/AdvReac Type Severity Reaction Status Date / Time ibuprofen Allergy Mild RASH Verified 06/16/17 17:53 - Medications Medications: Current Medications Acetaminophen (Tylenol 325mg Tab) 650 mg PO Q6 PRN PRN Reason: Pain, Mild (1-3) Amitriptyline HCl (Elavil) 25 mg PO HS [facility] Aspirin (Ecotrin) 81 mg PO DAILY [facility] Last Admin: 07/19/17 09:53 Dose: 81 mg Ergocalciferol (Drisdol 50,000 Intl Units Cap) 1 cap PO QWK [facility] Last Admin: 07/19/17 09:53 Dose: 1 cap Famotidine (Pepcid) 20 mg PO BID [facility] Last Admin: 07/19/17 09:53 Dose: 20 mg Heparin Sodium (Porcine) (Heparin) 5,000 units SC Q12 [facility] Last Admin: 07/19/17 09:52 Dose: 5,000 units Hydrochlorothiazide (Microzide) 12.5 mg PO DAILY [facility] Last Admin: 07/19/17 09:53 Dose: 12.5 mg Levothyroxine Sodium (Synthroid) 50 mcg PO DAILY@0630 [facility] Last Admin: 07/19/17 05:40 Dose: 50 mcg Lisinopril (Zestril) 20 mg PO DAILY [facility] Last Admin: 07/19/17 09:53 Dose: 20 mg Physical Exam - Constitutional Appears: Well, No Acute Distress - Head Exam Head Exam: ATRAUMATIC - Neck Exam Neck exam: Positive for: Full Rom, Normal Inspection - Extremities Exam Additional comments: no laxity appreciated to PIP/DIP joints ring/long fineers - Expanded Upper Extremities Exam Right Elbow exam: full ROM Forearm Wrist exam: swelling (noted to ring and middle fingers. Patient admits to sensation, but says her entire middle and ring fingers are tingling. There is no difference over rad/ulnar/median nerve distrib, and no difference radial or ulnar side of finger. This does not correlate with any one nerve. Fingers warm, cap refill <2 secs to all fingers. Minmal swelling to hand. Non tender, compartments soft. Neg tinels over carpal tunnel. c/o pain trying to bend fingers.) Neuro motor exam: finger 2-5 abduction intact, thumb abduction, thumb IP flexion intact, thumb opposition intact, wrist extension intact Neurosensory exam: median nerve intact, radial nerve intact, ulnar nerve intact Vascular exam: radial pulse - Neurological Exam Neurological exam: Alert, Oriented x3 - Psychiatric Exam Psychiatric exam: Normal Affect, Normal Mood - Skin Skin Exam: Dry, Intact, Normal Color, Warm Results - Vital Signs Recent Vital Signs: Last Vital Signs Temp 98.4 F 07/19/17 08:08 Pulse 60 07/19/17 08:08 Resp 20 07/19/17 08:08 BP 116/72 07/19/17 08:08 Pulse Ox 96 07/19/17 08:08 - Labs Result Diagrams: 07/18/17 19:53 07/18/17 19:53 Labs: Laboratory Results - last 24 hr 07/18/17 07/18/17 07/19/17 19:53 19:53 07:46 WBC 8.7 D RBC 4.75 Hgb 14.5 Hct 42.5 MCV 89.4 MCH 30.5 MCHC 34.1 RDW 13.2 Plt Count 229 MPV 9.0 Neut % (Auto) 64.4 Lymph % (Auto) 26.7 [place] % (Auto) 5.6 Eos % (Auto) 2.7 Baso % (Auto) 0.6 Neut # 5.6 Lymph # 2.3 [place] # 0.5 Eos # 0.2 Baso # 0.1 Sodium 138 Potassium 4.0 Chloride 99 Carbon Dioxide 32 H Anion Gap 11 BUN 14 Creatinine 0.7 Est GFR ( Amer) > 60 Est GFR (Non-Af Amer) > 60 Random Glucose 118 H Calcium 9.1 Total Bilirubin 0.7 AST 25 ALT 38 Alkaline Phosphatase 72 Total Protein 7.6 Albumin 4.3 Globulin 3.4 Albumin/Globulin Ratio 1.3 Triglycerides 152 H Cholesterol 190 LDL Cholesterol Direct 103 HDL Cholesterol 61 Free T4 TSH 3rd Generation 07/19/17 07:46 WBC RBC Hgb Hct MCV MCH MCHC RDW Plt Count MPV Neut % (Auto) Lymph % (Auto) [place] % (Auto) Eos % (Auto) Baso % (Auto) Neut # Lymph # [place] # Eos # Baso # Sodium Potassium Chloride Carbon Dioxide Anion Gap BUN Creatinine Est GFR ( Amer) Est GFR (Non-Af Amer) Random Glucose Calcium Total Bilirubin AST ALT Alkaline Phosphatase Total Protein Albumin Globulin Albumin/Globulin Ratio Triglycerides Cholesterol LDL Cholesterol Direct HDL Cholesterol Free T4 1.20 TSH 3rd Generation 3.64 - Impressions Impression: Right hand 3 views: AP/lat/oblique Disagree with radiology reading. There is a small avulsion fracture noted off the PIP joint ulnarly, which seems to correlate to donor site on MRI. This is consistent with physical exam findings of pain and swelling at right PIP joint. No other fx/dislocation noted. Severe DJD at all DIP joints noted. Patient Name / ID : JAC Owens / [id number] Exam Date : 07/19/2017 09:32:35 ( Approved ) Study Comment : Sex / Age : F / 66Y Creator : Henry Samuel MD Dictator : Henry Samuel MD Supervisor Special Education : Chain Sales Representative : Henry Samuel MD Approver2 : Report Date : 07/19/2017 10:28:26 My Comment : PROCEDURE: Right Hand Radiographs. HISTORY: hand crush injury, attention ring finger COMPARISON: Not available FINDINGS: BONES: Normal. No fracture. JOINTS: Osteoarthritis DIP 2 through 5. Remaining joint spaces are preserved. Articular surfaces are preserved. SOFT TISSUES: Normal. OTHER FINDINGS: None. IMPRESSION: No acute fracture. Osteoarthritis DIP 2 through 5. Assessment & Plan (1) Closed fracture of proximal phalanx of right ring finger Assessment and Plan: small avulsion fracture noted volar splint intrinsic plus to rest long finger and hand as wel elevation, ice awaiting MRI reading for completeness f/u as outpatient, no ortho intervention indicated at this time, call for appointment within 1 week [phone] d/w Dr. Chance, agrees with above Status: Acute (2) Crushing injury of right hand Assessment and Plan: minimal swelling to hand, noted mild swelling to long and ring finger, localized to PIP joint ring finger due to avulsion fracture tingling does not follow any nerve distribution, is generalized to finger due to swelling hand soft, non tender, no clinical suspicion of compartment syndrome or infection elevation to improve swelling, rest, splint orthopedically stable f/u official MRI reading prior to d/c patient to follow up in office of Dr. Chance within 1 week, return to ER for worsening of symtoms Status: Acute
--- NOTE | 2017-07-19 10:30 | RAD ---
PROCEDURE: Right Hand Radiographs. HISTORY: hand crush injury, attention ring finger COMPARISON: Not available FINDINGS: BONES: Normal. No fracture. JOINTS: Osteoarthritis DIP 2 through 5. Remaining joint spaces are preserved. Articular surfaces are preserved. SOFT TISSUES: Normal. OTHER FINDINGS: None. IMPRESSION: No acute fracture. Osteoarthritis DIP 2 through 5.
--- NOTE | 2017-07-19 13:52 | MRI ---
PROCEDURE: MRI of the right hand without contrast HISTORY: crush injury, pain, swelling R 4th digit and hand COMPARISON: Plain film same day TECHNIQUE: MRI of the right hand was performed in multiple planes using multiple pulse sequences FINDINGS: There is minimal soft tissue edema in the 3rd and 4th fingers. There is no marrow edema to suggest fracture. As seen on plain films there are osteoarthritis changes in the DIP joints. IMPRESSION: No evidence of acute fracture or bone bruise
--- NOTE | 2017-07-19 14:06 | CP.PCM.DIS ---
<Beto Sparks - Last Filed: 07/19/17 14:04> Provider - Provider Date of Admission: 07/18/17 20:30 Attending physician: Marija Sumner DO Primary care physician: none Consults: Ortho- Dr. Chance Time Spent in preparation of Discharge (in minutes): 45 Diagnosis - Discharge Diagnosis (1) Crushing injury of right hand Status: Acute Comment: Xray and MRI show no sign of fracture. Ortho cleared for discharge, for outpatient followup. Hospital Course - Lab Results Lab Results: Most Recent Lab Values WBC 8.7 K/uL (4.8-10.8) D 07/18/17 19:53 RBC 4.75 Mil/uL (3.80-5.20) 07/18/17 19:53 Hgb 14.5 g/dL (11.0-16.0) 07/18/17 19:53 Hct 42.5 % (34.0-47.0) 07/18/17 19:53 MCV 89.4 fL (81.0-99.0) 07/18/17 19:53 MCH 30.5 pg (27.0-31.0) 07/18/17 19:53 MCHC 34.1 g/dL (33.0-37.0) 07/18/17 19:53 RDW 13.2 % (11.5-14.5) 07/18/17 19:53 Plt Count 229 K/uL (130-400) 07/18/17 19:53 MPV 9.0 fL (7.2-11.7) 07/18/17 19:53 Neut % (Auto) 64.4 % (50.0-75.0) 07/18/17 19:53 Lymph % (Auto) 26.7 % (20.0-40.0) 07/18/17 19:53 Vernon % (Auto) 5.6 % (0.0-10.0) 07/18/17 19:53 Eos % (Auto) 2.7 % (0.0-4.0) 07/18/17 19:53 Baso % (Auto) 0.6 % (0.0-2.0) 07/18/17 19:53 Neut # 5.6 K/uL (1.8-7.0) 07/18/17 19:53 Lymph # 2.3 K/uL (1.0-4.3) 07/18/17 19:53 Vernon # 0.5 K/uL (0.0-0.8) 07/18/17 19:53 Eos # 0.2 K/uL (0.0-0.7) 07/18/17 19:53 Baso # 0.1 K/uL (0.0-0.2) 07/18/17 19:53 Sodium 138 mmol/L (132-148) 07/18/17 19:53 Potassium 4.0 mmol/L (3.6-5.2) 07/18/17 19:53 Chloride 99 mmol/L (98-107) 07/18/17 19:53 Carbon Dioxide 32 mmol/L (22-30) H 07/18/17 19:53 Anion Gap 11 (10-20) 07/18/17 19:53 BUN 14 mg/dL (7-17) 07/18/17 19:53 Creatinine 0.7 mg/dL (0.7-1.2) 07/18/17 19:53 Est GFR ( Amer) > 60 07/18/17 19:53 Est GFR (Non-Af Amer) > 60 07/18/17 19:53 Random Glucose 118 mg/dL (65-105) H 07/18/17 19:53 Calcium 9.1 mg/dl (8.6-10.4) 07/18/17 19:53 Total Bilirubin 0.7 mg/dL (0.2-1.3) 07/18/17 19:53 AST 25 U/L (14-36) 07/18/17 19:53 ALT 38 U/L (9-52) 07/18/17 19:53 Alkaline Phosphatase 72 U/L (38-126) 07/18/17 19:53 Total Protein 7.6 g/dL (6.3-8.3) 07/18/17 19:53 Albumin 4.3 g/dL (3.5-5.0) 07/18/17 19:53 Globulin 3.4 gm/dL (2.2-3.9) 07/18/17 19:53 Albumin/Globulin Ratio 1.3 (1.0-2.1) 07/18/17 19:53 Triglycerides 152 mg/dL (0-149) H 07/19/17 07:46 Cholesterol 190 mg/dL (0-199) 07/19/17 07:46 LDL Cholesterol Direct 103 mg/dL (0-129) 07/19/17 07:46 HDL Cholesterol 61 mg/dL (30-70) 07/19/17 07:46 Free T4 1.20 ng/dL (0.78-2.19) 07/19/17 07:46 TSH 3rd Generation 3.64 mIU/L (0.46-4.68) 07/19/17 07:46 - Hospital Course Hospital Course: Patient was admitted to the hospital for evaluation of a crushing injury that occurred at work. Patient states her hand got stuck in a machine designed to compress cardboard. 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 Patient was seen by orthopedics who ordered an MRI of the hand, which showed no evidence of acute fracture or bone bruising, minimal soft tissue edema in the 3rd and 4th fingers, as well as osteoarthritic changes. Patient was cleared by ortho for discharge and sent home with a splint, with instructions to followup outpatient. Patient was sent home with the following discharge instructions. Please discharge patient home, as per Dr. Sumner. Patient is to continue taking home medications as instructed. Patient is to followup with her primary care doctor within 1 week of discharge. If patient does not have a primary care doctor, patient is to establish care within 1 week in the [facility] on the basement floor of [facility]. Patient will need to followup with an orthopedic doctor. Patient is to take tylenol or ibuprofen as needed for pain. If symptoms worsen, patient is to return to the hospital for further evaluation and treatment. Discharge Exam - Head Exam Head Exam: ATRAUMATIC - Eye Exam Eye Exam: EOMI, Normal appearance Pupil Exam: NORMAL ACCOMODATION, PERRL - ENT Exam ENT Exam: Mucous Membranes Moist - Respiratory Exam Respiratory Exam: Clear to PA & Lateral, NORMAL BREATHING PATTERN, UNREMARKABLE - Cardiovascular Exam Cardiovascular Exam: REGULAR RHYTHM, +S1, +S2 - GI/Abdominal Exam GI & Abdominal Exam: Normal Bowel Sounds, Soft, Unremarkable. absent: Distended , Firm, Tenderness - Extremities Exam Extremities exam: normal capillary refill, pedal pulses present Additional comments: limited active range of motion on right 3rd and 4th digit. - Neurological Exam Neurological exam: Alert, Oriented x3 - Psychiatric Exam Psychiatric exam: Normal Affect, Normal Mood - Skin Skin Exam: Dry, Intact, Normal Color, Warm Discharge Plan - Follow Up Plan Condition: STABLE Disposition: HOME/ ROUTINE Instructions: Meralgia Paresthetica (GEN) Additional Instructions: Please discharge patient home, as per Dr. Sumner. Patient is to continue taking home medications as instructed. Patient is to followup with her primary care doctor within 1 week of discharge. If patient does not have a primary care doctor, patient is to establish care within 1 week in the [facility] on the basement floor of [facility]. Patient will need to followup with an orthopedic doctor. Upon discharge, patient will need to obtain a copy of her Xrays and MRI to bring to her appointments. Patient is to take tylenol or ibuprofen as needed for pain. If symptoms worsen, patient is to return to the hospital for further evaluation and treatment. Referrals: [facility] [Outside] Lan Chance III, MD [Staff Provider] - <Marija Sumner V - Last Filed: 07/19/17 17:26> Provider - Provider Date of Admission: 07/18/17 20:30 Attending physician: Marija Sumner, [facility] Course - Lab Results Lab Results: Most Recent Lab Values WBC 8.7 K/uL (4.8-10.8) D 07/18/17 19:53 RBC 4.75 Mil/uL (3.80-5.20) 07/18/17 19:53 Hgb 14.5 g/dL (11.0-16.0) 07/18/17 19:53 Hct 42.5 % (34.0-47.0) 07/18/17 19:53 MCV 89.4 fL (81.0-99.0) 07/18/17 19:53 MCH 30.5 pg (27.0-31.0) 07/18/17 19:53 MCHC 34.1 g/dL (33.0-37.0) 07/18/17 19:53 RDW 13.2 % (11.5-14.5) 07/18/17 19:53 Plt Count 229 K/uL (130-400) 07/18/17 19:53 MPV 9.0 fL (7.2-11.7) 07/18/17 19:53 Neut % (Auto) 64.4 % (50.0-75.0) 07/18/17 19:53 Lymph % (Auto) 26.7 % (20.0-40.0) 07/18/17 19:53 Vernon % (Auto) 5.6 % (0.0-10.0) 07/18/17 19:53 Eos % (Auto) 2.7 % (0.0-4.0) 07/18/17 19:53 Baso % (Auto) 0.6 % (0.0-2.0) 07/18/17 19:53 Neut # 5.6 K/uL (1.8-7.0) 07/18/17 19:53 Lymph # 2.3 K/uL (1.0-4.3) 07/18/17 19:53 Vernon # 0.5 K/uL (0.0-0.8) 07/18/17 19:53 Eos # 0.2 K/uL (0.0-0.7) 07/18/17 19:53 Baso # 0.1 K/uL (0.0-0.2) 07/18/17 19:53 Sodium 138 mmol/L (132-148) 07/18/17 19:53 Potassium 4.0 mmol/L (3.6-5.2) 07/18/17 19:53 Chloride 99 mmol/L (98-107) 07/18/17 19:53 Carbon Dioxide 32 mmol/L (22-30) H 07/18/17 19:53 Anion Gap 11 (10-20) 07/18/17 19:53 BUN 14 mg/dL (7-17) 07/18/17 19:53 Creatinine 0.7 mg/dL (0.7-1.2) 07/18/17 19:53 Est GFR ( Amer) > 60 07/18/17 19:53 Est GFR (Non-Af Amer) > 60 07/18/17 19:53 Random Glucose 118 mg/dL (65-105) H 07/18/17 19:53 Calcium 9.1 mg/dl (8.6-10.4) 07/18/17 19:53 Total Bilirubin 0.7 mg/dL (0.2-1.3) 07/18/17 19:53 AST 25 U/L (14-36) 07/18/17 19:53 ALT 38 U/L (9-52) 07/18/17 19:53 Alkaline Phosphatase 72 U/L (38-126) 07/18/17 19:53 Total Protein 7.6 g/dL (6.3-8.3) 07/18/17 19:53 Albumin 4.3 g/dL (3.5-5.0) 07/18/17 19:53 Globulin 3.4 gm/dL (2.2-3.9) 07/18/17 19:53 Albumin/Globulin Ratio 1.3 (1.0-2.1) 07/18/17 19:53 Triglycerides 152 mg/dL (0-149) H 07/19/17 07:46 Cholesterol 190 mg/dL (0-199) 07/19/17 07:46 LDL Cholesterol Direct 103 mg/dL (0-129) 07/19/17 07:46 HDL Cholesterol 61 mg/dL (30-70) 07/19/17 07:46 Free T4 1.20 ng/dL (0.78-2.19) 07/19/17 07:46 TSH 3rd Generation 3.64 mIU/L (0.46-4.68) 07/19/17 07:46 Attending/Attestation - Attestation I have personally seen and examined this patient.: Yes I have fully participated in the care of the patient.: Yes I have reviewed all pertinent clinical information, including history, physical exam and plan: Yes Notes (Text): Patient seen, examined, and case discussed with Dr. Wong and resident at bedside. Patient completed CT and MRI imaging. per Ortho, patient is stable for discharge. Patient recommended to follow-up outpatient at the [facility] ). No new medications provided. I spoke with patient's outpatient pharmacy, has not picked up any scripts for Amitrypline, Synthroid, nor Simvastatin. Patient has refills Lisinopril and HCTZ. Note: patient is allergic to Motrin; reports when she was last hospitalized in [place] she had rapid heart rate and hands were shaking. Discharge instructions updated to reflect her allergy. Patient has tolerated Aspirin during hospitalization. No allergies nor adverse reaction noted.
--- NOTE | 2017-07-19 17:14 | CP.PCM.PN ---
Subjective - Date & Time of Evaluation Date of Evaluation: 07/19/17 Time of Evaluation: 12:20 - Subjective Subjective: Brief Note: I spoke with the [facility]. Patient has refills on the Lisinopril and HCTZ. Patient has not picked up Levothyroxine 50mcg POqdaily. Patient has not picked up a script for Simvastatin 20mg POqHS and Amtryppline 25mgPOHS. Patient will need to follow-up with the [facility] ( [phone]) in regards to these medications. Objective - Vital Signs/Intake and Output Vital Signs (last 24 hours): Temp Pulse Resp BP Pulse Ox 98.4 F 60 20 116/72 96 07/19/17 08:08 07/19/17 08:08 07/19/17 08:08 07/19/17 08:08 07/19/17 08:08 - Medications Medications: Current Medications Acetaminophen (Tylenol 325mg Tab) 650 mg PO Q6 PRN PRN Reason: Pain, Mild (1-3) Last Admin: 07/19/17 12:12 Dose: 650 mg Amitriptyline HCl (Elavil) 25 mg PO HS [facility] Aspirin (Ecotrin) 81 mg PO DAILY [facility] Last Admin: 07/19/17 09:53 Dose: 81 mg Ergocalciferol (Drisdol 50,000 Intl Units Cap) 1 cap PO QWK [facility] Last Admin: 07/19/17 09:53 Dose: 1 cap Famotidine (Pepcid) 20 mg PO BID [facility] Last Admin: 07/19/17 09:53 Dose: 20 mg Heparin Sodium (Porcine) (Heparin) 5,000 units SC Q12 [facility] Last Admin: 07/19/17 09:52 Dose: 5,000 units Hydrochlorothiazide (Microzide) 12.5 mg PO DAILY [facility] Last Admin: 07/19/17 09:53 Dose: 12.5 mg Levothyroxine Sodium (Synthroid) 50 mcg PO DAILY@0630 [facility] Last Admin: 07/19/17 05:40 Dose: 50 mcg Lisinopril (Zestril) 20 mg PO DAILY [facility] Last Admin: 07/19/17 09:53 Dose: 20 mg - Labs Labs: 07/18/17 19:53 07/18/17 19:53
[2017-07-19 17:50] VITALS: BP 114/66; PULSE 66; TEMP 98
== END 2017-07-19 20:15 | disposition home or self-care (01) ==
LOC: C.ER 17:39 → C.9E 20:30 → C.3T 22:47
PROVIDERS: ADMIT Hospitalist; ATTEND Hospitalist
DX: S67.21XA Crushing injury of right hand, initial encounter (principal); W23.0XXA Caught, crushed, jammed, or pinched between moving objects, initial encounter; Y99.0 Civilian activity done for income or pay; M19.90 Unspecified osteoarthritis, unspecified site; I12.9 Hypertensive chronic kidney disease with stage 1 through stage 4 chronic kidney disease, or unspecified chronic kidney disease; N18.9 Chronic kidney disease, unspecified; I48.91 Unspecified atrial fibrillation; Z87.442 Personal history of urinary calculi; Z90.49 Acquired absence of other specified parts of digestive tract; E78.00 Pure hypercholesterolemia, unspecified
CPT/HCPCS: 36415; 73130; 73218; 80053; 80061; 84439; 84443; 85025; 99285; G0378; J1644

== ENCOUNTER 2017-09-13 09:31 | Emergency (ER) | payer OTHER ==
[2017-09-13 09:41] VITALS: BMI 29.8
[2017-09-13 10:36] LABS: SQUAMOUS EPITHIAL < 1 /hpf (0-5); URINE BILIRUBIN NEGATIVE (NEGATIVE); URINE BLOOD NEGATIVE (NEGATIVE); URINE CLARITY Clear (Clear); URINE COLOR Yellow (YELLOW); URINE GLUCOSE (UA) NORMAL (Normal); URINE LEUKOCYTE ESTERASE TRACE Leu/uL (Negative); URINE NITRATE NEGATIVE (NEGATIVE); URINE PROTEIN NEGATIVE (NEGATIVE); URINE UROBILINOGEN NORMAL mg/dL (0.2-1.0)
[2017-09-13 10:54] LABS: ALB/GLOB RATIO 1.1 (1.0-2.1); ALBUMIN 4.2 g/dL (3.5-5.0); ALT/SGPT 29 U/L (9-52); AST/SGOT 24 U/L (14-36); BLOOD UREA NITROGEN 15 mg/dL (7-17); CALCIUM 9.2 mg/dl (8.6-10.4); GFR AFRICAN-AMERICAN > 60; GFR NON-AFRICAN AMERICAN > 60
[2017-09-13 10:59] LABS: BASO # 0.1 K/uL (0.0-0.2); BASO % 0.6 % (0.0-2.0); EOS # 0.2 K/uL (0.0-0.7); EOS % 1.9 % (0.0-4.0); LYMPH # 1.4 K/uL (1.0-4.3); LYMPH % 14.7 % (20.0-40.0); MEAN CELL VOLUME 88.6 fL (81.0-99.0); MEAN CORPUSCULAR HEMOGLOBIN 31.1 pg (27.0-31.0); MEAN CORPUSCULAR HGB CONC 35.1 g/dL (33.0-37.0); MEAN PLATELET VOLUME 9.4 fL (7.2-11.7); MONO # 0.5 K/uL (0.0-0.8); MONO % 5.1 % (0.0-10.0); NEUT # 7.2 K/uL (1.8-7.0); NEUT % 77.7 % (50.0-75.0); NRBC % 0.1 % (0.0-2.0); RBC 4.5 Mil/uL (3.80-5.20); RED CELL DISTRIBUTION WIDTH 12.5 % (11.5-14.5); WHITE BLOOD COUNT 9.3 K/uL (4.8-10.8)
--- NOTE | 2017-09-13 11:23 | CT ---
PROCEDURE: CT HEAD WITHOUT CONTRAST. HISTORY: r/o ICH COMPARISON: 03/07/2017 TECHNIQUE: Axial computed tomography images were obtained through the head/brain without intravenous contrast. Radiation dose: Total exam DLP = 823.83 mGy-cm. This CT exam was performed using one or more of the following dose reduction techniques: Automated exposure control, adjustment of the mA and/or kV according to patient size, and/or use of iterative reconstruction technique. FINDINGS: HEMORRHAGE: No intracranial hemorrhage. BRAIN: No mass effect or edema. No atrophy or chronic microvascular ischemic changes. VENTRICLES: Unremarkable. No hydrocephalus. CALVARIUM: Unremarkable. PARANASAL SINUSES: Unremarkable as visualized. No significant inflammatory changes. MASTOID AIR CELLS: Unremarkable as visualized. No inflammatory changes. OTHER FINDINGS: None. IMPRESSION: Normal CT of the Head. No intracranial mass, hemorrhage or evidence of acute infarct
--- NOTE | 2017-09-13 13:13 | C.PDOC ---
History Of Present Illness 66 y/o female, with history of HTN and vertigo, presents to the ER complaining of dizziness and HTN. Daughter states that her mother takes her medication every night but she did not take her medications last night. Patient woke up last night with typical symptoms of vertigo and she took her blood pressure medications at the time. Patient states she has a headache but it is not the worse headache of her life. She denies having fever, cough, chest pain, SOB,and abdominal pain. Chief Complaint (Nursing): Dizziness/Lightheaded History Per: Patient History/Exam Limitations: no limitations Onset/Duration Of Symptoms: Days Current Symptoms Are (Timing): Still Present Severity: Moderate Past Medical History Reviewed: Historical Data, Nursing Documentation, Vital Signs Vital Signs: Last Vital Signs Temp 98.6 F 09/13/17 13:14 Pulse 63 09/13/17 13:14 Resp 18 09/13/17 13:14 BP 124/74 09/13/17 13:14 Pulse Ox 97 09/13/17 13:29 - Medical History PMH: Atrial Fibrillation (?), Depression, HTN, Hypercholesterolemia, Hypothyroidism, Kidney Stones, Chronic Kidney Disease (kidney stones) Surgical History: Appendectomy - [facility] Procedures INJECT/INFUSE NEC (08/22/14) INTRODUCTION OF SERUM/TOX/VACCINE INTO MUSCLE, PERC APPROACH (09/04/16) UMBIL HERNIA REPAIR NEC (07/21/98) Family History: States: Hypertension - Social History Hx Alcohol Use: No Hx Substance Use: No - Immunization History Hx Tetanus Toxoid Vaccination: Yes Hx Influenza Vaccination: Yes Hx Pneumococcal Vaccination: Yes Review Of Systems Except As Marked, All Systems Reviewed And Found Negative. Constitutional: Negative for: Fever Cardiovascular: Negative for: Chest Pain Respiratory: Negative for: Cough, Shortness of Breath Gastrointestinal: Negative for: Abdominal Pain Neurological: Positive for: Dizziness. Negative for: Headache Physical Exam - Physical Exam Appears: Non-toxic, No Acute Distress Skin: Normal Color, Warm Head: Atraumatic, Normacephalic Eye(s): bilateral: Normal Inspection Nose: Normal Oral Mucosa: Moist Neck: Supple Chest: Symmetrical Cardiovascular: Rhythm Regular Respiratory: Normal Breath Sounds, No Accessory Muscle Use, No Rales, No Rhonchi , No Wheezing Gastrointestinal/Abdominal: Normal Exam, Soft, No Tenderness Extremity: Normal ROM Neurological/Psych: Oriented x3, Normal Speech, Normal Motor, Normal Sensation ED Course And Treatment - Laboratory Results Result Diagrams: 09/13/17 10:37 09/13/17 10:37 O2 Sat by Pulse Oximetry: 97 - CT Scan/US No standard instances Other Rad Studies (CT/US): Read By Radiologist CT/US Interpretation: PROCEDURE: CT HEAD WITHOUT CONTRAST. HISTORY: r/o ICH. COMPARISON: 03/07/2017. TECHNIQUE: Axial computed tomography images were obtained through the head/brain without intravenous contrast. Radiation dose: Total exam DLP = 823.83 mGy-cm. This CT exam was performed using one or more of the following dose reduction techniques: Automated exposure control, adjustment of the mA and/or kV according to patient size, and/or use of iterative reconstruction technique. FINDINGS: HEMORRHAGE: No intracranial hemorrhage. BRAIN: No mass effect or edema. No atrophy or chronic microvascular ischemic changes. VENTRICLES: Unremarkable. No hydrocephalus. CALVARIUM: Unremarkable. PARANASAL SINUSES: Unremarkable as visualized. No significant inflammatory changes. MASTOID AIR CELLS: Unremarkable as visualized. No inflammatory changes. OTHER FINDINGS: None. IMPRESSION: Normal CT of the Head. No intracranial mass, hemorrhage or evidence of acute infarct Medical Decision Making Medical Decision Making: Plan: --CT-Head --CXR --Labs Disposition - Disposition Referrals: Tomasz Diego, [Non-Staff] - Disposition: HOME/ ROUTINE Disposition Time: 12:00 Condition: IMPROVED Additional Instructions: Thank you for letting us take care of you today. The emergency medical care you received today was directed at your acute symptoms. If you were prescribed any medication, please fill it and take as directed. It may take several days for your symptoms to resolve. Return to the Emergency Department if your symptoms worsen, do not improve, or if you have any other problems. Please contact your doctor or call one of the physicians/clinics you have been referred to that are listed on the Patient Visit Information form that is included in your discharge packet. Bring any paperwork you were given at discharge with you along with any medications you are taking to your follow up visit. Our treatment cannot replace ongoing medical care by a primary care provider (PCP) outside of the emergency department. Thank you for allowing the [facility] team to be part of your care today. Follow up with your doctor the clinic in 3-4 days for re-evaluation and further management. Prescriptions: oxyCODONE [oxyCODONE Immediate Release Tab] 5 mg PO Q8 PRN #5 tab PRN Reason: Pain, Severe (8-10) Instructions: Hypertension (ED), Dizziness (ED) Forms: [facility] ([place]) - Clinical Impression Clinical Impression: Dizziness, HTN (hypertension) - Scribe Statement The provider has reviewed the documentation as recorded by the Ana Spencer Provider Attestation: All medical record entries made by the Estephanieibyao were at my direction and personally dictated by me. I have reviewed the chart and agree that the record accurately reflects my personal performance of the history, physical exam, medical decision making, and the department course for this patient. I have also personally directed, reviewed, and agree with the discharge instructions and disposition.
[2017-09-13 13:15] VITALS: BP 124/74; PULSE 63; RESP 18; TEMP 98.6
[2017-09-13 13:16] VITALS: O2SAT 97
--- NOTE | 2017-09-13 13:29 | RAD ---
PROCEDURE: CHEST RADIOGRAPH, 1 VIEW HISTORY: r/o infiltrate COMPARISON: 05/22/2017 FINDINGS: LUNGS: Clear. PLEURA: No pneumothorax or pleural fluid seen. CARDIOVASCULAR: Normal. OSSEOUS STRUCTURES: No significant abnormalities. VISUALIZED UPPER ABDOMEN: Normal. OTHER FINDINGS: None. IMPRESSION: No active disease.
[2017-09-13] MEDS ORDERED: oxyCODONE 5 mg Immediate Release Tab PO STA (13:41)
[2017-09-13] MEDS ORDERED: Oxycodone/Acetaminophen 5/325 mg Tab ONE (13:45)
== END 2017-09-13 13:56 | disposition home or self-care (01) ==
LOC: C.ER 09:31
DX: R42 Dizziness and giddiness (principal); I12.9 Hypertensive chronic kidney disease with stage 1 through stage 4 chronic kidney disease, or unspecified chronic kidney disease; N18.9 Chronic kidney disease, unspecified; E78.00 Pure hypercholesterolemia, unspecified

== ENCOUNTER 2017-09-20 18:32 | Emergency (ER) | payer OTHER ==
[2017-09-20 19:02] VITALS: BMI 29.7
--- NOTE | 2017-09-20 20:25 | C.PDOC ---
History Of Present Illness Patient is a 66 y/o female who presents to the ED with a complaint of a headache since yesterday. Patient expresses concern for high blood pressure as well. Patient describes headache as occipital; admits to some nausea, vomiting, and mild photophobia. Patient was seen last week in ED for similar complaints and received a negative head CT. No other physical complaints at this time. Time Seen by Provider: 09/20/17 20:24 Chief Complaint (Nursing): Headache History Per: Patient History/Exam Limitations: no limitations Onset/Duration Of Symptoms: Days (yesterday) Current Symptoms Are (Timing): Still Present Severity: Moderate Pain Scale Rating Of: 4 Associated Symptoms: Photophobia, Nausea, Vomiting Recent travel outside of the [place]: No Past Medical History Vital Signs: Last Vital Signs Temp 101 F H 09/20/17 20:45 Pulse 102 H 09/20/17 20:45 Resp 20 09/20/17 20:45 BP 167/84 H 09/20/17 20:45 Pulse Ox 100 09/20/17 21:21 - Medical History PMH: Atrial Fibrillation (?), Depression, HTN, Hypercholesterolemia, Hypothyroidism, Kidney Stones, Chronic Kidney Disease (kidney stones) Surgical History: Appendectomy - [facility] Procedures INJECT/INFUSE NEC (08/22/14) INTRODUCTION OF SERUM/TOX/VACCINE INTO MUSCLE, PERC APPROACH (09/04/16) UMBIL HERNIA REPAIR NEC (07/21/98) Family History: States: Hypertension - Social History Hx Tobacco Use: No Hx Alcohol Use: No Hx Substance Use: No - Immunization History Hx Tetanus Toxoid Vaccination: Yes Hx Influenza Vaccination: Yes Hx Pneumococcal Vaccination: Yes Review Of Systems Eyes: Positive for: Other (mild photophobia) Gastrointestinal: Positive for: Nausea, Vomiting Neurological: Positive for: Headache Physical Exam - Physical Exam Appears: Non-toxic, No Acute Distress Skin: Warm, Dry Head: Normacephalic Eye(s): bilateral: Normal Inspection Oral Mucosa: Moist Chest: Symmetrical Cardiovascular: Rhythm Regular, No Murmur Respiratory: Normal Breath Sounds, No Rales, No Rhonchi, No Wheezing Neurological/Psych: Oriented x3, Normal Speech (speaking in complete sentences) , Other (no other focal deficits) ED Course And Treatment - Laboratory Results Result Diagrams: 09/20/17 21:09 09/20/17 21:09 O2 Sat by Pulse Oximetry: 100 Pulse Ox Interpretation: Normal Progress Note: Blood work ordered. Tylenol, benadryl, solumedrol, reglan, morphine, and IV fluids administered. Disposition Counseled Patient/Family Regarding: Studies Performed, Diagnosis, Need For Followup, Rx Given - Disposition Referrals: Susie Cole MD [Staff Provider] - Disposition: HOME/ ROUTINE Disposition Time: 20:25 Condition: FAIR Prescriptions: Ondansetron ODT [Zofran ODT] 1 odt PO BID PRN #10 odt PRN Reason: Nausea/Vomiting Oseltamivir Phosphate [Tamiflu] 75 mg PO BID #10 capsule Instructions: Migraine Headache (ED) Forms: [employer] ([place]) - Clinical Impression Clinical Impression: Migraine - Scribe Statement The provider has reviewed the documentation as recorded by the Scribe Latha White All medical record entries made by the Scribe were at my direction and personally dictated by me. I have reviewed the chart and agree that the record accurately reflects my personal performance of the history, physical exam, medical decision making, and the department course for this patient. I have also personally directed, reviewed, and agree with the discharge instructions and disposition.
[2017-09-20] MEDS ORDERED: DiphenhydrAMINE 50 mg/ml Inj IVP STA (20:41)
[2017-09-20] MEDS ORDERED: Sodium Chloride 0.9% 1,000 ML IV ONE (20:43)
[2017-09-20 20:45] VITALS: RESP 20
[2017-09-20] MEDS ORDERED: DiphenhydrAMINE 50 mg/ml Inj ONE (20:52)
[2017-09-20] MEDS ORDERED: Sodium Chloride 0.9% 1,000 ML ONE (20:53)
[2017-09-20 21:15] LABS: BASO % 0.1 % (0.0-2.0); EOS # 0.1 K/uL (0.0-0.7); EOS % 0.7 % (0.0-4.0); LYMPH # 0.8 K/uL (1.0-4.3); LYMPH % 7.2 % (20.0-40.0); MEAN CELL VOLUME 88.8 fL (81.0-99.0); MEAN CORPUSCULAR HEMOGLOBIN 31.2 pg (27.0-31.0); MEAN CORPUSCULAR HGB CONC 35.1 g/dL (33.0-37.0); MEAN PLATELET VOLUME 9.2 fL (7.2-11.7); MONO # 0.6 K/uL (0.0-0.8); MONO % 5.2 % (0.0-10.0); NEUT # 9.5 K/uL (1.8-7.0); NEUT % 86.8 % (50.0-75.0); PLATELET COUNT 186 K/uL (130-400); RED CELL DISTRIBUTION WIDTH 12.5 % (11.5-14.5)
[2017-09-20 21:38] LABS: ALB/GLOB RATIO 1.1 (1.0-2.1); ALBUMIN 4.5 g/dL (3.5-5.0); ALT/SGPT 27 U/L (9-52); AST/SGOT 22 U/L (14-36); BLOOD UREA NITROGEN 15 mg/dL (7-17); CALCIUM 9.5 mg/dl (8.6-10.4); GFR AFRICAN-AMERICAN > 60; GFR NON-AFRICAN AMERICAN > 60
[2017-09-20 23:17] LABS: PLATELET ESTIMATE NORMAL (NORMAL)
[2017-09-20 23:19] LABS: BANDS 6 % (0-2); LYMPHOCYTE 7 % (20-40); MONOCYTE 5 % (0-10); NEUTROPHIL 82 % (50-75); TOTAL CELLS COUNTED 100
[2017-09-20 23:20] LABS: ANISOCYTOSIS SLIGHT; HYPERSEGMENTATION PRESENT; LARGE PLATELETS PRESENT; POIKILOCYTOSIS SLIGHT; SMUDGE CELLS PRESENT; SPHEROCYTES SLIGHT
[2017-09-20 23:37] VITALS: BP 130/77; PULSE 78; TEMP 98.7; O2SAT 95
== END 2017-09-21 00:05 | disposition home or self-care (01) ==
LOC: C.ER 18:32
DX: G43.909 Migraine, unspecified, not intractable, without status migrainosus (principal); E03.9 Hypothyroidism, unspecified; E78.00 Pure hypercholesterolemia, unspecified; I48.91 Unspecified atrial fibrillation; I10 Essential (primary) hypertension
CPT/HCPCS: 80053; 85025; 96361; 96374; 96375; 99285; J1200; J2270; J2765; J2930; J7040

== ENCOUNTER 2017-11-21 09:30 | Day surgery (SDC) | payer OTHER ==
[2017-10-28 11:01] VITALS: BMI 28.7
[2017-11-21] MEDS: Tetracaine 0.5% Ophth (OR ONLY) ONE ×2 (08:19→10:30)
[2017-11-21] MEDS: Chondroitin/Hyaluronate Opth Syringe KIT (0.55 ml-0.5 ml) IO ONE ×2 (08:20→10:30)
[2017-11-21] MEDS: Hyaluronidase Human, Recombi 150 U/ML VIAL ONE ×2 (08:20→10:30)
[2017-11-21] MEDS: Carbachol 0.01% IO ONE ×2 (08:21→10:30)
[2017-11-21] MEDS: Tobramycin/Dexamethasone OPHT OINT ONE ×2 (08:21→10:50)
[~2017-11-21 09:30] MED LIST: Lactated Ringer's 500 ML IV ONE; Lidocaine Hydrochloride 5 ML INJ ONE; Phenylephrine 2.5% Opht Soln OD SCH; Tropicamide 1% Opht SOLUTION OD SCH
[2017-11-21] MEDS ORDERED: Lactated Ringer's 1,000 ML IV ONE (10:20)
[2017-11-21] MEDS ORDERED: Propofol 10 mg/ml Inj (20 ML) ONE (10:45)
[2017-11-21 11:15] VITALS: RESP 16; TEMP 97.6
[2017-11-21 12:02] VITALS: BP 154/68; PULSE 68; O2SAT 98
--- NOTE | 2017-11-22 18:09 | OP ---
PROCEDURE DATE: 11/21/2017 PREOPERATIVE DIAGNOSIS: Nuclear cataract, right eye. POSTOPERATIVE DIAGNOSIS: Nuclear cataract, right eye. PROCEDURE: Cataract extraction with lens implant, right eye. SURGEON: Cleve Galdamez MD ANESTHESIA: Retrobulbar block. COMPLICATIONS: None. DESCRIPTION OF PROCEDURE: The patient was brought to the operating room and properly identified. Anesthesia staff administered intravenous sedation and retrobulbar block was given to the surgical eye. The patient was then prepped and draped in the usual sterile fashion. Attention was turned to the surgical eye. A lid speculum was placed into interpalpebral fissure. Sitting temporally, two paracentesis incisions were made. The anterior chamber was filled with viscoelastic and a triplanar clear corneal incision was made. Using a cystitome, anterior capsular leaflet was created. Utrata forceps were used to create a continuous curvilinear capsulorrhexis. Balanced salt solution on a cannula was used to hydrodissect and hydrodelineate the lens. The lens was then phacoemulsified with no complications. Automated irrigation and aspiration was used to remove the cortex. Viscoelastic was used to deepen the anterior chamber. The lens was placed in the capsular bag. Automated irrigation and aspiration was used to remove the viscoelastic. The anterior chamber was filled with Miochol. The wounds were hydrated with balanced salt solution. There was noted to be no leak at the end of the case and the lens was well positioned. The lid speculum was removed. The eye was given antibiotics and steroids and covered with a patch and shield. The patient was returned to the recovery room in stable condition. Cleve Galdamez MD
== END 2017-11-21 11:56 | disposition home or self-care (01) ==
LOC: C.SDS 09:30
PROVIDERS: ATTEND Ophthalmology
DX: H25.13 Age-related nuclear cataract, bilateral (principal)
CPT/HCPCS: 66984; J2704; J3470; J7120; V2632

== ENCOUNTER 2017-12-19 06:04 | Day surgery (SDC) | payer OTHER ==
[2017-11-29 09:55] VITALS: BMI 34.4
[2017-12-19] MEDS ORDERED: Lactated Ringer's 500 ML IV ONE ×4 (06:53→08:25)
[2017-12-19] MEDS ORDERED: Tropicamide 1% Opht SOLUTION OS SCH (07:00)
[2017-12-19] MEDS ORDERED: Phenylephrine 2.5% Opht Soln OS SCH (07:00)
[2017-12-19] MEDS ORDERED: Tobramycin/Dexamethasone OPHT OINT ONE (07:25)
[2017-12-19] MEDS ORDERED: Carbachol 0.01% IO ONE (07:25)
[2017-12-19] MEDS ORDERED: Tetracaine 0.5% Ophth (OR ONLY) ONE (07:25)
[2017-12-19] MEDS ORDERED: Povidone Iodine Ophthalmic 5% Soln ONE (07:25)
[2017-12-19] MEDS ORDERED: Chondroitin/Hyaluronate Opth Syringe KIT (0.55 ml-0.5 ml) IO ONE (07:26)
[2017-12-19] MEDS ORDERED: Hyaluronidase Human, Recombi 150 U/ML VIAL ONE (07:27)
[2017-12-19] MEDS ORDERED: Lidocaine Hydrochloride 5 ML INJ ONE (07:31)
[2017-12-19] MEDS ORDERED: Phenylephrine 2.5% Opht Soln ONE (07:44)
[2017-12-19] MEDS ORDERED: Cyclopentolate 1% Opth (2 ml) ONE (07:44)
[2017-12-19] MEDS ORDERED: Propofol 10 mg/ml Inj (20 ML) ONE (07:51)
[2017-12-19 08:51] VITALS: RESP 18
[2017-12-19 12:06] VITALS: BP 130/62; PULSE 66; TEMP 97.9; O2SAT 99
--- NOTE | 2017-12-19 20:53 | OP ---
PROCEDURE DATE: 12/19/2017 PREOPERATIVE DIAGNOSIS: Mature nuclear cataract, left eye. POSTOPERATIVE DIAGNOSIS: Mature nuclear cataract, left eye. PROCEDURE: Cataract extraction with lens implant, left eye. SURGEON: Cleve Galdamez MD TYPE OF ANESTHESIA: Retrobulbar block. COMPLICATIONS: None. ESTIMATED BLOOD LOSS: Zero. DESCRIPTION OF PROCEDURE: The patient was brought to the operating room and properly identified. Anesthesia staff administered intravenous sedation and retrobulbar block was given to the surgical eye. The patient was then prepped and draped in the usual sterile fashion. Attention was turned to the surgical eye. A lid speculum was placed into interpalpebral fissure. Sitting temporally, two paracentesis incisions were made. The anterior chamber was filled with viscoelastic and a triplanar clear corneal incision was made. Using a cystitome, anterior capsular leaflet was created. Utrata forceps were used to create a continuous curvilinear capsulorrhexis. Balanced salt solution on a cannula was used to hydrodissect and hydrodelineate the lens. The lens was then phacoemulsified with no complications. Automated irrigation and aspiration was used to remove the cortex. Viscoelastic was used to deepen the anterior chamber. The lens was placed in the capsular bag. Automated irrigation and aspiration was used to remove the viscoelastic. The anterior chamber was filled with Miochol. The wounds were hydrated with balanced salt solution. There was noted to be no leak at the end of the case and the lens was well positioned. The lid speculum was removed. The eye was given antibiotics and steroids and covered with a patch and shield. The patient was returned to the recovery room in stable condition. Cleve Galdamez MD
== END 2017-12-19 10:25 | disposition home or self-care (01) ==
LOC: C.SDS 06:04
PROVIDERS: ATTEND Ophthalmology
DX: H25.12 Age-related nuclear cataract, left eye (principal)
CPT/HCPCS: 66984; J2704; J3470; J7120; V2632

== ENCOUNTER 2018-01-09 13:34 | Emergency (ER) | payer OTHER ==
[2018-01-09 13:35] VITALS: BMI 34.4
--- NOTE | 2018-01-09 13:57 | C.PDOC ---
History Of Present Illness 67-year-old female, presents to the emergency department with complaints of left knee. Patient states that he slipped and fell in kitchen due to wet floor 2 -3 hrs prior to arrival. Patient fell on left side and now is complaining of pain to left knee. Pain radiates up to back and down to ankle. Otherwise denies head injury, neck pain, numbness/weakness, or any other associated symptoms. no other complaints at this time. Time Seen by Provider: 01/09/18 13:45 Chief Complaint (Nursing): Lower Extremity Problem/Injury History Per: Patient History/Exam Limitations: no limitations Past Medical History Reviewed: Historical Data, Nursing Documentation, Vital Signs Vital Signs: Last Vital Signs Temp 98.8 F 01/09/18 15:39 Pulse 62 01/09/18 17:06 Resp 18 01/09/18 17:06 BP 149/82 01/09/18 17:06 Pulse Ox 98 01/09/18 19:40 - Medical History PMH: Atrial Fibrillation (?), Depression, HTN, Hypercholesterolemia, Hypothyroidism, Kidney Stones, Chronic Kidney Disease Surgical History: Appendectomy - [facility] Procedures INJECT/INFUSE NEC (08/22/14) INTRODUCTION OF SERUM/TOX/VACCINE INTO MUSCLE, PERC APPROACH (09/04/16) UMBIL HERNIA REPAIR NEC (07/21/98) Family History: States: Hypertension - Social History Hx Tobacco Use: No Hx Alcohol Use: No Hx Substance Use: No - Immunization History Hx Tetanus Toxoid Vaccination: Yes Hx Influenza Vaccination: Yes Hx Pneumococcal Vaccination: Yes Review Of Systems Gastrointestinal: Negative for: Vomiting Musculoskeletal: Positive for: Leg Pain Neurological: Negative for: Weakness, Numbness Physical Exam - Physical Exam Appears: Non-toxic, No Acute Distress Skin: Normal Color, Warm, Dry, No Rash Head: Atraumatic, Normacephalic Eye(s): bilateral: Normal Inspection Nose: Normal Oral Mucosa: Moist Lips: Normal Appearing Neck: Normal ROM Chest: Symmetrical Cardiovascular: Rhythm Regular, No Murmur Respiratory: Normal Breath Sounds, No Accessory Muscle Use Back: Other (mild tenderness to coccygeal region) Extremity: Tenderness, No Deformity, No Swelling, Other (no left hip tenderness. Left knee: mild swelling and tenderness to anterior lateral knee left) Pulses: Left Dorsalis Pedis: Normal, Right Dorsalis Pedis: Normal Neurological/Psych: Oriented x3, Normal Speech ED Course And Treatment O2 Sat by Pulse Oximetry: 98 (RA) Pulse Ox Interpretation: Normal - CT Scan/US XR ankle Other Rad Studies (CT/US): Read By Radiologist, Radiology Report Reviewed CT/US Interpretation: Accession No. : [id number]. Patient Name / ID : JAC Owens / [id number]. Exam Date : 01/09/2018 14:16:02 ( Approved ). Study Comment : Sex / Age : F / 67Y. Creator : Lynette Cruz. Dictator : Lynette Griffin. Founder / Ceo : [employer]ation Equipment Operator : Lynette Griffin. Approver2 : Report Date : 01/09/2018 15:53:51. My Comment : . PROCEDURE: Left Ankle Radiographs. HISTORY: injury, pain lateral ankle. COMPARISON: None. FINDINGS: BONES: 2 x 4 mm well corticated ossification projects posterior to the tibia and fibula on the lateral view at the ankle joint level -a discrete donor site is not appreciated. The soft tissues here do not appear particularly edematous or swollen and Kager's fat-pad appears preserved. Lateral perimalleolar soft tissue swelling noted. The position of this well corticated ossification in that the other views is difficult to confirm with certainty. Inferior calcaneal spurring. JOINTS: No significant appearing osteoarthritis. Ankle mortise maintained. Talar dome grossly intact. SOFT TISSUES: As above. OTHER FINDINGS: None. IMPRESSION: 2 x 4 mm well corticated ossification projects posterior to the tibia and fibula on the lateral view at the ankle joint level - a discrete donor site is not appreciated. The soft tissues here do not appear particularly edematous or swollen and Kager's fat-pad appears preserved. Lateral perimalleolar soft tissue swelling noted. The position of this well corticated ossification in that the other views is difficult to confirm with certainty. This may be a chronic finding -a donor site for an avulsed fracture fragment is not assessed and no immediate contiguous soft tissue posttraumatic like changes here are appreciated. These findings are indeterminate need clinical correlation. Patient's area of soft tissue swelling is over the lateral malleolus. No cortical fracture is appreciated. Inferior calcaneal spurring xr knee Other Rad Studies (CT/US): Read By Radiologist, Radiology Report Reviewed CT/US Interpretation: Accession No. : [id number]. Patient Name / ID : JAC Owens / [id number]. Exam Date : 01/09/2018 14:15:28 ( Approved ). Study Comment : Sex / Age : F / 67Y. Creator : Lynette Cruz. Dictator : Lynette Griffin. Founder / Ceo : Carbonation Equipment Operator : Lynette Griffin. Approver2 : Report Date : 01/09/2018 15:57:44. My Comment : . PROCEDURE: Left Knee Radiographs. HISTORY: Pain. COMPARISON: None. FINDINGS: BONES: No cortical fracture noted. A well corticated 4 mm ossification projects over the anterior and lateral aspect of the knee joint its chronicity is unknown. JOINTS: Minimal tibial spine spurring consistent with minimal osteoarthrosis. JOINT EFFUSION: None. OTHER FINDINGS: None. IMPRESSION: Minimal osteoarthrosis. Possible loose body anterior lateral femoral tibial joint space sacrum and coccyx Other Rad Studies (CT/US): Read By Radiologist, Radiology Report Reviewed CT/US Interpretation: Accession No. : [id number]. Patient Name / ID : JAC Owens / [id number]. Exam Date : 01/09/2018 14:15:44 ( Approved ). Study Comment : Sex / Age : F / 67Y. Creator : Lynette Cruz. Dictator : Lynette Griffin. Founder / Ceo : Carbonation Equipment Operator : Lynette Griffin. Approver2 : Report Date : 01/09/2018 15:55:59. My Comment : . PROCEDURE: Radiographs of the Sacrum and Coccyx. HISTORY: fall on tailbone. COMPARISON: None available. TECHNIQUE: Frontal and lateral views of the sacrum and coccyx. FINDINGS: BONES: Sacrum and coccyx unremarkable. No fracture or focal lesion. Evaluation of the coccyx however is limited. SACROILIAC JOINTS: Unremarkable. OTHER FINDINGS: Right hemipelvic phleboliths suggested. Bilateral hip arthrosis suggested. IMPRESSION: No definitive fracture of the sacrum noted. Limited evaluation of the coccyx. hip/pelvis XR Other Rad Studies (CT/US): Read By Radiologist, Radiology Report Reviewed CT/US Interpretation: Accession No. : [id number]. Patient Name / ID : JAC Owens / [id number]. Exam Date : 01/09/2018 14:14:41 ( Approved ). Study Comment : Sex / Age : F / 67Y. Creator : Niyah Stiles MD. Dictator : Niyah Stiles MD. Founder / Ceo : Carbonation Equipment Operator : Niyah Stiles MD. Approver2 : Report Date : 01/09/2018 15:38:22. My Comment : . PROCEDURE: Left Hip X-ray Radiographs. HISTORY: hip injury, fall. COMPARISON: None. FINDINGS: BONES: The pelvic ring is intact. There is no acute displaced fracture or bone destruction. Bone mineralization is normal. JOINTS: There is mild degenerative osteoarthrosis in the hip joints. There is mild osteitis pubis. SOFT TISSUES: Normal. OTHER FINDINGS: There are few phleboliths in the pelvis. IMPRESSION: No acute displaced fracture or dislocation.Please note occult fractures cannot be excluded on plain radiographs. If there is a persistent clinical concern, an MRI of the hip may be performed for further evaluation. Medical Decision Making Medical Decision Making: Immobilizer placed by scrub tech. Pt instructed in walker, walking Disposition - Disposition Referrals: [facility] [Outside] Disposition: HOME/ ROUTINE Disposition Time: 16:52 Condition: GOOD Additional Instructions: Follow up with the medical doctor/clinic within 1-2 days. Return if worsened. Prescriptions: traMADol [Ultram] 50 mg PO Q6 PRN #10 tab PRN Reason: Pain Instructions: Knee Sprain (DC) Forms: [employer] (Anguillan) Print Language: SAMMARINESE - Clinical Impression Clinical Impression: Knee contusion, Back contusion, Ankle sprain - Scribe Statement The provider has reviewed the documentation as recorded by the Scribe (Ilia Horn) All medical record entries made by the Scribe were at my direction and personally dictated by me. I have reviewed the chart and agree that the record accurately reflects my personal performance of the history, physical exam, medical decision making, and the department course for this patient. I have also personally directed, reviewed, and agree with the discharge instructions and disposition.
[2018-01-09 15:40] VITALS: PULSE 62; RESP 18; TEMP 98.8
--- NOTE | 2018-01-09 15:40 | RAD ---
PROCEDURE: Left Hip X-ray Radiographs. HISTORY: hip injury, fall COMPARISON: None. FINDINGS: BONES: The pelvic ring is intact. There is no acute displaced fracture or bone destruction. Bone mineralization is normal. JOINTS: There is mild degenerative osteoarthrosis in the hip joints. There is mild osteitis pubis. SOFT TISSUES: Normal. OTHER FINDINGS: There are few phleboliths in the pelvis. IMPRESSION: No acute displaced fracture or dislocation.Please note occult fractures cannot be excluded on plain radiographs. If there is a persistent clinical concern, an MRI of the hip may be performed for further evaluation.
--- NOTE | 2018-01-09 15:55 | RAD ---
PROCEDURE: Left Ankle Radiographs. HISTORY: injury, pain lateral ankle COMPARISON: None FINDINGS: BONES: 2 x 4 mm well corticated ossification projects posterior to the tibia and fibula on the lateral view at the ankle joint level -a discrete donor site is not appreciated. The soft tissues here do not appear particularly edematous or swollen and Kager's fat-pad appears preserved. Lateral perimalleolar soft tissue swelling noted. The position of this well corticated ossification in that the other views is difficult to confirm with certainty. Inferior calcaneal spurring JOINTS: No significant appearing osteoarthritis. Ankle mortise maintained. Talar dome grossly intact SOFT TISSUES: As above OTHER FINDINGS: None. IMPRESSION: 2 x 4 mm well corticated ossification projects posterior to the tibia and fibula on the lateral view at the ankle joint level -a discrete donor site is not appreciated. The soft tissues here do not appear particularly edematous or swollen and Kager's fat-pad appears preserved. Lateral perimalleolar soft tissue swelling noted. The position of this well corticated ossification in that the other views is difficult to confirm with certainty. This may be a chronic finding -a donor site for an avulsed fracture fragment is not assessed and no immediate contiguous soft tissue posttraumatic like changes here are appreciated. These findings are indeterminate need clinical correlation. Patient's area of soft tissue swelling is over the lateral malleolus. No cortical fracture is appreciated. Inferior calcaneal spurring
--- NOTE | 2018-01-09 15:57 | RAD ---
PROCEDURE: Radiographs of the Sacrum and Coccyx HISTORY: fall on tailbone COMPARISON: None available. TECHNIQUE: Frontal and lateral views of the sacrum and coccyx FINDINGS: BONES: Sacrum and coccyx unremarkable. No fracture or focal lesion. Evaluation of the coccyx however is limited SACROILIAC JOINTS: Unremarkable. OTHER FINDINGS: Right hemipelvic phleboliths suggested Bilateral hip arthrosis suggested IMPRESSION: No definitive fracture of the sacrum noted. Limited evaluation of the coccyx.
--- NOTE | 2018-01-09 15:59 | RAD ---
PROCEDURE: Left Knee Radiographs. HISTORY: Pain. COMPARISON: None. FINDINGS: BONES: No cortical fracture noted. A well corticated 4 mm ossification projects over the anterior and lateral aspect of the knee joint its chronicity is unknown. JOINTS: Minimal tibial spine spurring consistent with minimal osteoarthrosis JOINT EFFUSION: None. OTHER FINDINGS: None. IMPRESSION: Minimal osteoarthrosis. Possible loose body anterior lateral femoral tibial joint space
[2018-01-09 17:07] VITALS: BP 149/82
[2018-01-09 19:36] VITALS: O2SAT 98
== END 2018-01-09 17:07 | disposition home or self-care (01) ==
LOC: C.ER 13:34
DX: S80.02XA Contusion of left knee, initial encounter (principal); S93.409A Sprain of unspecified ligament of unspecified ankle, initial encounter; S30.0XXA Contusion of lower back and pelvis, initial encounter; W01.0XXA Fall on same level from slipping, tripping and stumbling without subsequent striking against object, initial encounter; E78.00 Pure hypercholesterolemia, unspecified; I12.9 Hypertensive chronic kidney disease with stage 1 through stage 4 chronic kidney disease, or unspecified chronic kidney disease; N18.9 Chronic kidney disease, unspecified; E03.9 Hypothyroidism, unspecified
CPT/HCPCS: 72220; 73502; 73562; 73610; 97116; 97161; 99285; G8978; G8979; G8980

== ENCOUNTER 2018-03-02 14:59 | Inpatient (IN) | payer MEDICAID, OTHER ==
[2018-03-02 14:59] VITALS: BMI 34.4
--- NOTE | 2018-03-02 15:42 | C.PDOC ---
History Of Present Illness 67 year old female presents to ED c/o worsening left side chest pain for the last 3 days, worse today. 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 Left side chest pain is intermittent, sharp, localized now more intense. No nausea, vomiting. Pt has intermittent chest pain but more intense than prior. Also complains of persistent headache for the past week. History of chronic, intermittent headache for many years but current headache more intense than usual. No relief with Aleve, no pain meds taken today. No trauma, other associated symptoms. History of vertigo but takes Meclizine only as needed, last episode 12/2017. POOR HISTORIAN VIA TRANS CO WORSENING L CP X 3 DAYS, WORSE TODAY. 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 L CP INTERMIT, SHARP LOCALIZED NOW MORE INTENSE. NO NV. PS HAS INTERMIT CP BUT CURRENT CP MORE INTENSE THAN PRIOR. ALSO CO PERSIST MONSON X 1 WEEK. HO CHRONIC, INTERMIT MONSON "MANY YEARS" BUT CURRENT MONSON MORE INTENSE THAN USUAL. NO RELIEF W ALEVE NO PAIN MEDS TAKEN TODAY. NO TRAUMA, OTHER ASSOC SX. HO VERTIGO BUT TAKES MECLIZINE "ONLY NEEDED", LAST EPISODE 12/2017. PMHx HTN, Hypercholesterolemia, Kidney Stones, Vertigo EXAM MILD DIST NONTOXIC HEENT ATRAUM NO PHOTOPHOBIA NECK SUPPLE LUNGS CTA B/L NO W/R/R CV RRR NEURO NO FOCAL DEF REMAINDER NEG MDM S/P ECHO, BRAIN MRI [id number]. REPORTS REVIEWED. 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 History/Exam Limitations: no limitations Recent travel outside of the [place]: No Additional History Per: Patient Past Medical History Reviewed: Historical Data, Nursing Documentation, Vital Signs Vital Signs: Last Vital Signs Temp 98.9 F 03/02/18 17:06 Pulse 73 03/02/18 17:06 Resp 18 03/02/18 17:06 BP 134/73 03/02/18 17:06 Pulse Ox 99 03/02/18 17:06 - Medical History PMH: Atrial Fibrillation (?), Depression, HTN, Hypercholesterolemia, Hypothyroidism, Kidney Stones, Chronic Kidney Disease Surgical History: Appendectomy - [facility] Procedures INJECT/INFUSE NEC (08/22/14) INTRODUCTION OF SERUM/TOX/VACCINE INTO MUSCLE, PERC APPROACH (09/04/16) UMBIL HERNIA REPAIR NEC (07/21/98) Family History: States: Hypertension - Social History Hx Tobacco Use: No Hx Alcohol Use: No Hx Substance Use: No - Immunization History Hx Tetanus Toxoid Vaccination: Yes Hx Influenza Vaccination: Yes Hx Pneumococcal Vaccination: Yes Review Of Systems Except As Marked, All Systems Reviewed And Found Negative. Constitutional: Negative for: Fever, Chills Cardiovascular: Positive for: Chest Pain, Light Headedness Respiratory: Negative for: Cough, Shortness of Breath Gastrointestinal: Negative for: Nausea, Vomiting, Abdominal Pain Neurological: Positive for: Headache. Negative for: Weakness, Numbness, Dizziness Physical Exam - Physical Exam Appears: Non-toxic, Other (mild distress) Skin: Normal Color, Warm, Dry Head: Atraumatic, Normacephalic Eye(s): bilateral: Normal Inspection, Other (no photophobia) Oral Mucosa: Moist, No Drooling Neck: Normal ROM, Supple Cardiovascular: Rhythm Regular, No Murmur Respiratory: Normal Breath Sounds, No Rales, No Rhonchi, No Stridor, No Wheezing , Other (Speaking in full sentences without difficulty) Gastrointestinal/Abdominal: Soft, No Tenderness Extremity: Normal ROM Neurological/Psych: Oriented x3, Normal Speech, No Other (no focal deficits) ED Course And Treatment - Laboratory Results Result Diagrams: 03/02/18 16:04 03/02/18 16:04 ECG: Interpreted By Me ECG Rhythm: Sinus Rhythm ECG Interpretation: Normal Rate From EC O2 Sat by Pulse Oximetry: 99 Pulse Ox Interpretation: Normal - Radiology CXR: Interpreted by Me CXR Interpretation: Yes: No Acute Disease Progress - Re-Evaluation Re-evaluation Note: 03/02/18 16:03 DAUGHTER STATES PT W DIFFICULTY SWALLOWING LIQUID. HO INCREASING DIFFICULTY SWALLOWING LIQUIDS AND SOLIDS X SEV MONTH, "WE WERE SUPPOSED TO BE SEEN BY GI BUT THEY KEPT RESCHEDULING THE APPOINTMENTS", GI APPT PENDING 2-3 WEEKS. LAST ABLE TO EAT SOLID MEAL AND DRINK LIQUID YEST. PT DENIES PO INTAKE TODAY "BC I CAN'T GET IT TO GO DOWN". DENIES WT LOSS. PS WHEN SWALLOWS SOLIDS, "FEELS LIKE IT GETS STUCK IN MIDDLE". "NOT BAD W LIQUIDS BUT IT HAPPENS THEN TOO". SWALLOW SCREEN FAIL 03/02/18 17:28 vss d/w dr MITCHELL WILL ADMIT - Data Reviewed Data Reviewed: Lab, Diagnostic imaging, EKG, Old records Medical Decision Making Medical Decision Making: Plan: Blood work Urinalysis CXR EKG Decadron Magnesium Sulfate Nitroglycerin Depacon IV fluids S/P ECHO, BRAIN MRI [id number]. REPORTS REVIEWED. NO DOCUMENTED STRESS TEST OR CATH Disposition Counseled Patient/Family Regarding: Studies Performed, Diagnosis - Disposition Disposition: HOSPITALIZED Disposition Time: 17:28 Condition: STABLE Forms: [employer] (Lao) - POA Present On Arrival: Falls Or Trauma - Clinical Impression Clinical Impression: Syncope, Chest pain, Dysphagia - Scribe Statement The provider has reviewed the documentation as recorded by the Scribe KP All medical record entries made by the Scribe were at my direction and personally dictated by me. I have reviewed the chart and agree that the record accurately reflects my personal performance of the history, physical exam, medical decision making, and the department course for this patient. I have also personally directed, reviewed, and agree with the discharge instructions and disposition. Decision To Admit - Pt Status Changed To: Hospital Disposition Of: Inpatient - Admit Certification Admit to Inpatient:: After my assessment, the patient will require hospitalization for at least two midnights. This is because of the severity of symptoms shown, intensity of services needed, and/or the medical risk in this patient being treated as an outpatient. - InPatient: Physician Admission Certification: I certify that this patient requires 2 or more midnights of care for the following reason:: SEE NOTE - . Bed Request Type: Telemetry Admitting Physician: Pablo Mitchell Patient Diagnosis: Syncope, Chest pain, Dysphagia
[2018-03-02] MEDS ORDERED: Sodium Chloride 0.9% 1,000 ML IV ONE ×2 (15:43→16:09)
[2018-03-02] MEDS ORDERED: Magnesium Sulfate 1 gm in D5W 1 GM/100 ML BAG IVPB STA (15:59)
[2018-03-02] MEDS ORDERED: Dexamethasone 4 mg/1 ml IVP STA (15:59)
[2018-03-02] MEDS ORDERED: Magnesium Sulfate 1 gm in D5W 1 GM/100 ML BAG IVPB ONE (16:14)
[2018-03-02] MEDS ORDERED: Sodium Chloride 0.9% 1,000 ML ONE ×2 (16:14→16:43)
[2018-03-02] MEDS ORDERED: Dexamethasone 4 mg/1 ml ONE (16:15)
[2018-03-02 16:20] LABS: BASO % 0.5 % (0.0-2.0); EOS # 0.1 K/uL (0.0-0.7); EOS % 1.7 % (0.0-4.0); HEMOGLOBIN 14.1 g/dL (11.0-16.0); LYMPH # 1.4 K/uL (1.0-4.3); LYMPH % 17.4 % (20.0-40.0); MEAN CORPUSCULAR HEMOGLOBIN 31.6 pg (27.0-31.0); MEAN CORPUSCULAR HGB CONC 35.1 g/dL (33.0-37.0); MEAN PLATELET VOLUME 9.5 fL (7.2-11.7); MONO # 0.5 K/uL (0.0-0.8); MONO % 5.9 % (0.0-10.0); NEUT # 5.8 K/uL (1.8-7.0); NEUT % 74.5 % (50.0-75.0); NRBC % 0.1 % (0.0-2.0); RBC 4.46 Mil/uL (3.80-5.20); RED CELL DISTRIBUTION WIDTH 12.8 % (11.5-14.5); WHITE BLOOD COUNT 7.8 K/uL (4.8-10.8)
[2018-03-02 16:21] LABS: ALB/GLOB RATIO 1.6 (1.0-2.1); ALBUMIN 4.9 g/dL (3.5-5.0); ALT/SGPT 43 U/L (9-52); AST/SGOT 29 U/L (14-36); BLOOD UREA NITROGEN 17 mg/dL (7-17); CALCIUM 10.1 mg/dl (8.6-10.4); GFR AFRICAN-AMERICAN > 60; GFR NON-AFRICAN AMERICAN > 60
--- NOTE | 2018-03-02 16:57 | CT ---
Date of service: 03/02/2018 PROCEDURE: CT HEAD WITHOUT CONTRAST. HISTORY: SYNCOPE COMPARISON: Noncontrast head CT 09/13/2017. TECHNIQUE: Axial computed tomography images were obtained through the head/brain without intravenous contrast. Radiation dose: Total exam DLP = 834.60 mGy-cm. This CT exam was performed using one or more of the following dose reduction techniques: Automated exposure control, adjustment of the mA and/or kV according to patient size, and/or use of iterative reconstruction technique. FINDINGS: HEMORRHAGE: No intracranial hemorrhage. BRAIN: Trace periventricular and subcortical chronic microangiopathy type white-matter changes are appreciated at the cerebrum. Good corticomedullary differentiation remains. There is no mass effect hydrocephalus or suspicious extra-axial collection identified. There is no suspicious density in the posterior fossa contents with the brainstem normal-appearing. No significant interval change is identified. VENTRICLES: Unremarkable. No hydrocephalus. CALVARIUM: Unremarkable. PARANASAL SINUSES: Unremarkable as visualized. No significant inflammatory changes. MASTOID AIR CELLS: Unremarkable as visualized. No inflammatory changes. OTHER FINDINGS: None. IMPRESSION: Stable nonacute noncontrast head CT as compared to prior head CT 10/03/2017. Very limited age-related degenerative changes are reiterated. Follow-up CT or MRI are available if clinically warranted.
--- NOTE | 2018-03-02 17:16 | CT ---
Date of service: 03/02/2018 PROCEDURE: CT Chest without contrast HISTORY: DIFFICULTY SWALLOWING COMPARISON: None. TECHNIQUE: Contiguous axial images were obtained through the chest without intravenous contrast enhancement. Sagittal and coronal reconstructions were performed. Radiation dose (DLP): 388.40 mGy-cm. This CT exam was performed using one or more of the following dose reduction techniques: Automated exposure control, adjustment of the mA and/or kV according to patient size, and/or use of iterative reconstruction technique. FINDINGS: LUNGS: There is a 4.7 mm noncalcified subpleural nodule at the left lower lobe approaching costophrenic sulcus. No additional mass. No infiltrate. No central airway lesion. MEDIASTINUM: Thoracic inlet is remarkable for a small lucency at the right thyroid lobe with the left thyroid lobe nonfocal. Mild thoracic aortic aneurysm at the ascending segment measuring 4.0 cm just distal to the root terminating in the proximal arch which measures 3.5 cm. Normal sized heart. Main pulmonary artery unremarkable. No vascular congestion. The esophagus appears normal caliber throughout the mediastinum with the lumen completely collapsed and not evaluated. No evidence to suggest esophageal obstruction. There is a small hiatal hernia identified just proximal to the diaphragmatic hiatus. PLEURA: No pleural fluid. No pneumothorax. BONES: No fracture. No destructive lesion. UPPER ABDOMEN: Intrarenal calculi identified in the upper pole bilateral kidneys which are nonobstructive. Cortical infarct also on the upper pole right kidney. OTHER FINDINGS: None. IMPRESSION: 1. No suspicious mediastinal findings including the esophagus which is collapsed and normal in caliber although there is small hiatal hernia. 2. 4.7 mm noncalcified subpleural nodule left lower lobe. Follow-up chest CT advised 1 year to demonstrate stability unless already proven benign. Lung rads 2 3. Mild ascending thoracic aortic aneurysm 4.0 cm greatest dimension. 4. Incidental right thyroid lobe nodule. 5. Bilateral intrarenal calculi upper pole kidneys. Right renal cortical infarct upper pole.
--- NOTE | 2018-03-02 17:24 | RAD ---
Date of service: 03/02/2018 PROCEDURE: CHEST RADIOGRAPH, 1 VIEW HISTORY: chest pain COMPARISON: Frontal chest radiograph 09/13/2017. FINDINGS: LUNGS: No interval pulmonary disease appreciated bilaterally. PLEURA: No pneumothorax or pleural fluid seen. CARDIOVASCULAR: Normal. OSSEOUS STRUCTURES: No significant abnormalities. VISUALIZED UPPER ABDOMEN: Normal. OTHER FINDINGS: None. IMPRESSION: No interval acute cardiopulmonary disease appreciated.
--- NOTE | 2018-03-02 18:55 | CP.PCM.HP ---
History of Present Illness - History of Present Illness History of Present Illness: H&P for Hospitalist Service This 66 y/o female with PMHx HTN, Hypercholesterolemia, sleep apnea, Kidney Stones, dysphagia, Vertigo, and recently diagnosed DMII presenting to the ED with c/o chest pain x 2 weeks. During this time the pain was relapsing-remitting , without any specifically identifiable exacerbating factor. The pain is localized to the left side of the chest, without radiation and described as pulsating. She neglected the pain and it resolved on its own. The pain then returned this week and it has been constant for the past 3 days. She admitted to associated palpitations and episodes of shortness of breath not related to exertion. This morning she was attending buddhism, which was hot without air conditioning, and was standing for an extended period of time. At buddhism, she experienced worsening chest pain and palpitations, became lightheaded and syncopized. She states she did not eat breakfast before buddhism. Patient states she sleeps with 2 pillows and can walk 2 blocks before getting out of breath. In addition to the chest pain she is complaining of worsening dysphagia. She has a hx of dysphagia in relation to solid foods for the past few months, however today she notes dysphagia in relation to liquids, which is atypical for her. States she has a constant feeling that something is stuck in her throat. She has an appointment with a GI specialist in 5 days. Patient denies fever, chills, nausea, vomiting, abdominal pain, diarrhea, bloody stools, recent travel , and recent sickness. 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 Past Patient History - Infectious Disease Hx of Infectious Diseases: None - Tetanus Immunizations Tetanus Immunization: Unknown - Past Medical History & Family History Past Medical History?: Yes - Past Social History Smoking Status: Never Smoked - CARDIAC Hx Atrial Fibrillation: Yes (?) Hx Hypercholesterolemia: Yes Hx Hypertension: Yes - PULMONARY Hx Respiratory Disorders: No - NEUROLOGICAL Hx Neurological Disorder: Yes Hx Dizziness: Yes - HEENT Hx HEENT Problems: Yes Hx Cataracts: Yes (BILAT.) - RENAL Hx Chronic Kidney Disease: Yes Hx Kidney Stones: Yes - ENDOCRINE/METABOLIC Hx Hypothyroidism: Yes - INTEGUMENTARY Hx Dermatological Problems: No - MUSCULOSKELETAL/RHEUMATOLOGICAL Hx Musculoskeletal Disorders: Yes Other/Comment: HX: UMBILICAL HERNIA - GASTROINTESTINAL Hx Gastrointestinal Disorders: No - GENITOURINARY/GYNECOLOGICAL Hx Genitourinary Disorders: No - PSYCHIATRIC Hx Depression: Yes Hx Substance Use: No - SURGICAL HISTORY Hx Appendectomy: Yes - ANESTHESIA Hx Anesthesia: Yes Hx Anesthesia Reactions: No Hx Malignant Hyperthermia: No Meds Allergies/Adverse Reactions: Allergies Allergy/AdvReac Type Severity Reaction Status Date / Time ibuprofen Allergy Mild RASH Verified 09/20/17 19:01 Results - Vital Signs Recent Vital Signs: Last Vital Signs Temp 98.5 F 03/02/18 18:32 Pulse 71 03/02/18 18:32 Resp 16 03/02/18 18:32 BP 162/77 H 03/02/18 18:32 Pulse Ox 100 03/02/18 18:32 - Labs Result Diagrams: 03/02/18 16:04 03/02/18 16:04 Labs: Laboratory Results - last 24 hr 03/02/18 03/02/18 16:04 16:04 WBC 7.8 RBC 4.46 Hgb 14.1 Hct 40.2 MCV 90.0 MCH 31.6 H MCHC 35.1 RDW 12.8 Plt Count 200 MPV 9.5 Neut % (Auto) 74.5 Lymph % (Auto) 17.4 L [place] % (Auto) 5.9 Eos % (Auto) 1.7 Baso % (Auto) 0.5 Neut # (Auto) 5.8 Lymph # (Auto) 1.4 [place] # (Auto) 0.5 Eos # (Auto) 0.1 Baso # (Auto) 0.0 Sodium 142 Potassium 4.0 Chloride 99 Carbon Dioxide 30 Anion Gap 17 BUN 17 Creatinine 0.8 Est GFR ( Amer) > 60 Est GFR (Non-Af Amer) > 60 Random Glucose 143 H Calcium 10.1 Magnesium 1.5 L Total Bilirubin 0.5 AST 29 ALT 43 Alkaline Phosphatase 86 Troponin I < 0.0120 Total Protein 8.1 Albumin 4.9 Globulin 3.1 Albumin/Globulin Ratio 1.6 Assessment & Plan - Assessment and Plan (Free Text) Plan: Chest pain with syncope * Consult placed to cardiology- Dr. Ch * CT head- negative * EKG- * CXR- no acute pathologies noted; see full report * f/u Echo * Previous Echo 02/2017- * hold home meds in setting of dysphagia- HOLD-ASA 81, Lisinopril 20mg PO qd, Lipitor 10mg PO qd Dysphagia- worsening from baseline; now involving liquids * Follow up swallow eval * GI Consult being considered Hypercholesterolema * HOLD home med Lipitor 10mg PO qd due to dysphagia * f/u lipid panel Left Knee Pain * Recent mechanical fall * Xray of left knee 02/19/18 reviewed- no fracture; arthritic changes HTN DMII- newly diagnosed * HGB A1C- 7.0 in 11/2017 * Lipid panel: * Glucose on admission: * Fingersticks ACHS * ISS- low dose Prophylaxis * SCD C/I * NPO for dysphagia * GI PPX: * DVT PPX:
[2018-03-02 19:00] LABS: SQUAMOUS EPITHIAL 1 /hpf (0-5); URINE BACTERIA RARE (<OCC); URINE BILIRUBIN NEGATIVE (NEGATIVE); URINE BLOOD NEGATIVE (NEGATIVE); URINE CLARITY Clear (Clear); URINE COLOR Straw (YELLOW); URINE GLUCOSE (UA) NORMAL (Normal); URINE LEUKOCYTE ESTERASE TRACE Leu/uL (Negative); URINE PROTEIN NEGATIVE (NEGATIVE); URINE UROBILINOGEN NORMAL mg/dL (0.2-1.0)
[2018-03-02] MEDS ORDERED: Metoprolol 1 mg/ml Inj IVP PRN (20:34)
[2018-03-02] MEDS ORDERED: Dextrose 50% SYRINGE Inj (50 ml) IV PRN (20:44)
[2018-03-02] MEDS ORDERED: Glucagon Recombinant 1 mg Inj IM PRN (20:44)
[2018-03-02] MEDS ORDERED: Dextrose 5%/0.45% NS 1,000 ML IV SCH ×2 (20:45→22:45)
--- NOTE | 2018-03-02 21:12 | CP.PCM.HP ---
<Savanna Vasquez P - Last Filed: 03/02/18 22:35> History of Present Illness - History of Present Illness History of Present Illness: H&P for Hospitalist Service This 67 y/o female with PMHx HTN, Hypercholesterolemia, sleep apnea, Kidney Stones, dysphagia, Vertigo, hypothyroidism (not on meds) and recently diagnosed DM II presenting to the ED with c/o chest pain x 2 weeks. During this time the pain was relapsing-remitting, without any specifically identifiable exacerbating factor. The pain is localized to the left side of the chest, without radiation and described as pulsating. She neglected the pain and it resolved on its own. The pain then returned this week and it has been constant for the past 3 days. She admitted to associated palpitations and episodes of shortness of breath not related to exertion. This morning she was attending [employer], which was hot without air conditioning, and was standing for an extended period of time. At [employer], she experienced worsening chest pain and palpitations, became lightheaded and syncopized. She states she did not eat breakfast before moravian. Patient states she sleeps with 2 pillows and can walk 2 blocks before experiencing shortness of breath. In addition to the chest pain she is complaining of worsening dysphagia. She has a hx of dysphagia in relation to solid foods for the past few months, however today she notes dysphagia in relation to liquids, which is atypical for her. States she has a constant feeling that something is stuck in her throat. She has an appointment with a GI specialist in 5 days. Patient denies fever, chills, nausea, vomiting, abdominal pain, diarrhea, bloody stools, recent travel , and recent sickness, focal weakness, . PMD: [facility] PMHx: HTN, Hypercholesterolemia, sleep apnea (does not use C-pap), Kidney Stones , Vertigo, hypothyroidism (not on meds), and recently diagnosed DMII PSHx: Appendectomy, hernia repair, cataract surgery (12/2017) Meds: ASA 81mg PO daily; Lisinopril 20mg PO daily; HCTZ 12.5mg PO daily, Simvastatin 20mg PO daily, Metformin 500 bid, Gabapentin 100mg PO daily, Meclizine 12.5mg daily, oxybutynin (unknown dose) Allergies: Ibuprofen FamHx: Mother: HTN, [place] ( at 62); Father: CAD SocHx: Quit smoking 20 years ago, 1 cigarette/day x 25yrs; Denies ETOH or drug use; Lives in 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 Present on Admission - Present on Admission Any Indicators Present on Admission: No Review of Systems - Constitutional Constitutional: Sleep Apnea. absent: Chills, Excessive Sweating, Fever, Headache, Increased Appetite, Weight Loss - EENT Eyes: Blurred Vision (chronic). absent: Floaters, Irritation, Itchy Eyes, Loss of Peripheral Vision Ears: Dizziness. absent: Decreased Hearing - Cardiovascular Cardiovascular: Chest Pain, Lightheadedness, Orthopnea. absent: Leg Edema, Palpitations - Respiratory Respiratory: Dyspnea. absent: Cough, Hemoptysis, Wheezing, Chest Congestion - Gastrointestinal Gastrointestinal: absent: Cramping, Diarrhea, Fecal Incontinence, Hematemesis, Melena, Vomiting - Genitourinary Genitourinary: Voiding Freq/Small Amts. absent: Hematuria, Pyuria - Musculoskeletal Additional comments: hip pain, L knee pain from a fall 1.5 months ago - Neurological Neurological: Dizziness, Headaches (chronic), Syncope. absent: Confusion, Numbness, Focal Weakness, Frequent Falls, Tingling Past Patient History - Infectious Disease Hx of Infectious Diseases: None - Tetanus Immunizations Tetanus Immunization: Unknown - Past Medical History & Family History Past Medical History?: Yes - Past Social History Smoking Status: Never Smoked - CARDIAC Hx Atrial Fibrillation: Yes (?) Hx Hypercholesterolemia: Yes Hx Hypertension: Yes - PULMONARY Hx Respiratory Disorders: No - NEUROLOGICAL Hx Neurological Disorder: Yes Hx Dizziness: Yes - HEENT Hx HEENT Problems: Yes Hx Cataracts: Yes (BILAT.) - RENAL Hx Chronic Kidney Disease: Yes Hx Kidney Stones: Yes - ENDOCRINE/METABOLIC Hx Hypothyroidism: Yes - INTEGUMENTARY Hx Dermatological Problems: No - MUSCULOSKELETAL/RHEUMATOLOGICAL Hx Musculoskeletal Disorders: Yes Hx Falls: No Other/Comment: HX: UMBILICAL HERNIA - GASTROINTESTINAL Hx Gastrointestinal Disorders: No - GENITOURINARY/GYNECOLOGICAL Hx Genitourinary Disorders: No - PSYCHIATRIC Hx Depression: Yes Hx Substance Use: No - SURGICAL HISTORY Hx Appendectomy: Yes - ANESTHESIA Hx Anesthesia: Yes Hx Anesthesia Reactions: No Hx Malignant Hyperthermia: No Meds Allergies/Adverse Reactions: Allergies Allergy/AdvReac Type Severity Reaction Status Date / Time ibuprofen Allergy Mild RASH Verified 09/20/17 19:01 Physical Exam - Head Exam Head Exam: ATRAUMATIC, NORMOCEPHALIC - Eye Exam Eye Exam: EOMI, Normal appearance, PERRL Pupil Exam: NORMAL ACCOMODATION - ENT Exam ENT Exam: Mucous Membranes Moist - Respiratory Exam Respiratory Exam: Clear to Auscultation Bilateral, NORMAL BREATHING PATTERN. absent: Rales, Rhonchi, Wheezes - Cardiovascular Exam Cardiovascular Exam: REGULAR RHYTHM, +S1, +S2, Systolic Murmur - GI/Abdominal Exam GI & Abdominal Exam: Normal Bowel Sounds, Soft, Tenderness (left lower abdomen pain from fall 1.5 months ago). absent: Distended, Guarding - Extremities Exam Extremities exam: Positive for: normal capillary refill, normal inspection, tenderness (to palpation of L knee), pedal pulses present. Negative for: calf tenderness, pedal edema - Neurological Exam Neurological exam: Alert, CN II-XII Intact, Oriented x3 - Psychiatric Exam Psychiatric exam: Normal Mood - Skin Skin Exam: Dry, Normal Color, Warm Results - Vital Signs Recent Vital Signs: Last Vital Signs Temp 98.5 F 03/02/18 18:32 Pulse 80 03/02/18 20:33 Resp 16 03/02/18 18:32 BP 162/77 H 03/02/18 18:32 Pulse Ox 100 03/02/18 18:32 - Labs Result Diagrams: 03/02/18 16:04 03/02/18 16:04 Labs: Laboratory Results - last 24 hr 03/02/18 03/02/18 03/02/18 16:04 16:04 18:51 WBC 7.8 RBC 4.46 Hgb 14.1 Hct 40.2 MCV 90.0 MCH 31.6 H MCHC 35.1 RDW 12.8 Plt Count 200 MPV 9.5 Neut % (Auto) 74.5 Lymph % (Auto) 17.4 L [place] % (Auto) 5.9 Eos % (Auto) 1.7 Baso % (Auto) 0.5 Neut # (Auto) 5.8 Lymph # (Auto) 1.4 [place] # (Auto) 0.5 Eos # (Auto) 0.1 Baso # (Auto) 0.0 Sodium 142 Potassium 4.0 Chloride 99 Carbon Dioxide 30 Anion Gap 17 BUN 17 Creatinine 0.8 Est GFR ( Amer) > 60 Est GFR (Non-Af Amer) > 60 Random Glucose 143 H Calcium 10.1 Magnesium 1.5 L Total Bilirubin 0.5 AST 29 ALT 43 Alkaline Phosphatase 86 Troponin I < 0.0120 Total Protein 8.1 Albumin 4.9 Globulin 3.1 Albumin/Globulin Ratio 1.6 Urine Color Straw Urine Clarity Clear Urine pH 6.0 Ur Specific [place] 1.004 Urine Protein Negative Urine Glucose (UA) Normal Urine Ketones Trace Urine Blood Negative Urine Nitrate Negative Urine Bilirubin Negative Urine Urobilinogen Normal Ur Leukocyte Esterase Trace Urine WBC (Auto) 4 Urine RBC (Auto) 2 Ur Squamous Epith Cells 1 Urine Bacteria Rare Assessment & Plan - Assessment and Plan (Free Text) Plan: 67 year old F with PMHx of HTN, Hypercholesterolemia, sleep apnea, Kidney Stones , dysphagia, Vertigo, hypothyroidism (not on meds) and recently diagnosed DMII admitted for chest pain and syncope. Chest pain; palpitations Risk factors: DM, HTN, cholesterol, family hx, Age >50, former smoker DANIA: 4= 20% all cause mortality Consult placed to cardiology- Dr. Ch. Help appreciated EKG- NSR @ 73 CXR- no acute pathologies noted; see full report f/u Echo- check ao valve, syncope, HTN Previous Echo 02/2017- Left ventricular function is normal. Transmitral doppler flow pattern is grade1 abnormal relaxation pattern. LA is mildly dilated. Aortic valve is mildly sclerotic. Mitral regurgitation is trace. Mild TR hold home meds in setting of dysphagia- HOLD-ASA 81, Lisinopril 20mg PO qd, Simvastatin ASA 300mg ME daily Lopressor 5mg IV Q6H SBP >160 Nitro sublingual 0.4mg PRN chest pain O2 2L NC monitor telemetry Cardiac Enzymes Q6H and EKG x2 Hgb A1c, lipid panel TSH, free T4 Syncope CT head- negative Accuchecks Q6h D5 1/2NS 50cc/hr->stop at midnight Cardiac workup CT head: age related degenerative changes; see full report Orthostatics Dysphagia for months, worse from baseline dysphagia to solids now involving liquids, + globus sensation Failed bedside nursing swallow screen Swallow evaluation wait under cardiac workup prior to consulting GI. Pending outpatient appointment Saturday. NPO HTN Hold Lisinopril Lopressor 5mg IV Q6 sbp > 160 diet held until swalllow eval DM II Hgb A1C- 7.0 in 11/2017 Glucose on admission: 143 D5 1/2NS 50cc/hr->stop at midnight Hgb A1c: f/u lipid panel Accuchecks ACHS Q6 Hypogylcemic protocol hold statin, Lisinopril, Metformin due to fialed swallow screen Lipid disorder Hold home med Simvastatin 20mg PO qd due to dysphagia f/u lipid panel Sleep Apnea C-pap- Respiratory therapist to titrate Vertigo Hold Antivert Fall precautions Left Knee Pain Recent mechanical fall Xray of left knee 02/19/18 reviewed- no fracture; arthritic changes Hx of Mechanical Fall Fall precautions History of Nephrolithiasis No renal colic Prophylaxic Measures NPO for dysphagia GI PPX: Pepcid 20mg IVP Q12 Heparin 5000u SC Q8H PT/OT eval fall precautions <Marija Sumner V - Last Filed: 03/02/18 23:14> Results - Vital Signs Recent Vital Signs: Last Vital Signs Temp 98.3 F 03/02/18 21:31 Pulse 87 03/02/18 21:31 Resp 20 03/02/18 21:31 BP 133/79 03/02/18 21:31 Pulse Ox 97 03/02/18 21:31 - Labs Result Diagrams: 03/02/18 16:04 03/02/18 16:04 Labs: Laboratory Results - last 24 hr 03/02/18 03/02/18 03/02/18 16:04 16:04 18:51 WBC 7.8 RBC 4.46 Hgb 14.1 Hct 40.2 MCV 90.0 MCH 31.6 H MCHC 35.1 RDW 12.8 Plt Count 200 MPV 9.5 Neut % (Auto) 74.5 Lymph % (Auto) 17.4 L [place] % (Auto) 5.9 Eos % (Auto) 1.7 Baso % (Auto) 0.5 Neut # (Auto) 5.8 Lymph # (Auto) 1.4 [place] # (Auto) 0.5 Eos # (Auto) 0.1 Baso # (Auto) 0.0 Sodium 142 Potassium 4.0 Chloride 99 Carbon Dioxide 30 Anion Gap 17 BUN 17 Creatinine 0.8 Est GFR ( Amer) > 60 Est GFR (Non-Af Amer) > 60 Random Glucose 143 H Calcium 10.1 Magnesium 1.5 L Total Bilirubin 0.5 AST 29 ALT 43 Alkaline Phosphatase 86 Total Creatine Kinase CK-MB (Mass) Troponin I < 0.0120 Total Protein 8.1 Albumin 4.9 Globulin 3.1 Albumin/Globulin Ratio 1.6 Urine Color Straw Urine Clarity Clear Urine pH 6.0 Ur Specific [place] 1.004 Urine Protein Negative Urine Glucose (UA) Normal Urine Ketones Trace Urine Blood Negative Urine Nitrate Negative Urine Bilirubin Negative Urine Urobilinogen Normal Ur Leukocyte Esterase Trace Urine WBC (Auto) 4 Urine RBC (Auto) 2 Ur Squamous Epith Cells 1 Urine Bacteria Rare 03/02/18 22:24 WBC RBC Hgb Hct MCV MCH MCHC RDW Plt Count MPV Neut % (Auto) Lymph % (Auto) [place] % (Auto) Eos % (Auto) Baso % (Auto) Neut # (Auto) Lymph # (Auto) [place] # (Auto) Eos # (Auto) Baso # (Auto) Sodium Potassium Chloride Carbon Dioxide Anion Gap BUN Creatinine Est GFR ( Amer) Est GFR (Non-Af Amer) Random Glucose Calcium Magnesium Total Bilirubin AST ALT Alkaline Phosphatase Total Creatine Kinase 45 CK-MB (Mass) 0.43 Troponin I < 0.0120 Total Protein Albumin Globulin Albumin/Globulin Ratio Urine Color Urine Clarity Urine pH Ur Specific [place] Urine Protein Urine Glucose (UA) Urine Ketones Urine Blood Urine Nitrate Urine Bilirubin Urine Urobilinogen Ur Leukocyte Esterase Urine WBC (Auto) Urine RBC (Auto) Ur Squamous Epith Cells Urine Bacteria Attending/Attestation - Attestation I have personally seen and examined this patient.: Yes I have fully participated in the care of the patient.: Yes I have reviewed all pertinent clinical information: Yes Notes (Text): Patient seen, examined and case discussed with day-time resident. Patient seen in [facility] Bed 1 in the Emergency Room on 03/02/18 at approximately 6PM. Patient with medical hx including prior DE, sleep apnea, HTN, DM, obesity, neuropathy, vertigo, chronic dysphagia comes in following chest pain X2 days with associated palpitations exacerbated by witnessed syncopal episode in [employer]. Patient has prior hx of mechanical fall wherein she fell in split, was seen and evaluated in the clinic underwent xrays of knee wherein fracture was ruled out but has not recovered. Patient has pending outpatient GI initial evaluation for this upcoming Saturday. She reports she has been having dysphagia to solids, but was able to tolerate taking her pills including this morning but when she was in the Emergency Room she report choking sensation. Patient has chronic globus sensation. Patient reports last meal was yesterday morning. Patient reports chest pain, left sided, nonradiating, exacerbated by breathing, tender to palptation, no heavy lifting nor exercise regimen. Patient reports she took her medication this AM. Admitting orders discussed with the resident. Assessment and plan discussed with the resident. Assessment/Plan 1) Chest pain; palpitations Assessment/Plan * Risk factors: DM, HTN, cholesterol, family hx, Age >50, former smoker, prior history of personal DE * DANIA: 4= 20% all cause mortality * Consult placed to cardiology- Dr. Ch. Help appreciated * EKG- NSR @ 73 * CXR- no acute pathologies noted; see full report * f/u Echo- check aortic valve, syncope, HTN * Previous Echo 02/2017- Left ventricular function is normal. Transmitral doppler flow pattern is grade1 abnormal relaxation pattern. LA is mildly dilated. Aortic valve is mildly sclerotic. Mitral regurgitation is trace. Mild TR * Will hold home meds in setting of dysphagia- HOLD-ASA 81, Lisinopril 20mg PO qd, Simvastatin until she is evaluated by official swallow; possible consideration GI workup after cardio workup is completed * ASA 300mg ME daily * Lopressor 5mg IV Q6H SBP >160 * Nitro sublingual 0.4mg PRN chest pain * O2 2L NC * monitor telemetry * initial troponin: negative, Cardiac Enzymes Q6H and EKG x2 * Hgb A1c, lipid panel * TSH, free T4 2) Syncope Assessment/Plan * See assessment/plan #1' * CT head- negative * Accuchecks Q6h * D5 1/2NS 50cc/hr->stop at midnight * CT head: age related degenerative changes; see full report * Orthostatics 3) Dysphagia Assessment/Plan * for months, worse from baseline dysphagia to solids now involving liquids, + globus sensation * Failed bedside nursing swallow screen * Swallow evaluation * wait under cardiac workup prior to consulting GI. Pending outpatient appointment Saturday in the clinic. * NPO 4) Hypertension Assessment/Plan * Hold Lisinopril * Lopressor 5mg IV Q6 sbp > 160 * Diet held until swallow eval 5) DM II Assessment/Plan * Hgb A1C- 7.0 in 11/2017 * Glucose on admission: 143 * D5 1/2NS 50cc/hr->stop at midnight * Hgb A1c: f/u * lipid panel in AM * Accuchecks ACHS Q6 * Hypogylcemic protocol * hold statin, Lisinopril, Metformin due to failed swallow screen 6) Lipid disorder Assessment/Plan * Hold home med Simvastatin 20mg PO qd due to dysphagia * f/u lipid panel 7) Sleep Apnea Assessment/Plan * C-pap- Respiratory therapist to titrate * Patient does not use CPAP at night; unable to afford it; has had sleep study to diagnose 8) History of Vertigo * Hold Antivert until official swallow eval * Fall precautions 9) Left Knee Pain * Recent mechanical fall * Xray of left knee 02/19/18 reviewed- no fracture; arthritic changes 10) Hx of Mechanical Fall * Fall precautions 11) History of Nephrolithiasis * No renal colic at this time 12) Prophylaxic Measures * NPO for dysphagia * GI PPX: Pepcid 20mg IVP Q12 * Heparin 5000u SC Q8H * PT/OT eval * fall precautions
[2018-03-02 21:32] VITALS: RESP 20
[2018-03-02 22:52] LABS: CK-MB 0.43 ng/mL (0.0-3.38)
[2018-03-03 07:48] LABS: BASO % 0.1 % (0.0-2.0); EOS % 0.1 % (0.0-4.0); HEMOGLOBIN 12.8 g/dL (11.0-16.0); LYMPH # 1.1 K/uL (1.0-4.3); LYMPH % 14.1 % (20.0-40.0); MEAN CELL VOLUME 88.3 fL (81.0-99.0); MEAN CORPUSCULAR HGB CONC 35.1 g/dL (33.0-37.0); MEAN PLATELET VOLUME 9.4 fL (7.2-11.7); MONO # 0.2 K/uL (0.0-0.8); MONO % 2.3 % (0.0-10.0); NEUT # 6.7 K/uL (1.8-7.0); NEUT % 83.4 % (50.0-75.0); RBC 4.14 Mil/uL (3.80-5.20); RED CELL DISTRIBUTION WIDTH 12.7 % (11.5-14.5); WHITE BLOOD COUNT 8.1 K/uL (4.8-10.8)
[2018-03-03 08:00] LABS: ALB/GLOB RATIO 1.4 (1.0-2.1); ALBUMIN 4.1 g/dL (3.5-5.0); ALT/SGPT 39 U/L (9-52); AST/SGOT 25 U/L (14-36); BLOOD UREA NITROGEN 15 mg/dL (7-17); CALCIUM 9.1 mg/dl (8.6-10.4); GFR AFRICAN-AMERICAN > 60; GFR NON-AFRICAN AMERICAN > 60; HDL CHOLESTEROL 52 mg/dL (30-70)
[2018-03-03 08:11] LABS: LDL CHOLESTEROL 107 mg/dL (0-129)
[2018-03-03 08:14] LABS: CK-MB 0.77 ng/mL (0.0-3.38)
--- NOTE | 2018-03-03 10:32 | CP.PCM.CON ---
History of Present Illness - History of Present Illness History of Present Illness: Cardiology consulation for chest pain, Dr Ch service HPI: 67 y/o female with pmh of HTN, HLD, DM, MARY LOU, hypothyroidism, kidney stones and vertigo presents with chest pain x2 weeks. Pain is mid sternal, moderate, sharp, no radiation, lasts few few minutes, responds no SL nitroglycerine, occurs at rest and with exertion, associated with palpitations. Patient admits to dyspnea during exertion for the last few months, orthopenea, PND and her exercise tolerance has decreased. She has progressive dysphagia to solids that progressed to liquids lately. Has an appointment with GI next week. Patient has multiple episodes of syncope, last was 2 days ago in the [place], no LOC, no trauma, returned to normal in few seconds. Patient was told that she has a heart murmur and a hole in between heart chambers. She denied PA, CVA in the past. She had a fall few weeks ago and use knee braces, uses walker to ambulate. Review of Systems - Constitutional Constitutional: As Per HPI - EENT Eyes: absent: Blurred Vision, Change in Vision Nose/Mouth/Throat: Dysphagia - Cardiovascular Cardiovascular: Chest Pain, Chest Pain at Rest, Chest Pain with Activity, Dyspnea, Dyspnea on Exertion, Lightheadedness, Orthopnea, Palpitations, Paroxysmal Nocturnal Dyspnea, Syncope - Respiratory Respiratory: Dyspnea, Dyspnea on Exertion. absent: Cough, Hemoptysis - Gastrointestinal Gastrointestinal: Dyspepsia, Heartburn, Nausea - Genitourinary Genitourinary: absent: Change in Urinary Stream, Difficulty Urinating, Dysuria, Flank Pain - Reproductive: Female Reproductive:Female: As Per HPI - Menstruation Menstruation: As Per HPI - Musculoskeletal Musculoskeletal: As Per HPI - Integumentary Integumentary: As Per HPI - Neurological Neurological: Abnormal Gait, Dizziness, Frequent Falls, Syncope, Vertigo - Psychiatric Psychiatric: As Per HPI - Endocrine Endocrine: As Per HPI - Hematologic/Lymphatic Hematologic: As Per HPI Past Patient History - Infectious Disease Hx of Infectious Diseases: None - Tetanus Immunizations Tetanus Immunization: Unknown - Past Medical History & Family History Past Medical History?: Yes - Past Social History Smoking Status: Never Smoked - CARDIAC Hx Hypercholesterolemia: Yes Hx Hypertension: Yes - PULMONARY Hx Respiratory Disorders: No - NEUROLOGICAL Hx Neurological Disorder: Yes Hx Dizziness: Yes - HEENT Hx HEENT Problems: Yes Hx Cataracts: Yes (BILAT.) - RENAL Hx Chronic Kidney Disease: Yes Hx Kidney Stones: Yes - ENDOCRINE/METABOLIC Hx Diabetes Mellitus Type 2: Yes Hx Hypothyroidism: Yes - INTEGUMENTARY Hx Dermatological Problems: No - MUSCULOSKELETAL/RHEUMATOLOGICAL Hx Musculoskeletal Disorders: Yes Hx Falls: No Other/Comment: HX: UMBILICAL HERNIA - GASTROINTESTINAL Hx Gastrointestinal Disorders: No - GENITOURINARY/GYNECOLOGICAL Hx Genitourinary Disorders: No - PSYCHIATRIC Hx Depression: Yes Hx Substance Use: No - SURGICAL HISTORY Hx Appendectomy: Yes - ANESTHESIA Hx Anesthesia: Yes Hx Anesthesia Reactions: No Hx Malignant Hyperthermia: No Meds Home Medications: Home Medication List Medication Instructions Recorded Confirmed Type Meclizine [Antivert] 12.5 mg PO DAILY #7 tab 03/04/18 Rx Ondansetron [Zofran] 4 mg PO Q8H PRN #21 tab 03/04/18 Rx Allergies/Adverse Reactions: Allergies Allergy/AdvReac Type Severity Reaction Status Date / Time ibuprofen Allergy Mild RASH Verified 09/20/17 19:01 - Medications Medications: Current Medications Aspirin (Aspirin Supp) 300 mg TN DAILY [facility] [place] Last Admin: 03/03/18 10:26 Dose: 300 mg Dextrose (Dextrose 50% Inj) 0 ml IV STAT PRN; Protocol PRN Reason: Hypoglycemia Protocol Dextrose (Glutose 15) 0 gm PO ONCE PRN; Protocol PRN Reason: Hypoglycemia Protocol Famotidine (Pepcid) 20 mg IVP Q12 [facility] [place] Last Admin: 03/03/18 10:26 Dose: 20 mg Glucagon (Glucagen Diagnostic Kit) 0 mg IM STAT PRN; Protocol PRN Reason: Hypoglycemia Protocol Heparin Sodium (Porcine) (Heparin) 5,000 units SC Q8 [facility] Last Admin: 03/03/18 05:08 Dose: 5,000 units Dextrose (Dextrose 5% In Water 1000 Ml) 1,000 mls @ 0 mls/hr IV .Q0M PRN; Protocol; Per Protocol PRN Reason: Hypoglycemia Protocol Metoprolol Tartrate (Lopressor) 5 mg IVP Q6 PRN PRN Reason: Systolic Blood Pressure Nitroglycerin (Nitrostat Sl Tab) 0.4 mg SL PRN PRN PRN Reason: Pain, Mild (1-3) Physical Exam - Constitutional Appears: Well, No Acute Distress - Head Exam Head Exam: ATRAUMATIC, NORMAL INSPECTION, NORMOCEPHALIC - Eye Exam Eye Exam: EOMI, Normal appearance, PERRL Pupil Exam: NORMAL ACCOMODATION, PERRL - ENT Exam ENT Exam: Mucous Membranes Moist, Normal Exam - Neck Exam Neck exam: Positive for: Normal Inspection - Respiratory Exam Respiratory Exam: Clear to Auscultation Bilateral, NORMAL BREATHING PATTERN - Cardiovascular Exam Cardiovascular Exam: REGULAR RHYTHM, +S1, +S2 - GI/Abdominal Exam GI & Abdominal Exam: Normal Bowel Sounds, Soft. absent: Tenderness - Rectal Exam Rectal Exam: Deferred - Extremities Exam Extremities exam: Positive for: normal inspection. Negative for: calf tenderness, pedal edema - Back Exam Back exam: NORMAL INSPECTION - Neurological Exam Neurological exam: Alert, Altered - Psychiatric Exam Psychiatric exam: Normal Affect, Normal Mood - Skin Skin Exam: Dry, Intact, Normal Color, Warm Results - Vital Signs Recent Vital Signs: Last Vital Signs Temp 98.0 F 03/03/18 07:00 Pulse 70 03/03/18 07:00 Resp 20 03/03/18 07:00 BP 144/74 03/03/18 07:00 Pulse Ox 99 03/03/18 07:00 - Labs Result Diagrams: 03/04/18 08:45 03/04/18 08:45 Labs: Laboratory Results - last 24 hr 03/02/18 03/02/18 03/02/18 16:04 16:04 18:51 WBC 7.8 RBC 4.46 Hgb 14.1 Hct 40.2 MCV 90.0 MCH 31.6 H MCHC 35.1 RDW 12.8 Plt Count 200 MPV 9.5 Neut % (Auto) 74.5 Lymph % (Auto) 17.4 L [place] % (Auto) 5.9 Eos % (Auto) 1.7 Baso % (Auto) 0.5 Neut # (Auto) 5.8 Lymph # (Auto) 1.4 [place] # (Auto) 0.5 Eos # (Auto) 0.1 Baso # (Auto) 0.0 Sodium 142 Potassium 4.0 Chloride 99 Carbon Dioxide 30 Anion Gap 17 BUN 17 Creatinine 0.8 Est GFR ( Amer) > 60 Est GFR (Non-Af Amer) > 60 Random Glucose 143 H Calcium 10.1 Phosphorus Magnesium 1.5 L Total Bilirubin 0.5 AST 29 ALT 43 Alkaline Phosphatase 86 Total Creatine Kinase CK-MB (Mass) Troponin I < 0.0120 Total Protein 8.1 Albumin 4.9 Globulin 3.1 Albumin/Globulin Ratio 1.6 Triglycerides Cholesterol LDL Cholesterol Direct HDL Cholesterol Free T4 TSH 3rd Generation Urine Color Straw Urine Clarity Clear Urine pH 6.0 Ur Specific [place] 1.004 Urine Protein Negative Urine Glucose (UA) Normal Urine Ketones Trace Urine Blood Negative Urine Nitrate Negative Urine Bilirubin Negative Urine Urobilinogen Normal Ur Leukocyte Esterase Trace Urine WBC (Auto) 4 Urine RBC (Auto) 2 Ur Squamous Epith Cells 1 Urine Bacteria Rare 03/02/18 03/03/18 03/03/18 22:24 07:36 07:37 WBC 8.1 RBC 4.14 Hgb 12.8 Hct 36.6 MCV 88.3 MCH 31.0 MCHC 35.1 RDW 12.7 Plt Count 197 MPV 9.4 Neut % (Auto) 83.4 H Lymph % (Auto) 14.1 L [place] % (Auto) 2.3 Eos % (Auto) 0.1 Baso % (Auto) 0.1 Neut # (Auto) 6.7 Lymph # (Auto) 1.1 [place] # (Auto) 0.2 Eos # (Auto) 0.0 Baso # (Auto) 0.0 Sodium 142 Potassium 3.9 Chloride 105 Carbon Dioxide 26 Anion Gap 15 BUN 15 Creatinine 0.7 Est GFR ( Amer) > 60 Est GFR (Non-Af Amer) > 60 Random Glucose 153 H Calcium 9.1 Phosphorus 2.5 Magnesium 1.8 Total Bilirubin 0.4 AST 25 ALT 39 Alkaline Phosphatase 72 Total Creatine Kinase 45 CK-MB (Mass) 0.43 Troponin I < 0.0120 Total Protein 7.0 Albumin 4.1 Globulin 3.0 Albumin/Globulin Ratio 1.4 Triglycerides 88 D Cholesterol 184 LDL Cholesterol Direct 107 HDL Cholesterol 52 Free T4 TSH 3rd Generation 0.62 Urine Color Urine Clarity Urine pH Ur Specific [place] Urine Protein Urine Glucose (UA) Urine Ketones Urine Blood Urine Nitrate Urine Bilirubin Urine Urobilinogen Ur Leukocyte Esterase Urine WBC (Auto) Urine RBC (Auto) Ur Squamous Epith Cells Urine Bacteria 03/03/18 03/03/18 07:37 07:37 WBC RBC Hgb Hct MCV MCH MCHC RDW Plt Count MPV Neut % (Auto) Lymph % (Auto) [place] % (Auto) Eos % (Auto) Baso % (Auto) Neut # (Auto) Lymph # (Auto) [place] # (Auto) Eos # (Auto) Baso # (Auto) Sodium Potassium Chloride Carbon Dioxide Anion Gap BUN Creatinine Est GFR ( Amer) Est GFR (Non-Af Amer) Random Glucose Calcium Phosphorus Magnesium Total Bilirubin AST ALT Alkaline Phosphatase Total Creatine Kinase 56 CK-MB (Mass) 0.77 Troponin I < 0.0120 Total Protein Albumin Globulin Albumin/Globulin Ratio Triglycerides Cholesterol LDL Cholesterol Direct HDL Cholesterol Free T4 1.28 TSH 3rd Generation Urine Color Urine Clarity Urine pH Ur Specific [place] Urine Protein Urine Glucose (UA) Urine Ketones Urine Blood Urine Nitrate Urine Bilirubin Urine Urobilinogen Ur Leukocyte Esterase Urine WBC (Auto) Urine RBC (Auto) Ur Squamous Epith Cells Urine Bacteria - EKG Data EKG Interpreted by: Other EKG shows normal: Sinus rhythm Rate: Normal Assessment & Plan (1) Chest pain Assessment and Plan: 67 y/o female with pmh of HTN, HLD, DM, hypothyroidism, vertigo presents with chest pain, palpitations, orthopnea, MCGHEE EKG: NSR @ 73 Echo (02/2017) mild aortic sclerosis, LA dilated Echo done . f/u pharmacologic stress test Marlon Barnes DO PGY1 d/w Dr Ch Status: Acute
[2018-03-03] MEDS ORDERED: Barium Sulfate for Susp 98% w/w 340g Bottle ONE (11:27)
--- NOTE | 2018-03-03 13:00 | CP.PCM.PN ---
Subjective - Date & Time of Evaluation Date of Evaluation: 03/03/18 Time of Evaluation: 10:00 - Subjective Subjective: PGY-1 medicine note for hospitalist service. Patient seen and examined at bedside. Complains of continued chest pain, which is reproducible on palpation. Of note, patient suffered a fall 1.5 months ago injuring her L knee. Since the fall, she has been using a walker to get around, which she states is very straining on her upper body. Patient also complains of headache and throbbing in her L ear. Also states she became lightheaded during her physical therapy session today, nearly lost her balance and had to be helped to sit down by the therapist. Objective - Vital Signs/Intake and Output Vital Signs (last 24 hours): Temp Pulse Resp BP Pulse Ox 98.0 F 70 20 144/74 99 03/03/18 07:00 03/03/18 07:00 03/03/18 07:00 03/03/18 07:00 03/03/18 07:00 - Medications Medications: Current Medications Dextrose (Dextrose 50% Inj) 0 ml IV STAT PRN; Protocol PRN Reason: Hypoglycemia Protocol Dextrose (Glutose 15) 0 gm PO ONCE PRN; Protocol PRN Reason: Hypoglycemia Protocol Glucagon (Glucagen Diagnostic Kit) 0 mg IM STAT PRN; Protocol PRN Reason: Hypoglycemia Protocol Heparin Sodium (Porcine) (Heparin) 5,000 units SC Q8 [facility] Last Admin: 03/03/18 05:08 Dose: 5,000 units Hydrochlorothiazide (Microzide) 12.5 mg PO DAILY [facility] Dextrose (Dextrose 5% In Water 1000 Ml) 1,000 mls @ 0 mls/hr IV .Q0M PRN; Protocol; Per Protocol PRN Reason: Hypoglycemia Protocol Lisinopril (Zestril) 20 mg PO DAILY [facility] Metformin HCl (Glucophage) 500 mg PO BID [facility] Nitroglycerin (Nitrostat Sl Tab) 0.4 mg SL PRN PRN PRN Reason: Pain, Mild (1-3) Rosuvastatin Calcium (Crestor) 5 mg PO HS [facility] - Labs Labs: 03/03/18 07:36 03/03/18 07:37 - Constitutional Appears: No Acute Distress - Head Exam Head Exam: ATRAUMATIC, NORMOCEPHALIC - Eye Exam Eye Exam: Normal appearance, PERRL - ENT Exam ENT Exam: Mucous Membranes Moist - Neck Exam Neck Exam: Normal Inspection - Respiratory Exam Respiratory Exam: Clear to Ausculation Bilateral, NORMAL BREATHING PATTERN. absent: Decreased Breath Sounds, Rales, Rhonchi, Wheezes, Respiratory Distress - Cardiovascular Exam Cardiovascular Exam: REGULAR RHYTHM, +S1, +S2, Murmur Additional comments: Hypertonicity and tenderness of bilateral pectoralis major muscles - GI/Abdominal Exam GI & Abdominal Exam: Soft. absent: Tenderness - Extremities Exam Extremities Exam: Normal Capillary Refill, Tenderness. absent: Calf Tenderness , Pedal Edema Additional comments: over left knee. - Neurological Exam Neurological Exam: Alert, Awake, CN II-XII Intact, Oriented x3. absent: Motor Sensory Deficit - Psychiatric Exam Psychiatric exam: Anxious, Normal Mood - Skin Skin Exam: Dry, Intact, Normal Color, Warm Assessment and Plan - Assessment and Plan (Free Text) Plan: 67 year old F with PMHx of HTN, Hypercholesterolemia, sleep apnea, Kidney Stones , dysphagia, Vertigo, hypothyroidism (not on meds) and recently diagnosed DM II admitted for chest pain and syncope. Chest pain; palpitations Risk factors: DM, HTN, cholesterol, family hx, Age >50, former smoker DANIA: 4= 20% all cause mortality Consult placed to cardiology- Dr. Ch. Help appreciated Patient for pharmacological stress test 03/04/18 EKG- NSR @ 73 CXR- no acute pathologies noted; see full report f/u Echo- check ao valve, syncope, HTN Previous Echo 02/2017- Left ventricular function is normal. Transmitral doppler flow pattern is grade1 abnormal relaxation pattern. LA is mildly dilated. Aortic valve is mildly sclerotic. Mitral regurgitation is trace. Mild TR hold home meds in setting of dysphagia- HOLD-ASA 81, Lisinopril 20mg qd, HCTZ 12.5 daily, Simvastatin-> restarted 03/03 following speech pathology report of low risk of aspiration ASA 300mg OR daily- d/c'ed Lopressor 5mg IV Q6H SBP >160 D/c'ed Nitro sublingual 0.4mg PRN chest pain O2 2L NC monitor telemetry Cardiac Enzymes Q6H and EKG x2-> negative Hgb A1c: 6.4 lipid panel: WNL TSH, free T4= WNL Syncope CT head- negative Accuchecks Q6h D5 1/2NS 50cc/hr->dc'ed Cardiac workup CT head: age related degenerative changes; see full report Orthostatics Dysphagia for months, worse from baseline dysphagia to solids now involving liquids, + globus sensation Failed bedside nursing swallow screen Swallow evaluation airways, epiglottis and prevertebral soft tissues appear normal. Swallowing function is normal. No aspiration or deep laryngeal penetration. Pending outpatient appointment Saturday. NPO-> modified soft diet HTN start Lisinopril Lopressor 5mg IV Q6 sbp > 160-> dc'ed DM II Hgb A1C- 7.0 in 11/2017 -> 6.4 Glucose on admission: 143 D5 1/2NS 50cc/hr->dc'ed lipid panel:WNL Accuchecks ACHS Q6 Hypogylcemic protocol Start statin, Lisinopril, Metformin due to normal swallow study Lipid disorder Crestor 5 lipid panel: WNL Sleep Apnea C-pap- Respiratory therapist to titrate Vertigo Hold Antivert Fall precautions Left Knee Pain Recent mechanical fall Xray of left knee 02/19/18 reviewed- no fracture; arthritic changes F/u outpatient Hx of Mechanical Fall Fall precautions History of Nephrolithiasis No renal colic Prophylaxic Measures Modified soft diet Heparin 5000u SC Q8H PT/OT eval fall precautions Pt to go to stress test tomorrow with Dr. Ch. NPO after midnight.
--- NOTE | 2018-03-03 13:55 | RAD ---
Date of service: 03/03/2018 PROCEDURE: Modified barium swallow study. HISTORY: C/O Dysphagia COMPARISON: None available. TECHNIQUE: Under fluoroscopic guidance, the patient was given various consistencies of barium meals by the speech pathologist. Examination was performed in conjunction with speech pathology department. FINDINGS: The airways, epiglottis and prevertebral soft tissues appear normal on lateral projection. Swallowing function is normal. There is no aspiration or deep laryngeal penetration. The total fluoroscopic time was 2.4 minutes. IMPRESSION: No deep laryngeal penetration or aspiration observed. Please refer to the detailed report and recommendations of the speech pathologist.
--- NOTE | 2018-03-04 08:51 | CP.PCM.PN ---
Subjective - Date & Time of Evaluation Date of Evaluation: 03/04/18 Time of Evaluation: 08:49 - Subjective Subjective: Cardiology progress note for Dr Ch Pt seen and examined. she has no complaints after doing nuclear stress test. No cp, palpitations, dyspnea. Doing well. Objective - Vital Signs/Intake and Output Vital Signs (last 24 hours): Temp Pulse Resp BP Pulse Ox 98.0 F 59 L 20 134/77 99 03/04/18 07:00 03/04/18 07:00 03/04/18 07:00 03/04/18 07:00 03/04/18 07:00 Intake and Output: 03/04/18 03/04/18 06:59 18:59 Intake Total 450 Balance 450 - Medications Medications: Current Medications Dextrose (Dextrose 50% Inj) 0 ml IV STAT PRN; Protocol PRN Reason: Hypoglycemia Protocol Dextrose (Glutose 15) 0 gm PO ONCE PRN; Protocol PRN Reason: Hypoglycemia Protocol Glucagon (Glucagen Diagnostic Kit) 0 mg IM STAT PRN; Protocol PRN Reason: Hypoglycemia Protocol Heparin Sodium (Porcine) (Heparin) 5,000 units SC Q8 [facility] Last Admin: 03/04/18 05:55 Dose: 5,000 units Hydrochlorothiazide (Microzide) 12.5 mg PO DAILY [facility] Last Admin: 03/03/18 13:58 Dose: 12.5 mg Dextrose (Dextrose 5% In Water 1000 Ml) 1,000 mls @ 0 mls/hr IV .Q0M PRN; Protocol; Per Protocol PRN Reason: Hypoglycemia Protocol Lisinopril (Zestril) 20 mg PO DAILY [facility] Last Admin: 03/03/18 13:58 Dose: 20 mg Metformin HCl (Glucophage) 500 mg PO BID [facility] Last Admin: 03/03/18 18:06 Dose: 500 mg Nitroglycerin (Nitrostat Sl Tab) 0.4 mg SL PRN PRN PRN Reason: Pain, Mild (1-3) Rosuvastatin Calcium (Crestor) 5 mg PO HS [facility] Last Admin: 03/03/18 22:14 Dose: 5 mg - Labs Labs: 03/03/18 07:36 03/03/18 07:37 - Constitutional Appears: Well, No Acute Distress - Head Exam Head Exam: ATRAUMATIC, NORMAL INSPECTION, NORMOCEPHALIC - Eye Exam Eye Exam: EOMI, Normal appearance, PERRL Pupil Exam: NORMAL ACCOMODATION, PERRL - ENT Exam ENT Exam: Mucous Membranes Moist, Normal Exam - Neck Exam Neck Exam: Full ROM, Normal Inspection. absent: Lymphadenopathy - Cardiovascular Exam Cardiovascular Exam: +S1, +S2 - GI/Abdominal Exam GI & Abdominal Exam: Soft, Normal Bowel Sounds. absent: Tenderness - Rectal Exam Rectal Exam: Deferred - Extremities Exam Extremities Exam: Full ROM, Normal Capillary Refill, Normal Inspection. absent : Joint Swelling, Pedal Edema - Back Exam Back Exam: NORMAL INSPECTION - Neurological Exam Neurological Exam: Alert, Altered, Awake - Psychiatric Exam Psychiatric exam: Normal Affect, Normal Mood - Skin Skin Exam: Dry, Intact, Normal Color, Warm Assessment and Plan (1) Chest pain Assessment & Plan: 67 y/o female admitted for cp, frequent syncope episodes. Nuclear stress test is normal. will do orthostatics to evaluate for dizziness and syncope patient is clear from cardiology standpoint Case discussed with Dr Ch. Marlon Barnes, DO PGY1 Status: Acute
[2018-03-04 08:55] LABS: BASO % 0.6 % (0.0-2.0); EOS # 0.1 K/uL (0.0-0.7); EOS % 1.9 % (0.0-4.0); HEMOGLOBIN 12.5 g/dL (11.0-16.0); LYMPH # 2.6 K/uL (1.0-4.3); LYMPH % 41.1 % (20.0-40.0); MEAN CELL VOLUME 87.8 fL (81.0-99.0); MEAN CORPUSCULAR HEMOGLOBIN 31.5 pg (27.0-31.0); MEAN CORPUSCULAR HGB CONC 35.9 g/dL (33.0-37.0); MEAN PLATELET VOLUME 9.2 fL (7.2-11.7); MONO # 0.4 K/uL (0.0-0.8); MONO % 6.1 % (0.0-10.0); NEUT # 3.2 K/uL (1.8-7.0); NEUT % 50.3 % (50.0-75.0); RBC 3.96 Mil/uL (3.80-5.20); RED CELL DISTRIBUTION WIDTH 12.8 % (11.5-14.5); WHITE BLOOD COUNT 6.3 K/uL (4.8-10.8)
[2018-03-04 09:29] LABS: ALB/GLOB RATIO 1.4 (1.0-2.1); ALBUMIN 3.8 g/dL (3.5-5.0); ALT/SGPT 47 U/L (9-52); AST/SGOT 36 U/L (14-36); BLOOD UREA NITROGEN 15 mg/dL (7-17); CALCIUM 9.1 mg/dl (8.6-10.4); GFR AFRICAN-AMERICAN > 60; GFR NON-AFRICAN AMERICAN > 60
--- NOTE | 2018-03-04 11:51 | CARD ---
APPROVED REPORT Date of service: 03/04/2018 Protocol: LEXISCAN Test Type: LEXISCAN STRESS Test Indications: CHEST PAIN SYNCOPE Target HR: 152 bpm Resting ECG: normal Resting Heart Rate: 63 bpm Resting Blood Pressure: 142/80mmHg submaximum (85%): 129 bpm TEST SUMMARY PREINFSNHYPERV.09:[id number]/80.0. INFUSIONDOSE 100:300.00.01.066/.0. XGFOOVSOT06:[id number]/80.0. PROCEDURE Pharmacologic stress testing was performed using 0.4mg per 5ml of regadenoson given intravenously over 7-10 seconds. POST EXERCISE Reason for Termination: Protocol Completed Target HR: No Max HR: 66 bpm 65% of Maximum Predicted HR: 152 bpm Exercise duration: 00:30 min:sec, 0 Stage Exercise capacity: 1.0METs Max Blood Pressure: 142/80mmHg Blood Pressure response to exercise: N/A Heart Rate response to exercise: N/A Chest Pain: No, none Angina index: 0 Arrhythmia: No, none ST Change: No, none Deviation: 0 mm EXAM: Myocardial Perfusion STRESS/REST Imaging Protocol The imaging protocol used to acquire images was Stress Tc-99m/rest Tc-99m 1 day Rest Spect myocardial perfusion imaging was performed in supine position 45 minutes following the injection of 32.0 mCi of Tc-99 Myoview. Gated Stress Spect was performed 45 minutes after intravenous 12.4 mCi Tc-99 Myoview injection. The images were gated to evaluate regional wall motion and calculate ventricular ejection fraction.Images were reconstructed using backfilter projection method in short horizontal and verticle long axis. Spect slices were generated. RESTING DATA EDV79.22tqRJ6.40L/min ESV19.00mlMyocardial Anzh059.00g Av. Heart Rate57.00bpm EF76.00% STRESS DATA EDV77.23voPL0.90L/min ESV15.00mlMyocardial Gutg147.00g EF81.00% Regional WT score at stress:0.00 Regional WM score at stress:0.00 Summed WT score at stress:0.00 Av. Heart Rate63.00bpmSummed WM score at stress:0.00 Study quality was good. Left Ventricular size was Normal at Rest and Stress. Lung uptake was Normal. Left Ventricular ejection fraction is 81%. LV Perf. Quant 17 Seg. SSS0.00 17 Seg. SRS3.00 17 Seg. SDS0.00 Stress Defect Extent (% LAD)0.00Rest Defect Extent (% LAD)0.00Rev. Defect Extent (% LAD)0.00 Stress Defect Extent (% LCX)0.00Rest Defect Extent (% LCX)20.00Rev. Defect Extent (% LCX)0.00 Stress Defect Extent (% RCA)0.00Rest Defect Extent (% RCA)0.00Rev. Defect Extent (% RCA)0.00 Stress Defect Extent (% NATALIE)0.00Rest Defect Extent (% NATALIE)3.50Rev. Defect Extent (% NATALIE)0.00 Other Information Quality:Good Overall Exercise Capacity: not assessed IMPRESSION Global LV Function: Normal Stress Test Summary: Normal LV Perfusion Summary: Normal Metabolism/Perfusion There are no perfusion/metabolism defects. Conclusion 1. - Normal myocardial perfusion study with no evidence of ischemia 2. - Normal LVEF
--- NOTE | 2018-03-04 13:48 | CP.PCM.PCO ---
Physician Communication Note - Physician Communication Note Physician Communication Note: Please see above
[2018-03-04 14:37] VITALS: PULSE 60
--- NOTE | 2018-03-04 15:00 | CARD ---
APPROVED REPORT Date of service: 03/03/2018 EXAM: Two-dimensional and M-mode echocardiogram with Doppler and color Doppler. Other Information Quality : AverageRhythm : NSR INDICATION Dizziness and Vertigo Chest Pain Syncope RISK FACTORS Hypertension Hyperlipidemia M-Mode DIMENSIONS RVDd0.76 (2.1-3.2cm)Left Atrium (MM)3.89 (2.5-4.0cm) IVSd0.94 (0.7-1.1cm)Aortic Root3.40 (2.2-3.7cm) LVDd4.83 (4.0-5.6cm)Aortic Cusp Exc.1.67 (1.5-2.0cm) PWd0.88 (0.7-1.1cm)FS (%) 35 % LVDs3.16 (2.0-3.8cm)LVEF (%)64 (>50%) Aortic Valve AoV Peak Flbxegtw646.7cm/Gerardo Peak GR.10mmHg Mitral Valve MV E Aeshibgm04.8cm/sMV A Vupznkpz030.9cm/sE/A ratio0.7 TDI E/Lateral E'0.0E/Medial E'0.0 Tricuspid Valve TR Peak Pxyxkbqy218wz/sTR Peak Gr.[id number] <Conclusion> Left ventricle: thickness: normal; size: normal; overall ejection fraction: 65%: diastolic filling pressures: normal Mitral valve: annulus: normal: leaflets: normal: excursion: normal; no significant trans-mitral gradient: No significant incompetence: left atrium: normal Aortic valve: leaflets: mild calcific thickening: excursion: normal; no significant trans-aortic gradient: No significant incompetence: aortic root: normal Right sided Structures: Pulmonary valve: normal; no significant incompetence; Tricuspid valve: normal; no significant incompetence: Intra-cardiac hemodynamics: pulmonary systolic pressures: normal; central venous pressures: normal No pericardial effusion
--- NOTE | 2018-03-04 15:01 | CARD ---
APPROVED REPORT Date of service: 03/02/2018 EKG Measurement Heart [id number] [place] [id number] <Conclusion> Normal sinus rhythm Nonspecific T wave abnormality Abnormal ECG
--- NOTE | 2018-03-04 15:06 | CARD ---
APPROVED REPORT Date of service: 03/02/2018 EKG Measurement Heart [id number] [place] [id number] <Conclusion> Normal sinus rhythm Normal ECG
--- NOTE | 2018-03-04 15:15 | CP.PCM.DIS ---
Provider - Provider Date of Admission: 03/02/18 17:29 Attending physician: Pablo Mitchell MD Primary care physician: [facility] Consults: mario Carreno Time Spent in preparation of Discharge (in minutes): 45 Diagnosis - Discharge Diagnosis (1) Chest pain Status: Acute (2) Dysphagia Status: Acute (3) Syncope Status: Acute Hospital Course - Lab Results Lab Results: Most Recent Lab Values WBC 6.3 K/uL (4.8-10.8) 03/04/18 08:45 RBC 3.96 Mil/uL (3.80-5.20) 03/04/18 08:45 Hgb 12.5 g/dL (11.0-16.0) 03/04/18 08:45 Hct 34.7 % (34.0-47.0) 03/04/18 08:45 MCV 87.8 fL (81.0-99.0) 03/04/18 08:45 MCH 31.5 pg (27.0-31.0) H 03/04/18 08:45 MCHC 35.9 g/dL (33.0-37.0) 03/04/18 08:45 RDW 12.8 % (11.5-14.5) 03/04/18 08:45 Plt Count 183 K/uL (130-400) 03/04/18 08:45 MPV 9.2 fL (7.2-11.7) 03/04/18 08:45 Neut % (Auto) 50.3 % (50.0-75.0) 03/04/18 08:45 Lymph % (Auto) 41.1 % (20.0-40.0) H 03/04/18 08:45 [place] % (Auto) 6.1 % (0.0-10.0) 03/04/18 08:45 Eos % (Auto) 1.9 % (0.0-4.0) 03/04/18 08:45 Baso % (Auto) 0.6 % (0.0-2.0) 03/04/18 08:45 Neut # (Auto) 3.2 K/uL (1.8-7.0) 03/04/18 08:45 Lymph # (Auto) 2.6 K/uL (1.0-4.3) 03/04/18 08:45 [place] # (Auto) 0.4 K/uL (0.0-0.8) 03/04/18 08:45 Eos # (Auto) 0.1 K/uL (0.0-0.7) 03/04/18 08:45 Baso # (Auto) 0.0 K/uL (0.0-0.2) 03/04/18 08:45 Sodium 143 mmol/L (132-148) 03/04/18 08:45 Potassium 3.9 mmol/L (3.6-5.2) 03/04/18 08:45 Chloride 106 mmol/L (98-107) 03/04/18 08:45 Carbon Dioxide 26 mmol/L (22-30) 03/04/18 08:45 Anion Gap 15 (10-20) 03/04/18 08:45 BUN 15 mg/dL (7-17) 03/04/18 08:45 Creatinine 0.8 mg/dL (0.7-1.2) 03/04/18 08:45 Est GFR ( Amer) > 60 03/04/18 08:45 Est GFR (Non-Af Amer) > 60 03/04/18 08:45 POC Glucose (mg/dL) 105 mg/dL (65-110) 03/03/18 21:06 Random Glucose 103 mg/dL (65-105) 03/04/18 08:45 Hemoglobin A1c 6.4 % (4.2-6.5) 03/03/18 07:36 Calcium 9.1 mg/dl (8.6-10.4) 03/04/18 08:45 Phosphorus 3.3 mg/dL (2.5-4.5) 03/04/18 08:45 Magnesium 1.7 mg/dL (1.6-2.3) 03/04/18 08:45 Total Bilirubin 0.4 mg/dL (0.2-1.3) 03/04/18 08:45 AST 36 U/L (14-36) D 03/04/18 08:45 ALT 47 U/L (9-52) 03/04/18 08:45 Alkaline Phosphatase 68 U/L (38-126) 03/04/18 08:45 Total Creatine Kinase 56 U/L (30-135) 03/03/18 07:37 CK-MB (Mass) 0.77 ng/mL (0.0-3.38) 03/03/18 07:37 Troponin I < 0.0120 ng/mL (0.00-0.120) 03/03/18 07:37 Total Protein 6.6 g/dL (6.3-8.3) 03/04/18 08:45 Albumin 3.8 g/dL (3.5-5.0) 03/04/18 08:45 Globulin 2.8 gm/dL (2.2-3.9) 03/04/18 08:45 Albumin/Globulin Ratio 1.4 (1.0-2.1) 03/04/18 08:45 Triglycerides 88 mg/dL (0-149) D 03/03/18 07:37 Cholesterol 184 mg/dL (0-199) 03/03/18 07:37 LDL Cholesterol Direct 107 mg/dL (0-129) 03/03/18 07:37 HDL Cholesterol 52 mg/dL (30-70) 03/03/18 07:37 Free T4 1.28 ng/dL (0.78-2.19) 03/03/18 07:37 TSH 3rd Generation 0.62 mIU/L (0.46-4.68) 03/03/18 07:37 Urine Color Straw (YELLOW) 03/02/18 18:51 Urine Clarity Clear (Clear) 03/02/18 18:51 Urine pH 6.0 (5.0-8.0) 03/02/18 18:51 Ur Specific [place] 1.004 (1.003-1.030) 03/02/18 18:51 Urine Protein Negative mg/dL (NEGATIVE) 03/02/18 18:51 Urine Glucose (UA) Normal mg/dL (Normal) 03/02/18 18:51 Urine Ketones Trace mg/dL (NEGATIVE) 03/02/18 18:51 Urine Blood Negative (NEGATIVE) 03/02/18 18:51 Urine Nitrate Negative (NEGATIVE) 03/02/18 18:51 Urine Bilirubin Negative (NEGATIVE) 03/02/18 18:51 Urine Urobilinogen Normal mg/dL (0.2-1.0) 03/02/18 18:51 Ur Leukocyte Esterase Trace Yovany/uL (Negative) 07/22/18 18:51 Urine WBC (Auto) 4 /hpf (0-5) 03/02/18 18:51 Urine RBC (Auto) 2 /hpf (0-3) 03/02/18 18:51 Ur Squamous Epith Cells 1 /hpf (0-5) 03/02/18 18:51 Urine Bacteria Rare (<OCC) 03/02/18 18:51 - Hospital Course Hospital Course: This 67 y/o female with PMHx HTN, Hypercholesterolemia, sleep apnea, Kidney Stones, dysphagia, Vertigo, hypothyroidism (not on meds) and recently diagnosed DM II presenting to the ED with c/o chest pain x 2 weeks. During this time the pain was relapsing-remitting, without any specifically identifiable exacerbating factor. The pain is localized to the left side of the chest, without radiation and described as pulsating. She neglected the pain and it resolved on its own. The pain then returned this week and it has been constant for the past 3 days. She admitted to associated palpitations and episodes of shortness of breath not related to exertion. This morning she was attending faith, which was hot without air conditioning, and was standing for an extended period of time. At faith, she experienced worsening chest pain and palpitations, became lightheaded and syncopized. She states she did not eat breakfast before faith. Patient states she sleeps with 2 pillows and can walk 2 blocks before experiencing shortness of breath. In addition to the chest pain she is complaining of worsening dysphagia. She has a hx of dysphagia in relation to solid foods for the past few months, however today she notes dysphagia in relation to liquids, which is atypical for her. States she has a constant feeling that something is stuck in her throat. She has an appointment with a GI specialist in 5 days. Patient denies fever, chills, nausea, vomiting, abdominal pain, diarrhea, bloody stools, recent travel , and recent sickness, focal weakness. Patient was seen and examined at 1:30 PM with daughter Jennifer present. Patient was admitted for Chest pain, syncope and dysphagia. A cardiac work up was initiated: troponins x3, EKG's, an echocardiogram and pharmacological stress test were all negative. Dizziness is likely due to patient's chronic vertigo. Patient's fainting spell is explained by the fact that she did not drink or eat anything that day. Patient's dysphagia work up revealed an osteophye at C5-C6 irritating patient's esophagus. Notified by resident working with Dr. Ch that stress test was normal and that patient was cleared for discharge from their standpoint. Confirmed with Daughter Jennifer that patient had all of her medications at home. Confirmed with Daughter Jennifer that patient has a scheduled appointment at [facility] with Business Solutions Director this Saturday for further workup for her history of Dysphagia. The following instructions will need to be provided to patient upon discharge: 1). Follow up with Business Solutions Director as already scheduled for Saturday03/07/18 at the [facility]. 2). It was confirmed with your Daughter Jennifer that you have enough of the following medications. Please use them as directed: HCTZ 12.5 mg, 1 tablet by mouth 1x/day (8 AM) Lisinopril 20 mg, 1 tablet by mouth 1x/day (2 PM) Metformin 500 mg, 1 tablet by mouth 2x/day (8 AM and 8 PM: breakfast and dinner) Simvastatin 20 mg, 1 tablet by mouth 1x/day (8 AM) 3). Do not skip meals and please remain well hydrated with water throughout the day. 4). You may take 8 ounces of prune juice with your breakfast to help you move your bowels as needed. 5). Continue to follow up with the Family Physicians at [facility] for coordination of your health care. 6). Please take care and be well. Discharge Exam - Head Exam Head Exam: ATRAUMATIC, NORMAL INSPECTION, NORMOCEPHALIC - Eye Exam Eye Exam: PERRL Pupil Exam: NORMAL ACCOMODATION - Respiratory Exam Respiratory Exam: Clear to PA & Lateral, NORMAL BREATHING PATTERN, UNREMARKABLE - Cardiovascular Exam Cardiovascular Exam: REGULAR RHYTHM, +S1, +S2 Additional comments: tenderness to L pec muscle - GI/Abdominal Exam GI & Abdominal Exam: Normal Bowel Sounds, Soft. absent: Firm, Guarding, Tenderness - Extremities Exam Extremities exam: pedal edema - Neurological Exam Neurological exam: Alert, CN II-XII Intact, Motor Sensory Deficit, Oriented x3 Discharge Plan - Discharge Medications Prescriptions: Meclizine [Antivert] 12.5 mg PO DAILY #7 tab Ondansetron [Zofran] 4 mg PO Q8H PRN #21 tab PRN Reason: Nausea/Vomiting - Follow Up Plan Condition: STABLE Disposition: HOME/ ROUTINE Instructions: Chest Pain (DC), Dysphagia (DC), Syncope (DC) Additional Instructions: The following instructions will need to be provided to patient upon discharge: 1). Follow up with Business Solutions Director as already scheduled for Saturday03/07/18 at the [facility]. 2). It was confirmed with your Daughter Jennifer that you have enough of the following medications. Please use them as directed: HCTZ 12.5 mg, 1 tablet by mouth 1x/day (8 AM) Lisinopril 20 mg, 1 tablet by mouth 1x/day (2 PM) Metformin 500 mg, 1 tablet by mouth 2x/day (8 AM and 8 PM: breakfast and dinner) Simvastatin 20 mg, 1 tablet by mouth 1x/day (8 AM) 3). Do not skip meals and please remain well hydrated with water throughout the day. 4). You may take 8 ounces of prune juice with your breakfast to help you move your bowels as needed. 5). Continue to follow up with the Family Physicians at [facility] for coordination of your health care. 6). Please take care and be well. Americo Martínez D.O. Referrals: [facility] at [facility] [Outside]
[2018-03-04 16:21] VITALS: BP 149/83; TEMP 98.3; O2SAT 97
[2018-03-04] MEDS ORDERED: Aluminum Hydroxide/Magnesium Hydroxide Susp (30 mL) PO STA (16:39)
[2018-03-04] MEDS ORDERED: Sodium Chloride 0.9% 500 ML IV ONE (18:12)
--- NOTE | 2018-03-05 10:22 | CARD ---
APPROVED REPORT Date of service: 03/03/2018 EKG Measurement Heart [id number] <Conclusion> Normal sinus rhythm T wave abnormality, consider anterior ischemia Abnormal ECG
== END 2018-03-04 19:57 | disposition home or self-care (01) | DRG 312 ==
LOC: C.ER 14:59 → C.9E 17:29 → C.6T 19:07
PROVIDERS: ADMIT Family Medicine; ATTEND Family Medicine
DX: R55 Syncope and collapse (principal); E78.5 Hyperlipidemia, unspecified; E11.22 Type 2 diabetes mellitus with diabetic chronic kidney disease; E03.9 Hypothyroidism, unspecified; I12.9 Hypertensive chronic kidney disease with stage 1 through stage 4 chronic kidney disease, or unspecified chronic kidney disease; I48.91 Unspecified atrial fibrillation; I70.0 Atherosclerosis of aorta; N18.9 Chronic kidney disease, unspecified; R13.10 Dysphagia, unspecified; Z79.84 Long term (current) use of oral hypoglycemic drugs; Z87.891 Personal history of nicotine dependence; G47.33 Obstructive sleep apnea (adult) (pediatric); R07.89 Other chest pain

== ENCOUNTER 2018-03-17 10:02 | Day surgery (SDC) | payer SELFPAY ==
[2018-03-17 10:41] VITALS: TEMP 97.5; O2SAT 100
[2018-03-17] MEDS ORDERED: Midazolam 2 MG/2 ML VIAL ONE (13:25)
[2018-03-17] MEDS ORDERED: Propofol 10 mg/ml Inj (20 ML) ONE (13:25)
[2018-03-17 15:31] VITALS: BP 100/58; PULSE 65; RESP 19
== END 2018-03-17 15:20 | disposition home or self-care (01) ==
LOC: C.ENDO 10:02
PROVIDERS: ATTEND Internal Medicine Gastroenterology
DX: K29.50 Unspecified chronic gastritis without bleeding (principal); K59.00 Constipation, unspecified; K44.9 Diaphragmatic hernia without obstruction or gangrene; K64.8 Other hemorrhoids; K57.90 Diverticulosis of intestine, part unspecified, without perforation or abscess without bleeding
CPT/HCPCS: 43239; 45378; 82948; 88305; 88313; 88342; J2001; J2250; J2704

== ENCOUNTER 2018-04-23 13:07 | Emergency (ER) | payer SELFPAY ==
[2018-04-23 13:07] VITALS: BMI 34.4
[2018-04-23] MEDS ORDERED: Iohexol 240 (50 ml) PO STA (14:05)
[2018-04-23] MEDS ORDERED: Sodium Chloride 0.9% 1,000 ML IV ONE (14:05)
[2018-04-23] MEDS ORDERED: Iohexol 240 (50 ml) ONE (14:17)
[2018-04-23 14:40] LABS: BASO # 0.1 K/uL (0.0-0.2); BASO % 0.8 % (0.0-2.0); EOS # 0.3 K/uL (0.0-0.7); EOS % 4.6 % (0.0-4.0); HEMOGLOBIN 12.9 g/dL (11.0-16.0); LYMPH # 1.5 K/uL (1.0-4.3); LYMPH % 23.3 % (20.0-40.0); MEAN CELL VOLUME 89.1 fL (81.0-99.0); MEAN CORPUSCULAR HEMOGLOBIN 31.1 pg (27.0-31.0); MEAN CORPUSCULAR HGB CONC 34.9 g/dL (33.0-37.0); MEAN PLATELET VOLUME 9.3 fL (7.2-11.7); MONO # 0.4 K/uL (0.0-0.8); MONO % 7.1 % (0.0-10.0); NEUT # 4.1 K/uL (1.8-7.0); NEUT % 64.2 % (50.0-75.0); RBC 4.16 Mil/uL (3.80-5.20); RED CELL DISTRIBUTION WIDTH 13.2 % (11.5-14.5); WHITE BLOOD COUNT 6.3 K/uL (4.8-10.8)
[2018-04-23 14:45] LABS: SQUAMOUS EPITHIAL 5 /hpf (0-5); URINE BILIRUBIN NEGATIVE (NEGATIVE); URINE BLOOD 1+ (NEGATIVE); URINE CLARITY Hazy (Clear); URINE COLOR Straw (YELLOW); URINE GLUCOSE (UA) NORMAL (Normal); URINE LEUKOCYTE ESTERASE 1+ Leu/uL (Negative); URINE PROTEIN NEGATIVE (NEGATIVE); URINE UROBILINOGEN NORMAL mg/dL (0.2-1.0)
[2018-04-23 14:51] LABS: ALB/GLOB RATIO 1.5 (1.0-2.1); ALBUMIN 4.6 g/dL (3.5-5.0); ALT/SGPT 58 U/L (9-52); AST/SGOT 41 U/L (14-36); BLOOD UREA NITROGEN 14 mg/dL (7-17); CALCIUM 9.9 mg/dl (8.6-10.4); GFR NON-AFRICAN AMERICAN > 60; LIPASE 165 U/L (23-300)
--- NOTE | 2018-04-23 15:09 | C.PDOC ---
History Of Present Illness 67 y/o female presents to the ER complaining of left sided abdominal discomfort which has been present since last night. Patient reports that she has nausea, vomiting, diarrhea ( some loose stools), and dark urine. Patient states that she also feels like she has a fever and headache. Denies having sick contacts and recent travel. Time Seen by Provider: 04/23/18 13:59 Chief Complaint (Nursing): Abdominal Pain History Per: Patient History/Exam Limitations: no limitations Onset/Duration Of Symptoms: Days Current Symptoms Are (Timing): Still Present Severity: Moderate Past Medical History Reviewed: Historical Data, Nursing Documentation, Vital Signs Vital Signs: Last Vital Signs Temp 98.5 F 04/23/18 13:25 Pulse 86 04/23/18 14:00 Resp 18 04/23/18 14:00 BP 147/76 04/23/18 14:00 Pulse Ox 98 04/23/18 15:58 - Medical History PMH: Atrial Fibrillation (?), Depression, HTN, Hypercholesterolemia, Kidney Stones, Chronic Kidney Disease, Sleep Apnea Surgical History: Appendectomy - [facility] Procedures INJECT/INFUSE NEC (08/22/14) INTRODUCTION OF SERUM/TOX/VACCINE INTO MUSCLE, PERC APPROACH (09/04/16) UMBIL HERNIA REPAIR NEC (07/21/98) Family History: States: Hypertension - Social History Hx Tobacco Use: No Hx Alcohol Use: No Hx Substance Use: No - Immunization History Hx Tetanus Toxoid Vaccination: Yes Hx Influenza Vaccination: Yes Hx Pneumococcal Vaccination: Yes Review Of Systems Constitutional: Negative for: Fever, Chills Cardiovascular: Negative for: Light Headedness Gastrointestinal: Positive for: Nausea, Vomiting, Abdominal Pain, Diarrhea Neurological: Positive for: Headache Physical Exam - Physical Exam Appears: Non-toxic, No Acute Distress Skin: Normal Color, Warm, Dry Head: Atraumatic, Normacephalic Eye(s): bilateral: Normal Inspection Nose: Normal Oral Mucosa: Dry Neck: Supple Chest: Symmetrical Cardiovascular: Rhythm Regular Respiratory: Normal Breath Sounds, No Rales, No Rhonchi, No Wheezing Gastrointestinal/Abdominal: Bowel Sounds (very active bowel sounds), Soft, Tenderness (LUQ tenderness), No Guarding, No Rebound Neurological/Psych: Oriented x3, Normal Speech ED Course And Treatment - Laboratory Results Result Diagrams: 04/23/18 14:31 09/12/18 14:31 Lab Interpretation: No Acute Changes O2 Sat by Pulse Oximetry: 98 (RA) Pulse Ox Interpretation: Normal - CT Scan/US Abdomen and pelvis with contrast Other Rad Studies (CT/US): Read By Radiologist, Radiology Report Reviewed CT/US Interpretation: Accession No. : [id number]. Patient Name / ID : JAC MARQUES / [id number]. Exam Date : 04/23/2018 16:09:55 ( Approved ). Study Comment : Sex / Age : F / 67Y. Creator : Lisa Moise. Dictator : Maritza Mohr MD. Tank Erector : Supervisor Malted Milk : Maritza Mohr MD. Approver2 : Report Date : 04/23/2018 16:17:07. My Comment : . PROCEDURE: CT Abdomen and Pelvis with oral and IV contrast. HISTORY: abd pain. COMPARISON: None available. TECHNIQUE: Contiguous axial images of the abdomen and pelvis. Oral and IV contrast was administered. Coronal and Sagittal reformats generated and reviewed. Contrast dose: 100 cc Visipaque 320. Radiation dose: Total exam DLP = 1070.00 mGy-cm. This CT exam was performed using one or more of the following dose reduction techniques: Automated exposure control, adjustment of the mA and/or kV according to patient size, and/ or use of iterative reconstruction technique. FINDINGS: LOWER THORAX: Mild basilar atelectasis. No visible pleural effusion or pneumothorax. Small hiatal hernia/distal esophageal wall thickening. LIVER: Hypoattenuation of the liver compatible with hepatic steatosis. GALLBLADDER AND BILE DUCTS: Unremarkable. PANCREAS: Unremarkable. SPLEEN: 5 mm probable splenule. Otherwise unremarkable. ADRENALS: Unremarkable. KIDNEYS AND URETERS: The bilateral renal cortical scarring. 2.9 cm right lower pole renal hypodense lesion measures approximately 23 HU, higher than expected for a simple cyst. Nonobstructing bilateral renal calculi. The kidneys enhance symmetrically. No hydronephrosis or obstructing calculus identified. BLADDER: The urinary bladder appears unremarkable. REPRODUCTIVE: Uterus is present. APPENDIX: No secondary signs of acute appendicitis. BOWEL: The stomach is nondistended. The bowel loops appear within normal limits of caliber without evidence of intestinal obstruction. PERITONEUM: No significant free fluid. No definite free air. LYMPH NODES: No bulky lymphadenopathy identified. VASCULATURE: Atherosclerotic calcifications. No aortic aneurysm. BONES: Degenerative changes. Osseous demineralization. OTHER FINDINGS: None. IMPRESSION: Hepatic steatosis. Bilateral renal cortical scarring. Indeterminate low- density lesion involving the right lower pole kidney measures approximately 2.9 cm. Further evaluation with renal ultrasound may be considered. Nonobstructing bilateral renal calculi. No hydronephrosis or obstructing calculus identified. Bibasilar atelectasis. Additional findings as above. Progress Note: Patient treated with IV fluids and Zofran. Reevaluation Time: 16:53 Reassessment Condition: Improved Medical Decision Making Medical Decision Making: Plan: --Labs --UA --CT- Abd & Pelv. --IV Fluids --Zofran IV Disposition Counseled Patient/Family Regarding: Studies Performed, Diagnosis, Need For Followup, Rx Given - Disposition Referrals: [facility] [Outside] Disposition: HOME/ ROUTINE Disposition Time: 17:00 Condition: IMPROVED Prescriptions: Dicyclomine [Bentyl] 20 mg PO QID PRN #10 tab PRN Reason: Pain, Moderate (4-7) Ondansetron ODT [Zofran ODT] 4 mg PO QID PRN #10 odt PRN Reason: Nausea/Vomiting Instructions: Nausea and Vomiting, Adult (DC), Diarrhea in Adolescents and Adults, [place] Diet Forms: [employer] (Tunisian) - Clinical Impression Clinical Impression: Vomiting, Diarrhea - Scribe Statement The provider has reviewed the documentation as recorded by the Ana Spencer Provider Attestation: All medical record entries made by the Estephanieibyao were at my direction and personally dictated by me. I have reviewed the chart and agree that the record accurately reflects my personal performance of the history, physical exam, medical decision making, and the department course for this patient. I have also personally directed, reviewed, and agree with the discharge instructions and disposition.
[2018-04-23] MEDS ORDERED: Iodixanol 320 MG/ML 100 ML BOTTLE IV ONE (15:54)
--- NOTE | 2018-04-23 16:42 | CT ---
PROCEDURE: CT Abdomen and Pelvis with oral and IV contrast. HISTORY: abd pain COMPARISON: None available TECHNIQUE: Contiguous axial images of the abdomen and pelvis. Oral and IV contrast was administered. Coronal and Sagittal reformats generated and reviewed. Contrast dose: 100 cc Visipaque 320 Radiation dose: Total exam DLP = 1070.00 mGy-cm. This CT exam was performed using one or more of the following dose reduction techniques: Automated exposure control, adjustment of the mA and/or kV according to patient size, and/or use of iterative reconstruction technique. FINDINGS: LOWER THORAX: Mild basilar atelectasis. No visible pleural effusion or pneumothorax. Small hiatal hernia/distal esophageal wall thickening. LIVER: Hypoattenuation of the liver compatible with hepatic steatosis. GALLBLADDER AND BILE DUCTS: Unremarkable. PANCREAS: Unremarkable. SPLEEN: 5 mm probable splenule. Otherwise unremarkable. ADRENALS: Unremarkable. KIDNEYS AND URETERS: The bilateral renal cortical scarring. 2.9 cm right lower pole renal hypodense lesion measures approximately 23 HU, higher than expected for a simple cyst. Nonobstructing bilateral renal calculi. The kidneys enhance symmetrically. No hydronephrosis or obstructing calculus identified. BLADDER: The urinary bladder appears unremarkable. REPRODUCTIVE: Uterus is present. APPENDIX: No secondary signs of acute appendicitis. BOWEL: The stomach is nondistended. The bowel loops appear within normal limits of caliber without evidence of intestinal obstruction. PERITONEUM: No significant free fluid. No definite free air. LYMPH NODES: No bulky lymphadenopathy identified. VASCULATURE: Atherosclerotic calcifications. No aortic aneurysm. BONES: Degenerative changes. Osseous demineralization. OTHER FINDINGS: None. IMPRESSION: Hepatic steatosis. Bilateral renal cortical scarring. Indeterminate low-density lesion involving the right lower pole kidney measures approximately 2.9 cm. Further evaluation with renal ultrasound may be considered. Nonobstructing bilateral renal calculi. No hydronephrosis or obstructing calculus identified. Bibasilar atelectasis. Additional findings as above.
[2018-04-23 17:38] VITALS: BP 146/85; PULSE 70; RESP 16; TEMP 98.2; O2SAT 99
== END 2018-04-23 17:40 | disposition home or self-care (01) ==
LOC: C.ER 13:07
DX: R11.10 Vomiting, unspecified (principal); R19.7 Diarrhea, unspecified
CPT/HCPCS: 74177; 80053; 81001; 83690; 85025; 96361; 96374; 99284; J2405; J7030; Q9966; Q9967

== ENCOUNTER 2018-06-27 14:27 | Observation (INO) | payer SELFPAY ==
[~2018-06-27 14:27] MED LIST changes: +Influenza Vaccine 60 MCG/0.5 ML SYR (3 yr & up) IM ONE; -Lactated Ringer's 500 ML IV ONE; -Lidocaine Hydrochloride 5 ML INJ ONE; -Phenylephrine 2.5% Opht Soln OD SCH; -Tropicamide 1% Opht SOLUTION OD SCH
[2018-06-27 14:28] VITALS: BMI 33.8
--- NOTE | 2018-06-27 14:46 | C.PDOC ---
History Of Present Illness 67 year old female, whose past medical history includes hypertension, hyperlipidemia, and diabetes, presents to the ED from clinic for evaluation of high blood pressure noted prior to arrival. As per family at bedside, patient was in the clinic when she started feeling lightheaded and had a questionable syncopal episode. As per family, no deficits are currently noted. Patient does not have any complaints at this time. Time Seen by Provider: 06/27/18 14:40 Chief Complaint (Nursing): High Blood Pressure History Per: Patient, Family History/Exam Limitations: no limitations Onset/Duration Of Symptoms: Hrs Current Symptoms Are (Timing): Still Present Additional History Per: Patient, Family Past Medical History Reviewed: Historical Data, Nursing Documentation, Vital Signs Vital Signs: Last Vital Signs Temp 98.1 F 06/27/18 14:30 Pulse 60 06/27/18 14:30 Resp 20 06/27/18 14:30 BP 194/98 H 06/27/18 14:30 Pulse Ox 98 06/27/18 14:30 - Medical History PMH: Atrial Fibrillation (?), Depression, Diabetes, HTN, Hyperlipidemia, Kidney Stones, Chronic Kidney Disease, Sleep Apnea Surgical History: Appendectomy - [facility] Procedures INJECT/INFUSE NEC (08/22/14) INTRODUCTION OF SERUM/TOX/VACCINE INTO MUSCLE, PERC APPROACH (09/04/16) UMBIL HERNIA REPAIR NEC (07/21/98) Family History: States: Hypertension - Social History Hx Tobacco Use: No Hx Alcohol Use: No Hx Substance Use: No - Immunization History Hx Tetanus Toxoid Vaccination: Yes Hx Influenza Vaccination: Yes Hx Pneumococcal Vaccination: Yes Review Of Systems Cardiovascular: Positive for: Other (elevated blood pressure ) Neurological: Positive for: Other (lightheadedness, questionable syncope ) Physical Exam - Physical Exam Appears: Non-toxic, No Acute Distress Skin: Normal Color, Warm, Dry Head: Atraumatic, Normacephalic Eye(s): bilateral: Normal Inspection Ear(s): Bilateral: Normal Oral Mucosa: Moist Neck: Supple Chest: Symmetrical, No Deformity, No Tenderness Cardiovascular: Rhythm Regular, No Murmur Respiratory: Normal Breath Sounds, No Rales, No Rhonchi, No Wheezing Gastrointestinal/Abdominal: Soft, No Tenderness, No Guarding, No Rebound Extremity: Normal ROM, Capillary Refill (less than 2 seconds ) Neurological/Psych: Oriented x3, Normal Speech, Normal Cognition, Normal Motor, Normal Sensation Gait: Steady ED Course And Treatment - Laboratory Results Result Diagrams: 06/27/18 14:47 06/27/18 14:47 ECG: Interpreted By Me, Viewed By Me ECG Rhythm: Sinus Bradycardia Interpretation Of ECG: Sinus Bradycardia at rate 54bpm. Rate From EC O2 Sat by Pulse Oximetry: 98 (on RA) Pulse Ox Interpretation: Normal Medical Decision Making Medical Decision Making: syncope ro intracranial, metabolic infectious cardiac etioloyg Progress: Bloodwork, urinalysis , CT Head, CXR and EKG ordered and reviewed. labs neg. ct neg. b/p iomproved. neuro intact. will obs dr sumner accepts Disposition - Disposition Disposition: HOSPITALIZED Disposition Time: 16:30 Condition: STABLE - Clinical Impression Clinical Impression: Syncope - Scribe Statement The provider has reviewed the documentation as recorded by the Scribe (Francy Martínez) Provider Attestation: All medical record entries made by the Scribe were at my direction and pe rsonally dictated by me. I have reviewed the chart and agree that the record accurately reflects my personal performance of the history, physical exam, medical decision making, and the department course for this patient. I have also personally directed, reviewed, and agree with the discharge instructions and disposition. Decision To Admit - Pt Status Changed To: Hospital Disposition Of: Observation - InPatient: Physician Admission Certification: I certify that this patient requires 2 or mor e midnights of care for the following reason:: need obs for syncope - . Bed Request Type: Telemetry Admitting Physician: Marija Sumner Patient Diagnosis: Syncope
[2018-06-27 14:51] LABS: BASO % 0.4 % (0.0-2.0); EOS # 0.2 K/uL (0.0-0.7); EOS % 3.6 % (0.0-4.0); HEMOGLOBIN 13.1 g/dL (11.0-16.0); LYMPH # 1.3 K/uL (1.0-4.3); LYMPH % 19.9 % (20.0-40.0); MEAN CELL VOLUME 89.3 fL (81.0-99.0); MEAN CORPUSCULAR HEMOGLOBIN 31.2 pg (27.0-31.0); MONO # 0.4 K/uL (0.0-0.8); MONO % 6.4 % (0.0-10.0); NEUT # 4.5 K/uL (1.8-7.0); NEUT % 69.7 % (50.0-75.0); RBC 4.18 Mil/uL (3.80-5.20); RED CELL DISTRIBUTION WIDTH 13.1 % (11.5-14.5); WHITE BLOOD COUNT 6.5 K/uL (4.8-10.8)
[2018-06-27 15:00] LABS: INR 1.1; PROTHROMBIN TIME 12.4 SECONDS (9.7-12.2)
[2018-06-27 15:14] LABS: ALB/GLOB RATIO 1.4 (1.0-2.1); ALBUMIN 4.6 g/dL (3.5-5.0); ALT/SGPT 35 U/L (9-52); AST/SGOT 31 U/L (14-36); BLOOD UREA NITROGEN 12 mg/dL (7-17); CALCIUM 9.6 mg/dl (8.6-10.4); GFR NON-AFRICAN AMERICAN > 60
--- NOTE | 2018-06-27 15:36 | CT ---
Date of service: 06/27/2018 PROCEDURE: CT HEAD WITHOUT CONTRAST. HISTORY: syncope COMPARISON: Noncontrast head CT performed 03/02/18 TECHNIQUE: Axial computed tomography images were obtained through the head/brain without intravenous contrast. Radiation dose: Total exam DLP = 1058.91 mGy-cm. This CT exam was performed using one or more of the following dose reduction techniques: Automated exposure control, adjustment of the mA and/or kV according to patient size, and/or use of iterative reconstruction technique. FINDINGS: Mild streak artifact limits evaluation of the skull base. HEMORRHAGE: No intracranial hemorrhage. BRAIN: No mass effect or edema. Intracranial atherosclerotic calcifications. Mild scattered white matter hypodensities, which are nonspecific, but often seen with chronic microvascular ischemic disease. Please note that MRI with diffusion imaging is more sensitive in the detection of acute ischemic event. VENTRICLES: No hydrocephalus. CALVARIUM: Unremarkable. PARANASAL SINUSES: Mucosal thickening of the ethmoid air cells. MASTOID AIR CELLS: Unremarkable as visualized. No inflammatory changes. OTHER FINDINGS: None. IMPRESSION: No acute intracranial pathology identified. Incidental findings as above.
--- NOTE | 2018-06-27 15:47 | RAD ---
Date of service: 06/27/2018 HISTORY: chest pain COMPARISON: None available. FINDINGS: LUNGS: Poor inspiration with low lung volumes, crowded bronchovascular markings and minor bibasilar atelectasis.. PLEURA: No significant pleural effusion identified, no pneumothorax apparent. CARDIOVASCULAR: No discernible aortic atherosclerotic calcification present. Normal cardiac size. No pulmonary vascular congestion. OSSEOUS STRUCTURES: No significant abnormalities. VISUALIZED UPPER ABDOMEN: Normal. OTHER FINDINGS: None. IMPRESSION: Poor inspiration with low lung volumes, crowded bronchovascular markings and minor bibasilar atelectasis..
[2018-06-27 17:30] LABS: SQUAMOUS EPITHIAL < 1 /hpf (0-5); URINE BILIRUBIN NEGATIVE (NEGATIVE); URINE BLOOD 1+ (NEGATIVE); URINE CLARITY Clear (Clear); URINE COLOR Straw (YELLOW); URINE GLUCOSE (UA) NORMAL (Normal); URINE LEUKOCYTE ESTERASE NEG Leu/uL (Negative); URINE PROTEIN NEGATIVE (NEGATIVE); URINE UROBILINOGEN NORMAL mg/dL (0.2-1.0)
--- NOTE | 2018-06-27 17:58 | CP.PCM.HP ---
<Rosanne Richard - Last Filed: 06/27/18 17:33> History of Present Illness - History of Present Illness History of Present Illness: cc: "syncope" Ms. Layla Abdi is a 67 year old female PMH hypertension, diabetes, hyperlipidemia, sleep apnea, nephrolithiasis, vertigo sent up to ED from the Clinic for syncope and hypertension. At home, the patient woke up today flushed and sweaty. Her blood pressure readings at home this morning were 228/110 and 198/88. She was feeling dizzy as she arrived for her Clinic appointment but was her normal self. It was noted her pressure was still high at the clinic when she was roomed. While in the middle of talking, she started to slump over and closed her eyes for 5 seconds, her daughter shook her which immediately woke her up. She was disoriented for about 10 seconds after that. She took her morning medications, including her antihypertensives just prior to leaving for Clinic, around 8am. At time of interview, patient and family report significant improvement and is now asymptomatic. Denies palpitations, abdominal pain, nausea, vomiting, constipation, diarrhea. The entire family at home is sick with URI, although patient stays in her portion of the house as much as possible to avoid contagion. PMD: [facility] [place] [facility]: HTN, DM, HLD, sleep apnea, nephrolithiasis, dysphagia, vertigo, hypothyroid, ACL/PCL tear - left Med: ASA, Lisinopril, HCTZ, Simvastatin, Metformin Gabapentin, meclizine, Omeprazole All: ibuprofen- anaphylaxis FamHx: Mother - HTN, [place] @ 62, Father - CAD SxHx: appendectomy, umbilical hernia repair, cataracts SocHx: Quit tobacco 25 years ago, denies EtOH, denies illicit drugs. Lives in apartment with family, has not worked in over a decade only 1/wk. Full Code Present on Admission - Present on Admission Any Indicators Present on Admission: No Review of Systems - Constitutional Constitutional: Chills, Excessive Sweating, Fatigue, Headache, Lethargy, Malaise. absent: Anorexia, Fever, Frequent Falls, Night Sweats, Weight Gain, Weight Loss - EENT Eyes: Change in Vision, Diplopia, Floaters. absent: Decreased Night Vision, Discharge, Dry Eye, Pain Ears: Tinnitus, Dizziness. absent: Abnormal Hearing Nose/Mouth/Throat: absent: Nasal Congestion, Nasal Discharge, Nasal Obstruction - Cardiovascular Cardiovascular: Chest Pain, Chest Pain with Activity, Syncope. absent: Claudication, Leg Edema - Respiratory Respiratory: Cough. absent: Dyspnea, Snoring - Gastrointestinal Gastrointestinal: absent: Bloating, Constipation, Diarrhea, Dyspepsia, Dysphagia, Heartburn - Genitourinary Genitourinary: absent: Hematuria, Urinary Frequency, Urinary Hesitance - Musculoskeletal Musculoskeletal: absent: Atrophy, Joint Swelling, Myalgias - Integumentary Integumentary: absent: Dry Skin, Erythema, Pruritus, Rash - Neurological Neurological: Headaches, Syncope. absent: Numbness, Tingling - Psychiatric Psychiatric: Anxiety. absent: Abnormal Sleep Pattern, Confusion, Hallucinations - Endocrine Endocrine: Cold Intolorance, Excessive Sweating, Fatigue, Flushing. absent: Heat Intolorance, Polydipsia, Polyphagia, Polyuria - Hematologic/Lymphatic Hematologic: absent: Easy Bleeding, Easy Bruising Past Patient History - Infectious Disease Hx of Infectious Diseases: None - Tetanus Immunizations Tetanus Immunization: Unknown - Past Medical History & Family History Past Medical History?: Yes - Past Social History Smoking Status: Former Smoker Alcohol: None Drugs: Denies - CARDIAC Hx Atrial Fibrillation: Yes (?) Hx Hypertension: Yes - PULMONARY Hx Sleep Apnea: Yes - NEUROLOGICAL Hx Neurological Disorder: Yes Hx Vertigo: Yes - HEENT Hx HEENT Problems: Yes Hx Cataracts: Yes (BILAT.) - RENAL Hx Chronic Kidney Disease: Yes Hx Kidney Stones: Yes - INTEGUMENTARY Hx Dermatological Problems: No - MUSCULOSKELETAL/RHEUMATOLOGICAL Hx Musculoskeletal Disorders: Yes Hx Falls: No Other/Comment: HX: UMBILICAL HERNIA - GASTROINTESTINAL Hx Gastrointestinal Disorders: No - GENITOURINARY/GYNECOLOGICAL Hx Genitourinary Disorders: No - PSYCHIATRIC Hx Depression: Yes Hx Substance Use: No - SURGICAL HISTORY Hx Appendectomy: Yes - ANESTHESIA Hx Anesthesia: Yes Hx Anesthesia Reactions: No Hx Malignant Hyperthermia: No Meds Allergies/Adverse Reactions: Allergies Allergy/AdvReac Type Severity Reaction Status Date / Time ibuprofen Allergy Severe ANAPHYLAXIS Verified 04/23/18 13:58 Physical Exam - Constitutional Appears: Well, No Acute Distress - Head Exam Head Exam: ATRAUMATIC, NORMOCEPHALIC - Eye Exam Eye Exam: EOMI, PERRL - ENT Exam ENT Exam: Mucous Membranes Moist - Neck Exam Neck exam: Negative for: Lymphadenopathy, Thyromegaly - Respiratory Exam Respiratory Exam: Clear to Auscultation Bilateral, NORMAL BREATHING PATTERN. absent: Rales, Rhonchi, Wheezes - Cardiovascular Exam Cardiovascular Exam: REGULAR RHYTHM, +S1, +S2. absent: Gallop, Rubs, Systolic Murmur - GI/Abdominal Exam GI & Abdominal Exam: Normal Bowel Sounds, Soft. absent: Tenderness - Extremities Exam Extremities exam: Positive for: normal capillary refill, normal inspection, peda l pulses present. Negative for: joint swelling, tenderness Additional comments: IV access in R AC L knee restricted ROM from known ACL injury - Back Exam Back exam: absent: CVA tenderness (L), CVA tenderness (R) - Neurological Exam Neurological exam: Alert, CN II-XII Intact, Normal Gait, Oriented x3, Reflexes Normal - Psychiatric Exam Psychiatric exam: Anxious, Normal Affect, Normal Mood - Skin Skin Exam: Dry, Intact, Normal Color, Warm Additional comments: flushed Results - Vital Signs Recent Vital Signs: Last Vital Signs Temp 98 F 06/27/18 16:35 Pulse 67 06/27/18 16:35 Resp 18 06/27/18 16:35 BP 134/83 06/27/18 16:35 Pulse Ox 98 06/27/18 16:35 - Labs Result Diagrams: 06/27/18 14:47 06/27/18 14:47 Labs: Laboratory Results - last 24 hr 06/27/18 06/27/18 06/27/18 14:38 14:47 14:47 WBC 6.5 RBC 4.18 Hgb 13.1 Hct 37.3 MCV 89.3 MCH 31.2 H MCHC 35.0 RDW 13.1 Plt Count 175 MPV 9.0 Neut % (Auto) 69.7 Lymph % (Auto) 19.9 L [place] % (Auto) 6.4 Eos % (Auto) 3.6 Baso % (Auto) 0.4 Neut # (Auto) 4.5 Lymph # (Auto) 1.3 [place] # (Auto) 0.4 Eos # (Auto) 0.2 Baso # (Auto) 0.0 PT 12.4 H INR 1.1 APTT 27 Sodium Potassium Chloride Carbon Dioxide Anion Gap BUN Creatinine Est GFR ( Amer) Est GFR (Non-Af Amer) POC Glucose (mg/dL) 100 Random Glucose Calcium Total Bilirubin AST ALT Alkaline Phosphatase Troponin I Total Protein Albumin Globulin Albumin/Globulin Ratio 06/27/18 14:47 WBC RBC Hgb Hct MCV MCH MCHC RDW Plt Count MPV Neut % (Auto) Lymph % (Auto) [place] % (Auto) Eos % (Auto) Baso % (Auto) Neut # (Auto) Lymph # (Auto) [place] # (Auto) Eos # (Auto) Baso # (Auto) PT INR APTT Sodium 141 Potassium 4.4 Chloride 103 Carbon Dioxide 32 H Anion Gap 10 BUN 12 Creatinine 0.7 Est GFR ( Amer) > 60 Est GFR (Non-Af Amer) > 60 POC Glucose (mg/dL) Random Glucose 104 Calcium 9.6 Total Bilirubin 0.5 AST 31 ALT 35 Alkaline Phosphatase 90 Troponin I < 0.0120 Total Protein 7.9 Albumin 4.6 Globulin 3.3 Albumin/Globulin Ratio 1.4 Assessment & Plan - Assessment and Plan (Free Text) Assessment: 67yo F PMH HTN, HLD, DM, sleep apnea, vertigo, hypothyroid admitted for syncope. Plan: Syncope - likely 2/2 hypertension - Patient now aSx - Last ECHO done 03/02/18: LVEF 65% - CXR (06/27): no active disease - CT Head (06/27): no acute intracranial pathology - UA (06/27): negative - without intervention, patient BP decreased to 132/84 - monitor on tele Chest Pain r/o ACS - ANISH neg on admission - EKG shows sinus bradycardia @ 54 - f/u ANISH and EKG x2 @ 8p and 4a - monitor on tele Hypertension - home HCTZ 25mg po daily in PM - home Lisinopril 20mg po daily in AM - monitor vitals Diabetes - home Metformin 500mg po bid - Accuchecks ACHS - Hypoglycemia protocol - ISS CAD - home ASA 81mg po daily - home Lisinopril 20mg po daily - home Simvastatin -> Crestor 5mg po HS Hypothyroidism - home Levothyroxine 25mcg po daily Hyperlipidemia - home Crestor 5mg po HS PPx DVT: Lovenox 40 sc daily, Adeline stockings GI: not indicated Diet: HHD 2g Na d/w Dr. Burak Richard PGY-1 - Date & Time Date: 06/27/18 Time: 16:30 <Marija Sumner V - Last Filed: 06/28/18 00:27> Results - Vital Signs Recent Vital Signs: Last Vital Signs Temp 98 F 06/27/18 22:31 Pulse 58 L 06/27/18 22:31 Resp 20 06/27/18 22:31 BP 144/75 06/27/18 22:31 Pulse Ox 97 06/27/18 22:31 - Labs Result Diagrams: 06/27/18 14:47 06/27/18 14:47 Labs: Laboratory Results - last 24 hr 06/27/18 06/27/18 06/27/18 14:38 14:47 14:47 WBC 6.5 RBC 4.18 Hgb 13.1 Hct 37.3 MCV 89.3 MCH 31.2 H MCHC 35.0 RDW 13.1 Plt Count 175 MPV 9.0 Neut % (Auto) 69.7 Lymph % (Auto) 19.9 L [place] % (Auto) 6.4 Eos % (Auto) 3.6 Baso % (Auto) 0.4 Neut # (Auto) 4.5 Lymph # (Auto) 1.3 [place] # (Auto) 0.4 Eos # (Auto) 0.2 Baso # (Auto) 0.0 PT 12.4 H INR 1.1 APTT 27 Sodium Potassium Chloride Carbon Dioxide Anion Gap BUN Creatinine Est GFR ( Amer) Est GFR (Non-Af Amer) POC Glucose (mg/dL) 100 Random Glucose Calcium Total Bilirubin AST ALT Alkaline Phosphatase Total Creatine Kinase CK-MB (Mass) Troponin I Total Protein Albumin Globulin Albumin/Globulin Ratio Urine Color Urine Clarity Urine pH Ur Specific [place] Urine Protein Urine Glucose (UA) Urine Ketones Urine Blood Urine Nitrate Urine Bilirubin Urine Urobilinogen Ur Leukocyte Esterase Urine WBC (Auto) Urine RBC (Auto) Ur Squamous Epith Cells 06/27/18 06/27/18 06/27/18 14:47 17:21 20:44 WBC RBC Hgb Hct MCV MCH MCHC RDW Plt Count MPV Neut % (Auto) Lymph % (Auto) [place] % (Auto) Eos % (Auto) Baso % (Auto) Neut # (Auto) Lymph # (Auto) [place] # (Auto) Eos # (Auto) Baso # (Auto) PT INR APTT Sodium 141 Potassium 4.4 Chloride 103 Carbon Dioxide 32 H Anion Gap 10 BUN 12 Creatinine 0.7 Est GFR ( Amer) > 60 Est GFR (Non-Af Amer) > 60 POC Glucose (mg/dL) Random Glucose 104 Calcium 9.6 Total Bilirubin 0.5 AST 31 ALT 35 Alkaline Phosphatase 90 Total Creatine Kinase 38 CK-MB (Mass) 0.40 Troponin I < 0.0120 < 0.0120 Total Protein 7.9 Albumin 4.6 Globulin 3.3 Albumin/Globulin Ratio 1.4 Urine Color Straw Urine Clarity Clear Urine pH 6.0 Ur Specific [place] 1.004 Urine Protein Negative Urine Glucose (UA) Normal Urine Ketones Negative Urine Blood 1+ H Urine Nitrate Negative Urine Bilirubin Negative Urine Urobilinogen Normal Ur Leukocyte Esterase Neg Urine WBC (Auto) < 1 Urine RBC (Auto) < 1 Ur Squamous Epith Cells < 1 06/27/18 21:22 WBC RBC Hgb Hct MCV MCH MCHC RDW Plt Count MPV Neut % (Auto) Lymph % (Auto) [place] % (Auto) Eos % (Auto) Baso % (Auto) Neut # (Auto) Lymph # (Auto) [place] # (Auto) Eos # (Auto) Baso # (Auto) PT INR APTT Sodium Potassium Chloride Carbon Dioxide Anion Gap BUN Creatinine Est GFR ( Amer) Est GFR (Non-Af Amer) POC Glucose (mg/dL) 102 Random Glucose Calcium Total Bilirubin AST ALT Alkaline Phosphatase Total Creatine Kinase CK-MB (Mass) Troponin I Total Protein Albumin Globulin Albumin/Globulin Ratio Urine Color Urine Clarity Urine pH Ur Specific [place] Urine Protein Urine Glucose (UA) Urine Ketones Urine Blood Urine Nitrate Urine Bilirubin Urine Urobilinogen Ur Leukocyte Esterase Urine WBC (Auto) Urine RBC (Auto) Ur Squamous Epith Cells Attending/Attestation - Attestation I have personally seen and examined this patient.: Yes I have fully participated in the care of the patient.: Yes I have reviewed all pertinent clinical information: Yes Notes (Text): This is late computer entry for 06/27/18. Patient seen, examined, and case discussed with day-time resident. patient was seen in the clinic today following nearsyncopal episode witnessed by daughter this morning. Patient has known history of vertigo. Blood pressure uncontrolled this morning SBP:200s. patient did take her blood pressure medications in the morning. patient was seen in the clinic today. Her blood pressure medications changed to high dose of diuretic, continue with renee. patient's blood pressure in the clinic 190/100s in the clinic chart; was offered treatment in the clinic but deferred to going to ED for further evaluation. patient noted at beside this afternoon about 545PM very comfortable with daughter present. Patient reports she becomes very afraid when they change her blood pressure medications because how it affects the heart I did indicate to her the blood pressure medications do not directly act on the heart. Will start her on the new diuretic dose and continue her renee. Patient did not received intervention by the ED; it is likely her bp meds she took this morning took affect later in the evening. Assessment/plan 1) Near syncope Uncontrolled hypertension Anxiety Assessment/plan * Patient now aSx * Last ECHO done 03/02/18: LVEF 65% * CXR (06/27): no active disease * CT Head (06/27): no acute intracranial pathology * UA (06/27): negative * without intervention, patient BP decreased to 132/84 * monitor on tele 2) Chest Pain Assessment/Plan * ANISH neg on admission * EKG shows sinus bradycardia @ 54 * f/u ANISH and EKG x2 @ 8p and 4a * monitor on tele 3) Uncontrolled Hypertension Assessment/Plan * home HCTZ 25mg po daily in PM * home Lisinopril 20mg po daily in AM * monitor vitals 4) history of Diabetes Assessment/Plan - home Metformin 500mg po bid - Accuchecks ACHS - Hypoglycemia protocol - ISS 5. History of CAD Assessment/Plan - home ASA 81mg po daily - home Lisinopril 20mg po daily - home Simvastatin -> Crestor 5mg po HS 6. Hypothyroidism Assessment/Plan - home Levothyroxine 25mcg po daily 7. Hyperlipidemia Assessment/Plan - home Crestor 5mg po HS 8. history of vertigo * antivert 9. history of vascular insuffiency * resume adeline stockings 10. History of ACL/PCL tear (left lower extremity) * Patient has specialized boots she wears 11. PPx * DVT: Lovenox 40 sc daily, Adeline stockings * GI: not indicated * Diet: HHD 2g Na Disposition: observe patient overnight; optimize anti-hypertensive; likely discharge tomorrow
[2018-06-27] MEDS ORDERED: Dextrose 50% SYRINGE Inj (50 ml) IV PRN (18:27)
[2018-06-27] MEDS ORDERED: Glucagon Recombinant 1 mg Inj IM PRN (18:27)
[2018-06-27 20:19] VITALS: RESP 20
[2018-06-27] MEDS: (Novolin R) Insulin Human Regular 100 units/ml vial SC SCH (22:16)
[2018-06-28 04:33] LABS: BASO % 0.7 % (0.0-2.0); EOS # 0.3 K/uL (0.0-0.7); HEMOGLOBIN 12.4 g/dL (11.0-16.0); LYMPH # 1.6 K/uL (1.0-4.3); LYMPH % 30.6 % (20.0-40.0); MEAN CORPUSCULAR HEMOGLOBIN 31.1 pg (27.0-31.0); MEAN CORPUSCULAR HGB CONC 34.6 g/dL (33.0-37.0); MEAN PLATELET VOLUME 8.8 fL (7.2-11.7); MONO # 0.4 K/uL (0.0-0.8); MONO % 7.3 % (0.0-10.0); NEUT # 2.9 K/uL (1.8-7.0); NEUT % 55.4 % (50.0-75.0); NRBC % 0.1 % (0.0-2.0); RBC 3.99 Mil/uL (3.80-5.20); RED CELL DISTRIBUTION WIDTH 13.1 % (11.5-14.5); WHITE BLOOD COUNT 5.2 K/uL (4.8-10.8)
[2018-06-28 05:38] LABS: ALB/GLOB RATIO 1.3 (1.0-2.1); ALBUMIN 3.9 g/dL (3.5-5.0); ALT/SGPT 38 U/L (9-52); AST/SGOT 30 U/L (14-36); BLOOD UREA NITROGEN 13 mg/dL (7-17); CALCIUM 9.1 mg/dl (8.6-10.4); GFR NON-AFRICAN AMERICAN > 60
[2018-06-28] MEDS ORDERED: Levothyroxine 25 MCG TAB PO SCH (06:30)
[2018-06-28] MEDS: (Novolin R) Insulin Human Regular 100 units/ml vial SC SCH ×2 (08:12→12:00)
[2018-06-28 08:43] VITALS: TEMP 98.2; O2SAT 96
[2018-06-28] MEDS ORDERED: Enoxaparin 40 mg Syringe SC SCH (10:00)
[2018-06-28 10:24] VITALS: BP 136/82
--- NOTE | 2018-06-28 11:59 | CP.PCM.DIS ---
<Osman Elder - Last Filed: 06/28/18 11:56> Provider - Provider Date of Admission: 06/27/18 15:40 Attending physician: Marija Sumner DO Time Spent in preparation of Discharge (in minutes): 45 Hospital Course - Lab Results Lab Results: Most Recent Lab Values WBC 5.2 K/uL (4.8-10.8) 06/28/18 04:30 RBC 3.99 Mil/uL (3.80-5.20) 06/28/18 04:30 Hgb 12.4 g/dL (11.0-16.0) 06/28/18 04:30 Hct 35.9 % (34.0-47.0) 06/28/18 04:30 MCV 90.0 fL (81.0-99.0) 06/28/18 04:30 MCH 31.1 pg (27.0-31.0) H 06/28/18 04:30 MCHC 34.6 g/dL (33.0-37.0) 06/28/18 04:30 RDW 13.1 % (11.5-14.5) 06/28/18 04:30 Plt Count 159 K/uL (130-400) 06/28/18 04:30 MPV 8.8 fL (7.2-11.7) 06/28/18 04:30 Neut % (Auto) 55.4 % (50.0-75.0) 06/28/18 04:30 Lymph % (Auto) 30.6 % (20.0-40.0) 06/28/18 04:30 [place] % (Auto) 7.3 % (0.0-10.0) 06/28/18 04:30 Eos % (Auto) 6.0 % (0.0-4.0) H 06/28/18 04:30 Baso % (Auto) 0.7 % (0.0-2.0) 06/28/18 04:30 Neut # (Auto) 2.9 K/uL (1.8-7.0) 06/28/18 04:30 Lymph # (Auto) 1.6 K/uL (1.0-4.3) 06/28/18 04:30 [place] # (Auto) 0.4 K/uL (0.0-0.8) 06/28/18 04:30 Eos # (Auto) 0.3 K/uL (0.0-0.7) 06/28/18 04:30 Baso # (Auto) 0.0 K/uL (0.0-0.2) 06/28/18 04:30 PT 12.4 SECONDS (9.7-12.2) H 06/27/18 14:47 INR 1.1 06/27/18 14:47 APTT 27 SECONDS (21-34) 06/27/18 14:47 Sodium 138 mmol/L (132-148) 06/28/18 04:30 Potassium 4.0 mmol/L (3.6-5.2) 06/28/18 04:30 Chloride 102 mmol/L (98-107) 06/28/18 04:30 Carbon Dioxide 30 mmol/L (22-30) 06/28/18 04:30 Anion Gap 10 (10-20) 06/28/18 04:30 BUN 13 mg/dL (7-17) 06/28/18 04:30 Creatinine 0.7 mg/dL (0.7-1.2) 06/28/18 04:30 Est GFR ( Amer) > 60 06/28/18 04:30 Est GFR (Non-Af Amer) > 60 06/28/18 04:30 POC Glucose (mg/dL) 96 mg/dL (65-110) 06/28/18 06:50 Random Glucose 93 mg/dL (65-105) 06/28/18 04:30 Calcium 9.1 mg/dl (8.6-10.4) 06/28/18 04:30 Phosphorus 4.8 mg/dL (2.5-4.5) H 06/28/18 04:30 Magnesium 1.6 mg/dL (1.6-2.3) 06/28/18 04:30 Total Bilirubin 0.6 mg/dL (0.2-1.3) 06/28/18 04:30 AST 30 U/L (14-36) 06/28/18 04:30 ALT 38 U/L (9-52) 06/28/18 04:30 Alkaline Phosphatase 68 U/L (38-126) 06/28/18 04:30 Total Creatine Kinase 32 U/L (30-135) 06/28/18 04:30 CK-MB (Mass) 0.30 ng/mL (0.0-3.38) 06/28/18 04:30 Troponin I < 0.0120 ng/mL (0.00-0.120) 06/28/18 04:30 Total Protein 6.8 g/dL (6.3-8.3) 06/28/18 04:30 Albumin 3.9 g/dL (3.5-5.0) 06/28/18 04:30 Globulin 2.9 gm/dL (2.2-3.9) 06/28/18 04:30 Albumin/Globulin Ratio 1.3 (1.0-2.1) 06/28/18 04:30 Urine Color Straw (YELLOW) 06/27/18 17:21 Urine Clarity Clear (Clear) 06/27/18 17:21 Urine pH 6.0 (5.0-8.0) 06/27/18 17:21 Ur Specific [place] 1.004 (1.003-1.030) 06/27/18 17:21 Urine Protein Negative mg/dL (NEGATIVE) 06/27/18 17:21 Urine Glucose (UA) Normal mg/dL (Normal) 06/27/18 17:21 Urine Ketones Negative mg/dL (NEGATIVE) 06/27/18 17:21 Urine Blood 1+ (NEGATIVE) H 06/27/18 17:21 Urine Nitrate Negative (NEGATIVE) 06/27/18 17:21 Urine Bilirubin Negative (NEGATIVE) 06/27/18 17:21 Urine Urobilinogen Normal mg/dL (0.2-1.0) 06/27/18 17:21 Ur Leukocyte Esterase Neg Y[place]/uL (Negative) 06/27/18 17:21 Urine WBC (Auto) < 1 /hpf (0-5) 06/27/18 17:21 Urine RBC (Auto) < 1 /hpf (0-3) 06/27/18 17:21 Ur Squamous Epith Cells < 1 /hpf (0-5) 06/27/18 17:21 - Hospital Course Hospital Course: 67yo F PMH HTN, HLD, DM, sleep apnea, vertigo, hypothyroid admitted for syncope. Plan: Pre-Syncope - likely 2/2 hypertension/anxiety - Last ECHO done 7/22/18: LVEF 65% - CXR (06/27): no active disease - CT Head (06/27): no acute intracranial pathology - without intervention, patient BP decreased to 132/84 - monitor on tele; patient had no events -Trops negative x3; EKG unchanged Hypertension - home HCTZ 25mg po daily in PM - home Lisinopril 20mg po daily in AM - no change in home meds The patients elevated blood pressure resolved on its own with no medical intervention; there will be no change in her home meds Diabetes - home Metformin 500mg po bid c/w at home CAD - home ASA 81mg po daily - home Lisinopril 20mg po daily - home Simvastatin -> Crestor 5mg po HS -will c/w at home Hypothyroidism - home Levothyroxine 25mcg po daily -c/w at home Hyperlipidemia - home Crestor 5mg po HS Sleep Apnea/Obesity Hypoventilation Syndrome -patient had prior sleep studies and will need to f/u in clinic for a new sleep study prescription -patient woudl likely benefit from CPAP at night as she does not sleep well at night 2/2 to obesity -dietary and exercise education given Anxiety -patient would benefit from outpatient psychotherapy as patient is overly anxious and this greatly affects BP The patient is stable for d/c as per Dr. Sumner Please followup at the clinic within the week for the appropriate referrals for sleep study, and psychiatry, and nutrition no medications were added/changed. Osman Elder PGY3 Discharge Exam - Head Exam Head Exam: ATRAUMATIC, NORMOCEPHALIC - Eye Exam Eye Exam: EOMI, Normal appearance, PERRL - ENT Exam ENT Exam: Mucous Membranes Moist - Respiratory Exam Respiratory Exam: Clear to PA & Lateral, NORMAL BREATHING PATTERN, UNREMARKABLE - Cardiovascular Exam Cardiovascular Exam: REGULAR RHYTHM, +S1, +S2 - GI/Abdominal Exam GI & Abdominal Exam: Normal Bowel Sounds, Soft, Unremarkable. absent: Tenderness - Extremities Exam Extremities exam: full ROM - Back Exam Back exam: absent: CVA tenderness (L), CVA tenderness (R) - Neurological Exam Neurological exam: Alert, CN II-XII Intact, Oriented x3 - Skin Skin Exam: Warm Discharge Plan - Follow Up Plan Condition: STABLE Disposition: HOME/ ROUTINE Instructions: Heart Healthy Diet, Low Salt Diet, Syncope (DC), Syncope (GEN) Additional Instructions: Activity as tolerated. POR FAVOR;SIGUE CON VINCENT ENLA CLINICA ESTA SEMANA PARAREFERIDOS PARA ELIANE COSAS SIGUENTES. SLEEP STUDY; PORQUE TIENES SLEEP APNEA ESTA INDICADO REHACER TUSLEEP STUDY DE NUEVO.NECESITAS UN REFERIDO DE LA CLINICA PARA ESTO. PSIQUIATRIA/PSICOLOGO; ES RECOMENDO TAMBIEN CONSULTAR CON UN ESPACIALISTA PARATU ANSIEDAD.TAMBIEN NECESITAS CON REFERIDO DE LA CLINICA PARA ESTO. PERDER PESO ES MUY IMPORTANTE HACER EJERCITO Y COMER SALUDABLE.ESTO VA AYUDANTE LO DYLAN SIGUECON LASMEDICINAS QUE ESTABAS TOMANDO.NO NOA\BECKY CAMBIANDO NADA DE LO QUE ESTABAS TOMANDO. Referrals: Clinic,Med Surg [Non-Staff] - <Marija Sumner V - Last Filed: 06/28/18 22:30> Provider - Provider Date of Admission: 06/27/18 15:40 Attending physician: Marija Sumner, DO Hospital Course - Lab Results Lab Results: Most Recent Lab Values WBC 5.2 K/uL (4.8-10.8) 06/28/18 04:30 RBC 3.99 Mil/uL (3.80-5.20) 06/28/18 04:30 Hgb 12.4 g/dL (11.0-16.0) 06/28/18 04:30 Hct 35.9 % (34.0-47.0) 06/28/18 04:30 MCV 90.0 fL (81.0-99.0) 06/28/18 04:30 MCH 31.1 pg (27.0-31.0) H 06/28/18 04:30 MCHC 34.6 g/dL (33.0-37.0) 06/28/18 04:30 RDW 13.1 % (11.5-14.5) 06/28/18 04:30 Plt Count 159 K/uL (130-400) 06/28/18 04:30 MPV 8.8 fL (7.2-11.7) 06/28/18 04:30 Neut % (Auto) 55.4 % (50.0-75.0) 06/28/18 04:30 Lymph % (Auto) 30.6 % (20.0-40.0) 06/28/18 04:30 [place] % (Auto) 7.3 % (0.0-10.0) 06/28/18 04:30 Eos % (Auto) 6.0 % (0.0-4.0) H 06/28/18 04:30 Baso % (Auto) 0.7 % (0.0-2.0) 06/28/18 04:30 Neut # (Auto) 2.9 K/uL (1.8-7.0) 06/28/18 04:30 Lymph # (Auto) 1.6 K/uL (1.0-4.3) 06/28/18 04:30 [place] # (Auto) 0.4 K/uL (0.0-0.8) 06/28/18 04:30 Eos # (Auto) 0.3 K/uL (0.0-0.7) 06/28/18 04:30 Baso # (Auto) 0.0 K/uL (0.0-0.2) 06/28/18 04:30 PT 12.4 SECONDS (9.7-12.2) H 06/27/18 14:47 INR 1.1 06/27/18 14:47 APTT 27 SECONDS (21-34) 06/27/18 14:47 Sodium 138 mmol/L (132-148) 06/28/18 04:30 Potassium 4.0 mmol/L (3.6-5.2) 06/28/18 04:30 Chloride 102 mmol/L (98-107) 06/28/18 04:30 Carbon Dioxide 30 mmol/L (22-30) 06/28/18 04:30 Anion Gap 10 (10-20) 06/28/18 04:30 BUN 13 mg/dL (7-17) 06/28/18 04:30 Creatinine 0.7 mg/dL (0.7-1.2) 06/28/18 04:30 Est GFR ( Amer) > 60 06/28/18 04:30 Est GFR (Non-Af Amer) > 60 06/28/18 04:30 POC Glucose (mg/dL) 96 mg/dL (65-110) 06/28/18 06:50 Random Glucose 93 mg/dL (65-105) 06/28/18 04:30 Calcium 9.1 mg/dl (8.6-10.4) 06/28/18 04:30 Phosphorus 4.8 mg/dL (2.5-4.5) H 06/28/18 04:30 Magnesium 1.6 mg/dL (1.6-2.3) 06/28/18 04:30 Total Bilirubin 0.6 mg/dL (0.2-1.3) 06/28/18 04:30 AST 30 U/L (14-36) 06/28/18 04:30 ALT 38 U/L (9-52) 06/28/18 04:30 Alkaline Phosphatase 68 U/L (38-126) 06/28/18 04:30 Total Creatine Kinase 32 U/L (30-135) 06/28/18 04:30 CK-MB (Mass) 0.30 ng/mL (0.0-3.38) 06/28/18 04:30 Troponin I < 0.0120 ng/mL (0.00-0.120) 06/28/18 04:30 Total Protein 6.8 g/dL (6.3-8.3) 06/28/18 04:30 Albumin 3.9 g/dL (3.5-5.0) 06/28/18 04:30 Globulin 2.9 gm/dL (2.2-3.9) 06/28/18 04:30 Albumin/Globulin Ratio 1.3 (1.0-2.1) 06/28/18 04:30 Urine Color Straw (YELLOW) 06/27/18 17:21 Urine Clarity Clear (Clear) 06/27/18 17:21 Urine pH 6.0 (5.0-8.0) 06/27/18 17:21 Ur Specific [place] 1.004 (1.003-1.030) 06/27/18 17:21 Urine Protein Negative mg/dL (NEGATIVE) 06/27/18 17:21 Urine Glucose (UA) Normal mg/dL (Normal) 06/27/18 17:21 Urine Ketones Negative mg/dL (NEGATIVE) 06/27/18 17:21 Urine Blood 1+ (NEGATIVE) H 06/27/18 17:21 Urine Nitrate Negative (NEGATIVE) 06/27/18 17:21 Urine Bilirubin Negative (NEGATIVE) 06/27/18 17:21 Urine Urobilinogen Normal mg/dL (0.2-1.0) 06/27/18 17:21 Ur Leukocyte Esterase Neg [place]/uL (Negative) 06/27/18 17:21 Urine WBC (Auto) < 1 /hpf (0-5) 06/27/18 17:21 Urine RBC (Auto) < 1 /hpf (0-3) 06/27/18 17:21 Ur Squamous Epith Cells < 1 /hpf (0-5) 18 17:21 Attending/Attestation - Attestation I have personally seen and examined this patient.: Yes I have fully participated in the care of the patient.: Yes I have reviewed all pertinent clinical information, including history, physical exam and plan: Yes Notes (Text): Patient seen, examined and case discussed with medical support specialist. Patient seen this morning. Patient denies chest pain, denies palpitations, denies lightheadedness. Patient's cardiac enzymes are negative. EKG noted for normal sinus rhythm in 60s except for 2nd one which is sinus bradycardia which is expected given vagal input at night while sleeping. No change in medication recommendation from her PMD. Patient may need referral by PMD discretion regarding anxiety and possible sleep apnea evaluation via the [facility]. Patient follows up regularly in the [facility]. Blood pressure within normal limits. This is brief summary of patient's hospitalization. Please refer to EMR for further detail of record. Discharge Tammie 1) Near syncope-->Resolved Uncontrolled hypertension-->controlled Anxiety, Chronic Assessment/plan * Patient now aSx * Last ECHO done 03/02/18: LVEF 65% * CXR (06/27): no active disease * CT Head (06/27): no acute intracranial pathology * UA (06/27): negative * Anam negative X3 * monitor on tele 2) Chest Pain-->resolved Assessment/Plan * ANAM negative X3 3) Uncontrolled Hypertension-->chronic Assessment/Plan * home HCTZ 25mg po daily in PM * home Lisinopril 20mg po daily in AM * monitor vitals 4) history of Diabetes-->chronic Assessment/Plan - home Metformin 500mg po bid - Accuchecks ACHS - Hypoglycemia protocol - ISS 5. History of CAD-->chronic Assessment/Plan - home ASA 81mg po daily - home Lisinopril 20mg po daily - home Simvastatin -> Crestor 5mg po HS 6. Hypothyroidism-->chronic Assessment/Plan - home Levothyroxine 25mcg po daily 7. Hyperlipidemia-->chronic Assessment/Plan - home Crestor 5mg po HS 8. History of vertigo-->chronic * antivert 9. History of vascular insuffiency-->chronic * resume cezar stockings 10. 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 PPx * DVT: Lovenox 40 sc daily, Cezar stockings * GI: not indicated * Diet: HHD 2g Na
[2018-06-28 12:52] VITALS: PULSE 93
[2018-06-28] MEDS ORDERED: Influenza Vaccine 60 MCG/0.5 ML SYR (3 yr & up) IM ONE (14:00)
--- NOTE | 2018-06-30 23:14 | CARD ---
APPROVED REPORT Date of service: 06/28/2018 EKG Measurement Heart [id number] ID [id number] <Conclusion> Sinus bradycardia Nonspecific T wave abnormality Abnormal ECG
== END 2018-06-28 18:00 | disposition home or self-care (01) ==
LOC: C.ER 14:27 → C.9E 15:40 → C.6T 19:07
PROVIDERS: ADMIT Hospitalist; ATTEND Hospitalist
DX: R55 Syncope and collapse (principal); I10 Essential (primary) hypertension; F41.9 Anxiety disorder, unspecified; E11.22 Type 2 diabetes mellitus with diabetic chronic kidney disease; N18.9 Chronic kidney disease, unspecified; E78.5 Hyperlipidemia, unspecified; I12.9 Hypertensive chronic kidney disease with stage 1 through stage 4 chronic kidney disease, or unspecified chronic kidney disease; I48.91 Unspecified atrial fibrillation; J06.9 Acute upper respiratory infection, unspecified; Z87.442 Personal history of urinary calculi; Z87.891 Personal history of nicotine dependence; Z90.49 Acquired absence of other specified parts of digestive tract; Z82.49 Family history of ischemic heart disease and other diseases of the circulatory system; Z79.84 Long term (current) use of oral hypoglycemic drugs; I25.10 Atherosclerotic heart disease of native coronary artery without angina pectoris
CPT/HCPCS: 36415; 70450; 71045; 80053; 81001; 82948; 83735; 84100; 84484; 85025; 85610; 85730; 90471; 90674; 97116; 97162; 99285; G0378; G8978; G8979; J1650

== ENCOUNTER 2018-11-27 15:22 | Emergency (ER) | payer OTHER ==
[2018-11-27 15:27] VITALS: BMI 29.8
[2018-11-27 15:31] VITALS: RESP 20
[2018-11-27] MEDS ORDERED: Sodium Chloride 0.9% 1,000 ML IV STA (16:09)
[2018-11-27] MEDS ORDERED: Sodium Chloride 0.9% 1,000 ML ONE (16:19)
--- NOTE | 2018-11-27 16:19 | C.PDOC ---
History Of Present Illness 67 y/o female with PMHx of kidney stones, presents to the ED with complaints of right flank pain x 2 days, gradually worsening. Pain is described as severe and non-radiating. Associated with nausea and non-bilious non-bloody vomiting. Patient also felt subjectively feverish yesterday. Patient reports difficulty urinating. Time Seen by Provider: 11/27/18 15:46 Chief Complaint (Nursing): Female Genitourinary History Per: Patient History/Exam Limitations: no limitations Onset/Duration Of Symptoms: Days (x 2) Current Symptoms Are (Timing): Still Present Severity: Severe Past Medical History Reviewed: Historical Data, Nursing Documentation, Vital Signs Vital Signs: Last Vital Signs Temp 98.4 F 11/27/18 15:27 Pulse 87 11/27/18 15:27 Resp 20 11/27/18 15:27 BP 149/79 11/27/18 15:27 Pulse Ox 96 11/27/18 15:27 - Medical History PMH: Atrial Fibrillation (?), Depression, Diabetes, HTN, Hypercholesterolemia, Hyperlipidemia, Kidney Stones, Chronic Kidney Disease, Sleep Apnea Surgical History: Appendectomy - [facility] Procedures INJECT/INFUSE NEC (08/22/14) INTRODUCTION OF SERUM/TOX/VACCINE INTO MUSCLE, PERC APPROACH (09/04/16) UMBIL HERNIA REPAIR NEC (07/21/98) Family History: States: Hypertension - Social History Hx Tobacco Use: No Hx Alcohol Use: No Hx Substance Use: No - Immunization History Hx Tetanus Toxoid Vaccination: Yes Hx Influenza Vaccination: Yes Hx Pneumococcal Vaccination: Yes Review Of Systems Except As Marked, All Systems Reviewed And Found Negative. Cardiovascular: Negative for: Chest Pain Respiratory: Negative for: Shortness of Breath Physical Exam - Physical Exam Additional Physical Exam Comments: Constitutional: No acute distress. Head: Normocephalic. Atraumatic. Eyes: PERRL. ENT: Moist mucous membranes. Neck: Supple. Cardiovascular: Regular rate. Radial pulse 2+ bilaterally. Chest: No tenderness. Respiratory: Clear to auscultation bilaterally. GI: Soft. Nondistended. Suprapubic tenderness. Back: Right CVA tenderness. Musculoskeletal: No tenderness or swelling of extremities. Skin: No rash. Neurologic: Alert, no focal deficit. ED Course And Treatment - Laboratory Results Result Diagrams: 11/27/18 16:23 11/27/18 16:23 O2 Sat by Pulse Oximetry: 96 (RA) Pulse Ox Interpretation: Normal Medical Decision Making Medical Decision Making: Plan: Blood work and UA ordered. Urine culture sent. Pending noncontrast CT Abdomen/Pelvis. Patient given 1L IV fluids, 30 mg IV Toradol, and [address] A/P resulted: Accession No. : [id number] Patient Name / ID : JAC MARQUES / [id number] Exam Date : 11/27/2018 16:54:14 ( Approved ) Study Comment : Sex / Age : F / 67Y Creator : Lisa Moise Dictator : Maritza Mohr MD Marketing Director Assisted Living : Merchandise Shopper : Maritza Mohr MD Approver2 : Report Date : 11/27/2018 17:14:39 My Comment : PROCEDURE: CT Abdomen and Pelvis without Oral or IV contrast. HISTORY: R flank pain COMPARISON: None available. TECHNIQUE: Contiguous axial images of the abdomen and pelvis. No oral or IV contrast administered. Coronal and Sagittal reformats generated and reviewed. Radiation dose: Total exam DLP = 1166.71 mGy-cm. This CT exam was performed using one or more of the following dose reduction techniques: Automated exposure control, adjustment of the mA and/or kV according to patient size, and/or use of iterative reconstruction technique. FINDINGS: There is limited evaluation of the solid organs without the administration of IV contrast. LOWER THORAX: No visible consolidation, pleural effusion, or pneumothorax. Small to moderate hiatal hernia. LIVER: Hypoattenuation of the liver compatible with hepatic steatosis. GALLBLADDER AND BILE DUCTS: Unremarkable unenhanced appearance. PANCREAS: Unremarkable unenhanced appearance. SPLEEN: 7 mm probable splenule. Otherwise unremarkable unenhanced appearance. ADRENALS: Unremarkable unenhanced appearance. KIDNEYS AND URETERS: Bilateral renal cortical scarring. 2.7 cm right lower pole renal hypodense lesion measures approximately 3 HU consistent with a simple cyst. Nonobstructing bilateral renal calculi. The kidneys enhance symmetrically. No hydronephrosis or obstructing calculus identified. BLADDER: Thick-walled under distended urinary bladder. REPRODUCTIVE: Uterus is present. APPENDIX: The appendix is not identified. No secondary signs of acute appendicitis. BOWEL: The stomach is nondistended. Lack of oral contrast limits evaluation for bowel pathology. The bowel loops appear within normal limits of caliber without evidence of intestinal obstruction. PERITONEUM: No significant free fluid. No definite free air. LYMPH NODES: No bulky lymphadenopathy identified. VASCULATURE: Atherosclerotic calcification of the aorta and branches. No aortic aneurysm. BONES: Degenerative changes of the spine. OTHER FINDINGS: None. IMPRESSION: Bilateral renal cortical scarring. 2.7 cm right lower pole renal cyst. Nonobstructing bilateral renal calculi. No hydronephrosis or obstructing calculus identified. The appendix is not identified. No secondary signs of acute appendicitis identified. Hypoattenuation of the liver compatible with hepatic steatosis. Thick-walled under distended urinary bladder; recommend correlation with urinalysis. Small to moderate hiatal hernia. Additional findings as above. Patient in no distress. Discharge home, f/u urology, return to ED for worsening pain, fever, vomiting, or any other problem. Disposition - Disposition Referrals: Jake Sood MD [Staff Provider] - Disposition: HOME/ ROUTINE Disposition Time: 17:15 Condition: GOOD Prescriptions: Ciprofloxacin [Cipro] 500 mg PO BID #14 tab Ondansetron ODT [Zofran ODT] 4 mg PO Q8 #12 odt Tamsulosin [Flomax] 0.4 mg PO DAILY #5 cap Instructions: Flank Pain Forms: [facility] [employer] [facility] (Georgian) - Clinical Impression Clinical Impression: Flank pain - Scribe Statement The provider has reviewed the documentation as recorded by the Ana Umaña Provider Attestation: All medical record entries made by the Estephanieibyao were at my direction and personally dictated by me. I have reviewed the chart and agree that the record accurately reflects my personal performance of the history, physical exam, medical decision making, and the department course for this patient. I have also personally directed, reviewed, and agree with the discharge instructions and disposition.
[2018-11-27 16:27] LABS: SQUAMOUS EPITHIAL 1 /hpf (0-5); URINE BILIRUBIN NEGATIVE (NEGATIVE); URINE BLOOD 1+ (NEGATIVE); URINE CLARITY Hazy (Clear); URINE COLOR Yellow (YELLOW); URINE GLUCOSE (UA) NORMAL (Normal); URINE HYALINE CAST 0-2 /lpf (0-2); URINE LEUKOCYTE ESTERASE TRACE Leu/uL (Negative); URINE PROTEIN NEGATIVE (NEGATIVE); URINE UROBILINOGEN NORMAL mg/dL (0.2-1.0)
[2018-11-27 16:35] LABS: BASO % 0.2 % (0.0-2.0); EOS % 0.8 % (0.0-4.0); HEMOGLOBIN 13.3 g/dL (11.0-16.0); LYMPH # 0.7 K/uL (1.0-4.3); LYMPH % 12.6 % (20.0-40.0); MEAN CELL VOLUME 89.2 fL (81.0-99.0); MEAN CORPUSCULAR HEMOGLOBIN 30.7 pg (27.0-31.0); MEAN CORPUSCULAR HGB CONC 34.5 g/dL (33.0-37.0); MEAN PLATELET VOLUME 9.1 fL (7.2-11.7); MONO # 0.3 K/uL (0.0-0.8); MONO % 5.6 % (0.0-10.0); NEUT # 4.3 K/uL (1.8-7.0); NEUT % 80.8 % (50.0-75.0); NRBC % 0.1 % (0.0-2.0); RBC 4.32 Mil/uL (3.80-5.20); RED CELL DISTRIBUTION WIDTH 12.8 % (11.5-14.5); WHITE BLOOD COUNT 5.4 K/uL (4.8-10.8)
[2018-11-27 16:54] LABS: ALB/GLOB RATIO 1.4 (1.0-2.1); ALBUMIN 4.3 g/dL (3.5-5.0); ALT/SGPT 30 U/L (9-52); AST/SGOT 34 U/L (14-36); BLOOD UREA NITROGEN 18 mg/dL (7-17); CALCIUM 9.3 mg/dl (8.6-10.4); GFR NON-AFRICAN AMERICAN > 60; LIPASE 104 U/L (23-300)
--- NOTE | 2018-11-27 17:41 | CT ---
PROCEDURE: CT Abdomen and Pelvis without Oral or IV contrast. HISTORY: R flank pain COMPARISON: None available. TECHNIQUE: Contiguous axial images of the abdomen and pelvis. No oral or IV contrast administered. Coronal and Sagittal reformats generated and reviewed. Radiation dose: Total exam DLP = 1166.71 mGy-cm. This CT exam was performed using one or more of the following dose reduction techniques: Automated exposure control, adjustment of the mA and/or kV according to patient size, and/or use of iterative reconstruction technique. FINDINGS: There is limited evaluation of the solid organs without the administration of IV contrast. LOWER THORAX: No visible consolidation, pleural effusion, or pneumothorax. Small to moderate hiatal hernia. LIVER: Hypoattenuation of the liver compatible with hepatic steatosis. GALLBLADDER AND BILE DUCTS: Unremarkable unenhanced appearance. PANCREAS: Unremarkable unenhanced appearance. SPLEEN: 7 mm probable splenule. Otherwise unremarkable unenhanced appearance. ADRENALS: Unremarkable unenhanced appearance. KIDNEYS AND URETERS: Bilateral renal cortical scarring. 2.7 cm right lower pole renal hypodense lesion measures approximately 3 HU consistent with a simple cyst. Nonobstructing bilateral renal calculi. The kidneys enhance symmetrically. No hydronephrosis or obstructing calculus identified. BLADDER: Thick-walled under distended urinary bladder. REPRODUCTIVE: Uterus is present. APPENDIX: The appendix is not identified. No secondary signs of acute appendicitis. BOWEL: The stomach is nondistended. Lack of oral contrast limits evaluation for bowel pathology. The bowel loops appear within normal limits of caliber without evidence of intestinal obstruction. PERITONEUM: No significant free fluid. No definite free air. LYMPH NODES: No bulky lymphadenopathy identified. VASCULATURE: Atherosclerotic calcification of the aorta and branches. No aortic aneurysm. BONES: Degenerative changes of the spine. OTHER FINDINGS: None. IMPRESSION: Bilateral renal cortical scarring. 2.7 cm right lower pole renal cyst. Nonobstructing bilateral renal calculi. No hydronephrosis or obstructing calculus identified. The appendix is not identified. No secondary signs of acute appendicitis identified. Hypoattenuation of the liver compatible with hepatic steatosis. Thick-walled under distended urinary bladder; recommend correlation with urinalysis. Small to moderate hiatal hernia. Additional findings as above.
[2018-11-27 19:20] VITALS: BP 122/76; PULSE 77; TEMP 99.3; O2SAT 95
== END 2018-11-27 19:20 | disposition home or self-care (01) ==
LOC: C.ER 15:22
DX: R10.9 Unspecified abdominal pain (principal)
CPT/HCPCS: 74176; 80053; 81001; 83690; 85025; 87086; 96361; 96374; 96375; 99285; J1885; J2405; J7030